=== PATIENT | female | born 1935 | race Caucasian/White ===

== ENCOUNTER 2019-05-26 19:07 | Inpatient (IN) | payer MEDICARE ==
[~2019-05-26] VITALS: Ht 170.2 cm; Wt 92.7 kg
--- NOTE | ~2019-05-26 | EC ---
PATIENT:TRIP WITT DATE OF SERVICE: 05/26/19 SEX: F MEDICAL RECORD: [id number] DATE OF : 37 LOCATION:D.M2 D.212 AGE OF PATIENT: 83 ADMISSION DATE: 05/26/19 REFERRING PHYSICIAN: INTERPRETING PHYSICIAN: MAYRA VELIZ MD ECHOCARDIOGRAM REPORT ECHO CHARGES 4 ECHO COMPLETE Date: 05/27/19 CLINICAL DIAGNOSIS: AFIB, HTN ECHOCARDIOGRAPHIC MEASUREMENTS (adult normal given) AC root (d.<3.7cm) 3.1 cm LV Septum d (<1.2 cm> 0.6 cm Valve Excursion 1.2 cm LV Septum (systole) 0.8 cm Left Atria (s.<4.0cm> 4.1 cm LVPW d(<1.2cm) 0.8 cm RV (d.<2.3cm) 2.5 cm LVPW (sytole) 0.9 cm LV diastole(<5.6CM) 5.3 cm MV E-F(>70mm/sec) cm LV systole 4.0 cm LVOT Diameter 1.8 cm MV exc.(>10mm) cm Est.ejection fraction (50-75%) % DOPPLER: LVIT cm/sec A 31 cm/sec E 115 cm/sec LA cm/sec RVSP 27.0 mmHg LVOT 87 cm/sec AOP1/2T m/s Asc. Ao 121 cm/sec RVOT 76 cm/sec RA cm/sec PA 91 cm/sec AV Gradient Peak 5.9 mmHg AV Mean 3.7 mmHg AV Area 1.8 cm MV Gradient Peak 5.8 mmHg MV Mean 2.3 mmHg MV Area cm COMMENTS: Head Athletic Trainer: Maylin [facility] Loom Overhauler: 1 Dr. Veliz TAPE# PACS Pericardial Effusion Y DATE OF SERVICE: ECHOCARDIOGRAM FINDINGS: 1. Left ventricular chamber size is within normal limits. Left ventricular systolic function is normal at 55%. 2. Left atrium is enlarged at 4.1 cm. Right atrium and right ventricle chamber sizes are as well mildly dilated. 3. Valvular structures have normal structure and motion. ECHOCARDIOGRAM REPORT [id number] TRIP WITT 4. Doppler interrogation reveals mild mitral regurgitation, mild tricuspid regurgitation, no other valvular insufficiency or stenosis. Pulmonary systolic pressure is estimated at 27 mmHg. 5. No evidence of pericardial effusion or left ventricular thrombus. 6. The patient is in and out of atrial fibrillation during the study. TRANSINT:[id number] Voice Confirmation ID: [id number] DOCUMENT ID: [id number] MAYRA VELIZ MD CC: [id number] DICTATION DATE: 05/28/191113 WEB DESIGN SPECIALIST: 05/28/19 1857 ADM IN [place] [id number] [place] [address]
--- NOTE | ~2019-05-26 | CN ---
PATIENT NAME:TRIP WITT MEDICAL RECORD: [id number] : 37 LOCATION:D. D.2124 ADMIT DATE: 05/26/19 ACCOUNT: [id number] CONSULTING PHYSICIAN: MAYRA OLIVEROS MD REFERRING PHYSICIAN: MILE YIP MD DATE OF CONSULTATION: 05/27/2019 CARDIOLOGY CONSULTATION DIAGNOSES: 1. Atrial fibrillation. 2. Weakness. 3. Shortness of breath. 4. Hypertension. 5. Renal insufficiency. HISTORY OF PRESENT ILLNESS: Mrs. Witt was admitted at [facility] within the last week with new-onset atrial fibrillation. She was placed on metoprolol, diltiazem, discharged. She presents here with continued weakness and shortness of breath. She has continued with her atrial fibrillation. When she presented to the Emergency Room, she was with rapid ventricular response in the 160s. Her Cardizem and metoprolol have been continued here, her heart rate still in the 90-110 range. Her systolic blood pressures in the 150 range. She is only on diltiazem, a total of 120 mg every day and metoprolol 25 mg b.i.d. She does have renal insufficiency with a creatinine of 2.6. I do not know the status if this is old or new. She is not having any chest pain or chest discomfort. She has no ST-T abnormalities on her EKG other than the atrial fibrillation. PHYSICAL EXAMINATION: CONSTITUTIONAL/GENERAL APPEARANCE: Well nourished, well developed, appears stated age. EYES: Lids and conjunctivae noninjected. No discharge. No pallor. ENT: Lips within normal limit. No cyanosis. No pallor. NECK: Carotid arteries, bilateral normal upstroke. No bruits. No thrills. No jugular venous pressure or distention. CERVICAL LYMPH NODES: Nontender. Nonenlarged. THYROID: Not enlarged. No nodules. CARDIOVASCULAR: Irregularly irregular with atrial fibrillation. RESPIRATORY: Respiratory effort, unlabored. Normal curvature. No thoracic deformity. No chest wall tenderness. Percussion, resonant. Auscultation, clear. No wheezes, no rales, no rhonchi. ABDOMEN: Soft, nondistended, nontender. No abdominal pain, no vomiting and normal appetite. MUSCULOSKELETAL: No joint tenderness, normal gait, normal tone. SKIN: Warm and dry. OVERALL IMPRESSION: Atrial fibrillation. The rate is not well controlled on her current medications. We will not increase her beta-magnolia due to her renal insufficiency, but we can increase the diltiazem as her blood pressure can tolerate this. We will increase the diltiazem to 180 mg a day. Echocardiogram has been ordered, really no other cardiac workup will be needed, only rate control of the atrial fibrillation. The other question will be anticoagulation. It appears that she has a history of falling and unsteadiness. She is on Lovenox right now. We will see if she is a candidate for long-term anticoagulation, it would be very questionable. CONSULT REPORT [id number] TRIP WITT TRANSINT:[id number] Voice Confirmation ID: [id number] DOCUMENT ID: [id number] MAYRA OLIVEROS MD CC: [id number] DICTATION DATE: 05/27/19 1056 PAGE DESIGNER: 05/27/19 1558 ADM IN [facility] [address] [place] [address]
[2019-05-26] MEDS ORDERED: METOPROLOL TART25 MG PO (19:11)
[2019-05-26] MEDS ORDERED: CELEXA10 MG PO (19:11)
[2019-05-26] MEDS ORDERED: CARDIZEM30 MG PO (19:24)
[2019-05-26 19:40] LABS: BASOPHILS 0.3 % (0-2); EOSINOPHILS 2.3 % (0-7); HEMATOCRIT 36.7 % (36.0-48.0); HEMOGLOBIN 12.1 g/dL (12-16); IMMATURE GRANULOCYTES 0.1 % (0-5); LYMPHOCYTES 9.8 % (15-50); MCH 31.9 pg (26.0-34.0); MCV 96.8 fL (80.0-100.0); MEAN PLATELET VOLUME 9.3 fL (7.4-10.4); MONOCYTES 10.6 % (2-11); NEUTROPHILS 76.9 % (40-80); PLATELET COUNT 278 10x3/uL (130-400); RBC 3.79 10x6/uL (4.00-5.40); RDW 14.6 % (11.5-14.5); WBC 7.9 10x3/uL (4.8-10.8)
--- NOTE | 2019-05-26 19:43 | NUR ---
EKG SHOWN TO EDP AT THIS TIME.
--- NOTE | 2019-05-26 19:52 | NUR ---
URINE SENT TO LAB
[2019-05-26 19:55] LABS: CALC OSMOLALITY 288 mosm/kg (275-300); CALCIUM 8.9 mg/dL (8.5-10.1); CARBON DIOXIDE 24.1 mmol/L (21.0-32.0); CHLORIDE - SERUM 107 mmol/L (98-107); CREATININE - SERUM 2.6 mg/dL (0.6-1.3); GLUCOSE 129 mg/dL (74-106); POTASSIUM - SERUM 4.2 mmol/L (3.5-5.1); SODIUM 140 mmol/L (136-145); UREA NITROGEN 36 mg/dL (7-18); eGFR NON AFRICAN AMERICAN 18 mL/min (90-120)
[2019-05-26 20:12] LABS: ALBUMIN 3.1 g/dL (3.4-5.0); ALKALINE PHOSPHATASE 84 U/L (30-120); ALT (SGPT) 47 U/L (10-68); BILIRUBIN - TOTAL 0.36 mg/dL (0.2-1.3); CKMB 2.1 U/L (0.0-3.6); CREATINE KINASE 107 UL (21-215); MAGNESIUM - SERUM 1.6 mg/dL (1.8-2.4); PROTEIN - SERUM 6.5 g/dL (6.4-8.2); THYROID STIMULATING HORMONE 4.11 uIU/mL (0.36-3.74); TROPONIN-I < 0.017 ng/mL (0.000-0.060)
[2019-05-26 20:19] LABS: INR 1.07 (0.85-1.17); PROTIME 13.8 SECONDS (11.6-15.0)
[2019-05-26 20:20] LABS: APTT 32.4 SECONDS (22.8-39.4)
[2019-05-26 20:25] LABS: UDS - AMPHET NEGATIVE QUAL (NEGATIVE); UDS - BARB NEGATIVE QUAL (NEGATIVE); UDS - BENZO NEGATIVE QUAL (NEGATIVE); UDS - COCAINE NEGATIVE QUAL (NEGATIVE); UDS - OPIATE NEGATIVE QUAL (NEGATIVE); UDS - PCP NEGATIVE QUAL (NEGATIVE); UDS - THC NEGATIVE QUAL (NEGATIVE)
[2019-05-26 20:31] VITALS: BP 164/114
[2019-05-26 20:31] LABS: BILIRUBIN NEGATIVE (NEGATIVE); GLUCOSE NEGATIVE (NEGATIVE); KETONE NEGATIVE (NEGATIVE); NITRITE NEGATIVE (NEGATIVE); UROBILINOGEN NORMAL (NORMAL)
[2019-05-26 20:32] LABS: BACTERIA MANY /hpf (NEGATIVE); EPITHELIAL CELLS 0-5 /hpf (0-5); RED CELLS - URINE 0-5 /hpf (0-5); WHITE CELLS - URINE >50 /hpf (NEGATIVE)
--- NOTE | 2019-05-26 20:48 | NUR ---
PT VOIDED ON BEDPAN AT THIS TIME. YELLOW, ODOROUS URINE. 200ML OUTPUT. PT REPOSITIONED FOR COMFORT. DENIES NEEDS. WILL CONTINUE TO MONITOR.
--- NOTE | 2019-05-26 22:02 | NUR ---
ASSISTED WITH BEDPAN AND JOAN [facility]ARE AT THIS TIME. PT VOIDED YELLOW, ODOROUS URINE. REPOSITIONED IN BED. DENIES FURTHER NEEDS. WILL CONTINUE TO MONITOR.
--- NOTE | 2019-05-26 23:36 | NUR ---
RECEIVED FROM ER VIA [facility] ([facility])[3], HISTORY AND MEDS REVIEWED, PLACED ON TELEMRTY, BED IS LOW, SRX2, CALL LIGHT IN REACH, AT BEDSIDE, WILL CONTINUE PLAN OF CARE
[2019-05-26 23:43] VITALS: BP 162/87; BMI 31.4
--- NOTE | 2019-05-26 23:54 | NUR ---
CUSTOMER RELATIONS ASSISTANT ASSESSMETN COMPLETED. PT DENIES ANY DISCOMFORT. VSS. CAF PER CM HR 75. SCABS AND SORES NOTED TO L HIP. BRUISES NOTED TO R CALF AND R ARM. IV TO L HAND WITH NS AT 75CC/HR. IV PATENT. SPOUSE AT BEDSIDE. SR UP X2, CALL LIGHT WITHIN REACH.
[2019-05-27 04:00] VITALS: BP 145/83
--- NOTE | 2019-05-27 07:11 | NUR ---
ASSESSMENT DONE. DENIES NEEDS
[2019-05-27 09:07] VITALS: BP 138/77
[2019-05-27 13:02] LABS: BASOPHILS 0.4 % (0-2); EOSINOPHILS 2.4 % (0-7); HEMATOCRIT 34.9 % (36.0-48.0); HEMOGLOBIN 11.8 g/dL (12-16); IMMATURE GRANULOCYTES 0.3 % (0-5); LYMPHOCYTES 13.5 % (15-50); MCH 32.6 pg (26.0-34.0); MCHC 33.8 g/dL (31.0-37.0); MCV 96.4 fL (80.0-100.0); MEAN PLATELET VOLUME 9.2 fL (7.4-10.4); MONOCYTES 8.4 % (2-11); PLATELET COUNT 243 10x3/uL (130-400); RBC 3.62 10x6/uL (4.00-5.40); RDW 14.7 % (11.5-14.5); WBC 7.6 10x3/uL (4.8-10.8)
[2019-05-27 13:38] LABS: ANION GAP 13.4 mmol/L (8-16); BILIRUBIN - TOTAL 0.4 mg/dL (0.2-1.3); CALCIUM 8.6 mg/dL (8.5-10.1); CARBON DIOXIDE 24.6 mmol/L (21.0-32.0); MAGNESIUM - SERUM 1.7 mg/dL (1.8-2.4); PROTEIN - SERUM 5.8 g/dL (6.4-8.2)
[2019-05-27 13:43] LABS: CREATININE - SERUM 1.8 mg/dL (0.6-1.3)
[2019-05-27 15:27] VITALS: Ht 170.2 cm; Wt 92.7 kg
--- NOTE | 2019-05-27 17:18 | NUR ---
WITHOUT CHANGES OR DISTRESS NOTED AT THIS TIME DENIES NEEDS, FAMILY AT SIDE
--- NOTE | 2019-05-27 18:50 | NUR ---
I have reviewed this patient and I concur with the Shift Assessment completed by the Licensed Practical Nurse today this shift.
[2019-05-27 20:00] VITALS: BP 148/92
--- NOTE | 2019-05-27 21:56 | NUR ---
INITIAL ROUNDS COMPLETED AT 1915 HRS. ASSISTED PT TO BR. VOIDED MODERATE AMOUNT OF URNE. ASSISTED BACK TO BED. PT UNSTEADY ON FEET. ASSESSMENT COMPLETED AT 2019 HRS. VSS. CAF PER CM HR 74. PT ALERT AND ORIENTED TO PERSON AND PLACE. REORIENTED TO TIME. IV TO L HAND SL. LUNGS DIMINISHED IN BASES BILAT. MELO AREA AND SCABS NOTED TO L HIP. BRUISES NOTED TO R ARMA ND R CALF. LEBLANC. PALPABLE PERIPHERAL PULSES. OLD R MASTECTOMY. PM MEDS GIVEN. PT URRENTLY RESTING WITH EYES CLOSED. RESP EVEN AND REGULAR. SRUP X2,CALL LIGHT WITHIN REACH AND BED ALARM ON.
--- NOTE | 2019-05-27 23:16 | NUR ---
HIBICLENS BATH DONE, BED LINENS CHANGED. PT TOLERATED ACTIVITY WELL. SR UP X2, CALL LIGHT WITHIN REACH AND BED ALARM ON.
[2019-05-28] VITALS: BP 159/73
--- NOTE | 2019-05-28 01:29 | NUR ---
PT CRAWLING OUT OF BED STATING SHE NEEDS TO USE THE BATHROOM. ASSISTED PT TO BR. PT VERY UNSTEADY ON FEET. VOIDED SMALL AMOUNT OF YELLOW URINE. ASSISTED BACK TO BED. SR UP X2, CALL LIGHT WITHIN REACH AND BED ALARM ON.
[2019-05-28 04:00] VITALS: BP 144/80
--- NOTE | 2019-05-28 04:59 | NUR ---
PT RESTING WITH EYES CLOSED. RESP EVEN AND REGULAR. SR UP X2, CALL LIGHT WITHIN REACH AND BED ALARM ON.
[2019-05-28 05:03] LABS: BASOPHILS 0.4 % (0-2); EOSINOPHILS 3.5 % (0-7); HEMATOCRIT 34.3 % (36.0-48.0); HEMOGLOBIN 11.5 g/dL (12-16); IMMATURE GRANULOCYTES 0.3 % (0-5); MCH 32.1 pg (26.0-34.0); MCHC 33.5 g/dL (31.0-37.0); MCV 95.8 fL (80.0-100.0); MEAN PLATELET VOLUME 8.8 fL (7.4-10.4); MONOCYTES 10.6 % (2-11); NEUTROPHILS 64.2 % (40-80); PLATELET COUNT 220 10x3/uL (130-400); RBC 3.58 10x6/uL (4.00-5.40); RDW 14.7 % (11.5-14.5); WBC 6.8 10x3/uL (4.8-10.8)
[2019-05-28 05:25] LABS: ALBUMIN 2.9 g/dL (3.4-5.0); BILIRUBIN - TOTAL 0.39 mg/dL (0.2-1.3); CALCIUM 8.5 mg/dL (8.5-10.1); CARBON DIOXIDE 23.9 mmol/L (21.0-32.0); CREATININE - SERUM 1.9 mg/dL (0.6-1.3); MAGNESIUM - SERUM 1.7 mg/dL (1.8-2.4); PHOSPHOROUS 3.4 mg/dL (2.5-4.9); POTASSIUM - SERUM 3.9 mmol/L (3.5-5.1); PROTEIN - SERUM 5.6 g/dL (6.4-8.2)
--- NOTE | 2019-05-28 05:57 | NUR ---
VSS THEOUGHOUT NIGHT. CAF PER CM. PT CONTINUES TO ATTEMPT TO CRAWL OUT OF BED WHEN NEEDS TO USE BR. PT UNABLE TO GRASP CONCEPT OF CALL LIGHT. NEEDS MET; WILL CONTINUE TO MONITOR.
[2019-05-28 07:30] VITALS: BP 153/94
[2019-05-28 11:30] VITALS: BP 142/83
[2019-05-28 15:30] VITALS: BP 148/88
--- NOTE | 2019-05-28 17:30 | NUR ---
I have reviewed this patient and I concur with the Shift Assessment completed by the Licensed Practical Nurse today this shift.
--- NOTE | 2019-05-28 18:03 | NUR ---
PT A/O X3 . VSS. PT LATHARGIC. AND STATES SHE IS NOT FEELING WELL. AT BEDSIDE. BED LOW CALL LIGHT WITHIN REACH. WILL CONTINUE TO MONITOR.
--- NOTE | 2019-05-28 19:50 | NUR ---
REPORT RECIEVED AND INITIAL ROUNDS COMPLETED. PT RESTING IN BED WITH EYES CLOSED. NO FAMILY PRESENT. IV TO LEFT HAND WITH NS @ 75ML/HR. CAF PER TELEMETRY. NONLABORED RESPIRATIONS ON ROOM AIR. CPOC. CALL LIGHT IN REACH.
[2019-05-28 20:00] VITALS: BP 146/74
[2019-05-29 00:01] VITALS: BP 157/80
--- NOTE | 2019-05-29 02:59 | NUR ---
RESTING IN BED. WAS GIVEN TYLENOL FOR GENERALIZED DISCOMFORT AND ALSO GOTTEN UP AND TAKEN TO THE BATHROOM TO VOID. BACK TO BED WITH 2 PERSON ASSISTANCE. GAIT IS UNSTEADY AND FALL PRECAUTIONS ARE IN PLACE. CPOC. IVF INFUSING.
[2019-05-29 05:41] LABS: BASOPHILS 0.5 % (0-2); EOSINOPHILS 3.3 % (0-7); HEMATOCRIT 34.5 % (36.0-48.0); HEMOGLOBIN 11.4 g/dL (12-16); IMMATURE GRANULOCYTES 0.1 % (0-5); LYMPHOCYTES 22.5 % (15-50); MCH 31.7 pg (26.0-34.0); MCV 95.8 fL (80.0-100.0); MEAN PLATELET VOLUME 9.4 fL (7.4-10.4); MONOCYTES 12.8 % (2-11); NEUTROPHILS 60.8 % (40-80); PLATELET COUNT 247 10x3/uL (130-400); RDW 14.7 % (11.5-14.5); WBC 7.3 10x3/uL (4.8-10.8)
[2019-05-29 06:57] LABS: ANION GAP 10.9 mmol/L (8-16); BILIRUBIN - TOTAL 0.38 mg/dL (0.2-1.3); CALCIUM 8.1 mg/dL (8.5-10.1); CARBON DIOXIDE 24.6 mmol/L (21.0-32.0); CREATININE - SERUM 1.8 mg/dL (0.6-1.3); MAGNESIUM - SERUM 1.7 mg/dL (1.8-2.4); PHOSPHOROUS 2.9 mg/dL (2.5-4.9); POTASSIUM - SERUM 3.5 mmol/L (3.5-5.1); PROTEIN - SERUM 6.1 g/dL (6.4-8.2)
--- NOTE | 2019-05-29 07:20 | NUR ---
RECIEVE REPORT. CONFUSE X2. FALL PRECAUTIONS FOLLOWED. ASSIST UP TO RESTROOM. CONTINUE PLAN OF CARE AND SAFETY PRECAUTIONS.
[2019-05-29 09:52] VITALS: BP 138/83
[2019-05-29 13:58] VITALS: BP 142/117
--- NOTE | 2019-05-29 16:14 | NUR ---
Rehab Prescreening Consult recieved and the chart has been reviewed. She is [facility] and will require a preauth for the ARU. Sofie Cline RN Clinical Liaison, Rehab
--- NOTE | 2019-05-29 17:20 | MORECARE ---
CASE MANAGEMENT DISCHARGE SUMMARY PATIENT: TRIP WITT UNIT: [id number] ADM DATE: 05/26/19 AGE: 83 : 36 SEX: F ROOM/BED: D.9718 AUTHOR: MOE,DOC PHYSICIAN: REFERRING PHYSICIAN: MILE YIP MD DATE OF SERVICE: 05/29/19 Discharge Plan Patient Name: TRIP WITT [facility] [facility] 1935 Planned Disposition: Inpatient Rehab Anticipated Discharge Date: 05/30/19 Discharge Date: Expected LOS: 4 Initial Reviewer: [id number] Initial Review Date: 05/29/2019 Generated: 05/29/19 6:20 pm Comments DCP- Discharge Planning Updated by [id number]: Jordon Goodman on 05/29/19 4:[address] Patient Name: TRIP WITT Admission Status: ER Accout number: [id number] Admission Date: 05-26-2019 : 1935 Admission Diagnosis: Attending: COLIN YIP Current LOS: 3 Anticipated DC Date: 05-30-2019 Planned Disposition: Inpatient Rehab Primary Insurance: [facility] MEDICARE SOLUTIONS PLANNED EXTERNAL PROVIDER: [facility] INPATIENT REHAB Discharge Planning Comments: CM RECEIVED INPATIENT REHAB PRESCREENING AND ORDER FOR NEBULIZER AND NEB MEDICATIONS. CM MET WITH PT IN ROOM TO DISCUSS DISCHARGE PLANNING AND NEEDS. PT REPORTS LIVING AT HOME INDEPENDENTLY WITH HER SPOUSE. PT HAS A CANE WITH NO MEDICAL EQUIPMENT PROVIDER PREFERENCE. PT HAS NO OUTSIDE SERVICES ASSISTING IN THE HOME. CM DISCUSSED AVAILABILITY OF HOME HEALTH, REHAB SERVICES AND MEDICAL EQUIPMENT. CM DISCUSSED AVAILABILITY OF REHAB, PROVIDERS AND LOCATIONS. PT WANTS REHAB AT [place]. IMPORTANT MESSAGE FROM MEDICARE PROVIDED AND EXPLAINED. CHOICE SIGNED FOR [facility] INPATIENT RE[facility]. CM WAITING INSURANCE DETERMINATION FOR INPATIENT REHAB AT [place]. Hotel Director: Jordon Goodman DCPIA - Discharge Planning Initial Assessment Updated by [email or web address]: Jordon Goodman on 05/29/19 5:13 pm * Is the patient Alert and Oriented? Yes * How many steps to enter\exit or inside your home? NONE * PCP DR. LEONE * Pharmacy [facility] * Preadmission Environment Home with Family * ADLs Independent * Equipment Cane * Other Equipment NO MEDICAL EQUIPMENT PROVIDER PREFERENCE * List name and contact numbers for known caregivers / representatives who currently or will assist patient after discharge: MONIKA SUGGS, * Verbal permission to speak to the caregivers and representatives has been obtained from the patient. N/A * Community resources currently utilized None * Please name any agencies selected above. NONE * Additional services required to return to the preadmission environment? Yes * Can the patient safely return to the preadmission environment? Yes * Has this patient been hospitalized within the prior 30 days at any hospital? Yes Coverage Notice Reviewer: [id number] Goodman Notice Issued Date-Time: 05/29/2019 16:40 Notice Type: IM Discharge Notice Notice Delivered To: Patient Relationship to Patient: Accounts Receivable Specialist Name: Delivery Method: HAND - Hand Delivered Tory Days: Prior Verbal Notification: Recipient Understood Notice: Yes Recipient Signature: Yes Med Rec Note Co-signed by Attending: Coverage Notice Comment: Reviewer: JASS Goodman Notice Issued Date-Time: 05/29/2019 16:40 Notice Type: Patient Choice Letter Notice Delivered To: Patient Relationship to Patient: Accounts Receivable Specialist Name: Delivery Method: HAND - Hand Delivered Tory Days: Prior Verbal Notification: Recipient Understood Notice: Yes Recipient Signature: Yes Med Rec Note Co-signed by Attending: Coverage Notice Comment: [facility] IP REHAB Patient Name: TRIP WITT Page [id number] at 1720 All edits/amendments must be made on the electronic document DICTATION DATE: 05/29/191719 PRINT PRESS OPERATOR: ALVERTO 05/29/19 172 RPT#: [id number] DC DATE: STATUS: ADM IN [facility] [address] [place] [address] END OF REPORT
[2019-05-29 17:40] VITALS: BP 159/87
--- NOTE | 2019-05-29 20:30 | NUR ---
OT NOTE: PT COMPLETED SIT TO STAND WITH MIN A. PT COMPLETED UE AROM EXS AT EOB WITH SBA. PT COMPLETED FACE WASH WITH SETUP. PT REQUIRED MIN VERBAL CUES. [id number] THANK YOU,GENEVA TIWARI
[2019-05-29 22:23] VITALS: BP 149/99
--- NOTE | 2019-05-30 03:34 | NUR ---
I have reviewed this patient and I concur with the Shift Assessment completed by the Licensed Practical Nurse today this shift.
[2019-05-30 03:53] VITALS: BP 152/100
[2019-05-30 06:15] LABS: BASOPHILS 0.5 % (0-2); EOSINOPHILS 3.2 % (0-7); HEMATOCRIT 33.9 % (36.0-48.0); HEMOGLOBIN 11.2 g/dL (12-16); IMMATURE GRANULOCYTES 0.2 % (0-5); LYMPHOCYTES 22.1 % (15-50); MCH 31.4 pg (26.0-34.0); MEAN PLATELET VOLUME 9.4 fL (7.4-10.4); MONOCYTES 13.2 % (2-11); NEUTROPHILS 60.8 % (40-80); PLATELET COUNT 249 10x3/uL (130-400); RBC 3.57 10x6/uL (4.00-5.40); RDW 14.6 % (11.5-14.5); WBC 6.2 10x3/uL (4.8-10.8)
[2019-05-30 06:51] LABS: ANION GAP 13.1 mmol/L (8-16); BILIRUBIN - TOTAL 0.39 mg/dL (0.2-1.3); CALCIUM 8.4 mg/dL (8.5-10.1); CARBON DIOXIDE 24.8 mmol/L (21.0-32.0); CREATININE - SERUM 1.6 mg/dL (0.6-1.3); MAGNESIUM - SERUM 2.1 mg/dL (1.8-2.4); POTASSIUM - SERUM 3.9 mmol/L (3.5-5.1); PROTEIN - SERUM 6.2 g/dL (6.4-8.2)
--- NOTE | 2019-05-30 07:20 | NUR ---
RECIEVE REPORT. ALERT, TEARFUL, CONFUSED. LINENS SOILED. LINEN CHANGE COMPLETE. ASSIST UP TO CHAIR FOR BREAKFAST. DENIES ANY CHANGE. CONTINUE PLAN OF CARE AND SAFETY PRECAUTIONS.
[2019-05-30 11:02] VITALS: BP 135/91
[2019-05-30 12:00] VITALS: BP 138/98
--- NOTE | 2019-05-30 15:33 | NUR ---
Rehab Note- Spoke with Jasiel with [facility], the patient's case is still pending for an inpatient acute rehab stay, pending Auth # is [id number]. Will continue to await determination from [facility]. Thank you for this referral! Daylin Monreal RN Clinical Liaison, [facility] Rehab
[2019-05-30 17:42] VITALS: BP 168/115
[2019-05-30 22:02] VITALS: BP 153/96
[2019-05-31 00:37] VITALS: BP 144/99
[2019-05-31 06:01] VITALS: BP 158/109
[2019-05-31 06:04] LABS: BASOPHILS 0.4 % (0-2); EOSINOPHILS 3.1 % (0-7); HEMATOCRIT 35.1 % (36.0-48.0); HEMOGLOBIN 11.8 g/dL (12-16); IMMATURE GRANULOCYTES 0.1 % (0-5); LYMPHOCYTES 19.6 % (15-50); MCH 31.8 pg (26.0-34.0); MCHC 33.6 g/dL (31.0-37.0); MCV 94.6 fL (80.0-100.0); MEAN PLATELET VOLUME 9.4 fL (7.4-10.4); MONOCYTES 12.5 % (2-11); NEUTROPHILS 64.3 % (40-80); PLATELET COUNT 252 10x3/uL (130-400); RBC 3.71 10x6/uL (4.00-5.40); RDW 14.5 % (11.5-14.5); WBC 7.1 10x3/uL (4.8-10.8)
[2019-05-31 06:37] LABS: ANION GAP 10.5 mmol/L (8-16); BILIRUBIN - TOTAL 0.45 mg/dL (0.2-1.3); CALCIUM 8.7 mg/dL (8.5-10.1); CARBON DIOXIDE 27.4 mmol/L (21.0-32.0); CREATININE - SERUM 1.5 mg/dL (0.6-1.3); MAGNESIUM - SERUM 1.9 mg/dL (1.8-2.4); POTASSIUM - SERUM 3.9 mmol/L (3.5-5.1); PROTEIN - SERUM 6.2 g/dL (6.4-8.2)
--- NOTE | 2019-05-31 07:10 | NUR ---
REOPORT RECEIVED FROM SENIOR PROGRAM ANALYST AND PATIENT CARE ASSUMED. PATIENT LAYING IN BED ON RT SIDE WITH EYES CLOSED AND BREATHING EVENLY. WILL CONTINUE WITH PLAN OF CARE. SR UP X 2 BED IN LOW POSITION AND CALL LIGHT IN REACH.
--- NOTE | 2019-05-31 10:37 | NUR ---
Recieved a call from Yumiko at [facility]. This patient has been denied for ARU. If physician disagrees a peer to peer can be set up by calling [phone] before 3:00 pm. Discussed in the IDT with CM. Sofie Cline RN CL
--- NOTE | 2019-05-31 11:15 | NUR ---
PATIENT IS STABLE AND VSS. PATIENT DENIES ANY NEEDS OR PAIN. DTR IN ROOM ANSWERED QUESTIONS TO SATISFACTION. WILL CONTINUE TO MONITOR. SR UP X 2 BED IN LOW POSITION AND CALL LIGHT IN REACH.
--- NOTE | 2019-05-31 12:25 | MORECARE ---
CASE MANAGEMENT DISCHARGE SUMMARY PATIENT: TRIP WITT UNIT: [id number] ADM DATE: 05/26/19 AGE: 83 : 36 SEX: F ROOM/BED: D.8674 AUTHOR: MOE,DOC PHYSICIAN: REFERRING PHYSICIAN: MILE YIP MD DATE OF SERVICE: 05/31/19 Discharge Plan Patient Name: TRIP WITT [facility] [facility] 1935 Planned Disposition: Inpatient Rehab Anticipated Discharge Date: 05/31/19 Discharge Date: Expected LOS: 5 Initial Reviewer: [email or web address] Initial Review Date: 05/29/2019 Generated: 05/31/19 1:24 pm Comments DCP- Discharge Planning Updated by [id number]: Jordon Goodman on 05/29/19 4:[address] Patient Name: TRIP WITT Admission Status: ER Accout number: [id number] Admission Date: 05-26-2019 : 1935 Admission Diagnosis: Attending: COLIN YIP Current LOS: 3 Anticipated DC Date: 05-30-2019 Planned Disposition: Inpatient Rehab Primary Insurance: [facility] MEDICARE SOLUTIONS PLANNED EXTERNAL PROVIDER: [facility] INPATIENT REHAB Discharge Planning Comments: CM RECEIVED INPATIENT REHAB PRESCREENING AND ORDER FOR NEBULIZER AND NEB MEDICATIONS. CM MET WITH PT IN ROOM TO DISCUSS DISCHARGE PLANNING AND NEEDS. PT REPORTS LIVING AT HOME INDEPENDENTLY WITH HER SPOUSE. PT HAS A CANE WITH NO MEDICAL EQUIPMENT PROVIDER PREFERENCE. PT HAS NO OUTSIDE SERVICES ASSISTING IN THE HOME. CM DISCUSSED AVAILABILITY OF HOME HEALTH, REHAB SERVICES AND MEDICAL EQUIPMENT. CM DISCUSSED AVAILABILITY OF REHAB, PROVIDERS AND LOCATIONS. PT WANTS REHAB AT [place]. IMPORTANT MESSAGE FROM MEDICARE PROVIDED AND EXPLAINED. CHOICE SIGNED FOR [facility] INPATIENT RE[facility]. CM WAITING INSURANCE DETERMINATION FOR INPATIENT REHAB AT [place]. Artificial Breeding Technician: Jordon Goodman DCPIA - Discharge Planning Initial Assessment Updated by [id number]: Jordon Goodman on 05/29/19 5:13 pm * Is the patient Alert and Oriented? Yes * How many steps to enter\exit or inside your home? NONE * PCP DR. LEONE * Pharmacy [facility] * Preadmission Environment Home with Family * ADLs Independent * Equipment Cane * Other Equipment NO MEDICAL EQUIPMENT PROVIDER PREFERENCE * List name and contact numbers for known caregivers / representatives who currently or will assist patient after discharge: MONIKA SUGGS, * Verbal permission to speak to the caregivers and representatives has been obtained from the patient. N/A * Community resources currently utilized None * Please name any agencies selected above. NONE * Additional services required to return to the preadmission environment? Yes * Can the patient safely return to the preadmission environment? Yes * Has this patient been hospitalized within the prior 30 days at any hospital? Yes Coverage Notice Reviewer: [id number] Goodman Notice Issued Date-Time: 05/29/2019 16:40 Notice Type: IM Discharge Notice Notice Delivered To: Patient Relationship to Patient: Chute Tapper Name: Delivery Method: HAND - Hand Delivered Tory Days: Prior Verbal Notification: Recipient Understood Notice: Yes Recipient Signature: Yes Med Rec Note Co-signed by Attending: Coverage Notice Comment: Reviewer: JASS Goodman Notice Issued Date-Time: 05/29/2019 16:40 Notice Type: Patient Choice Letter Notice Delivered To: Patient Relationship to Patient: Chute Tapper Name: Delivery Method: HAND - Hand Delivered Tory Days: Prior Verbal Notification: Recipient Understood Notice: Yes Recipient Signature: Yes Med Rec Note Co-signed by Attending: Coverage Notice Comment: [facility] IP REHAB Last DP export: 05/29/19 4:20 pm Patient Name: TRIP WITT Page [id number] at 1225 All edits/amendments must be made on the electronic document DICTATION DATE: 05/31/194 DISCHARGE SPECIALIST: ALVERTO 05/31/19 1224 RPT#: [id number] DC DATE: STATUS: ADM IN [facility] [address] [place] [address] END OF REPORT
--- NOTE | 2019-05-31 12:32 | MORECARE ---
CASE MANAGEMENT DISCHARGE SUMMARY PATIENT: TRIP WITT UNIT: [id number] ADM DATE: 05/26/19 AGE: 83 : 36 SEX: F ROOM/BED: D.2124 AUTHOR: MOE,DOC PHYSICIAN: REFERRING PHYSICIAN: MILE YIP MD DATE OF SERVICE: 05/31/19 Discharge Plan Patient Name: TRIP WITT [facility] [facility] 1935 Planned Disposition: Inpatient Rehab Anticipated Discharge Date: 05/31/19 Discharge Date: Expected LOS: 5 Initial Reviewer: [id number] Initial Review Date: 05/29/2019 Generated: 05/31/19 1:32 pm Comments DCP- Discharge Planning Updated by [email or web address]: Jordon Goodman on 05/31/19 11:[address] Patient Name: TRIP WITT Encounter No: [id number] : 1935 Primary Insurance: [facility] MEDICARE SOLUTIONS Anticipated DC Date: 05-31-2019 Planned Disposition: Inpatient Rehab External Planned Provider: [facility] INPATIENT REH[facility] DCP follow-up note: CM SPOKE TO STEVEN OF INPATIENT REHAB AT [facility] MEETING WHO INFORMED TEAM THAT INSURANCE HAS DECLINED INPATIENT REHAB. DR. ARTIS STATES HE WILL DO PEER TO PEER WITH INSURANCE FOR RE CONSIDERATION HE FEELS SHE NEEDS INPATIENT REHAB. RN CM EDDS INFORMED CM THAT INSURANCE HAS INDICATED TO HER THAT [facility] IS APPROPRIATE FOR PT'S NEEDS. CM CALLED PT'S INSURANCE COMPANY PER DIRECTIONS TO ARRANGE PEER TO PEER, , EXT [phone], LEFT VERY DETAILED MESSAGE FOR NURSE HANSON, REQUESTING PEER TO PEER FOR INPATIENT REHAB DENIAL AND LEFT CM AND DR. ARTIS'S PHONE NUMBERS. CM TO MEET WITH PT TO INFORM OF DENIAL AND WAITING RESULTS OF PEER TO PEER FOR INPATIENT REHAB RECONSIDERATION. MELONY Early DCP- Discharge Planning Updated by [id number]: Jordon Goodman on 05/29/19 4:[address] Patient Name: TRIP WITT Admission Status: ER Accout number: [id number] Admission Date: 05-26-2019 : 1935 Admission Diagnosis: Attending: COLIN YIP Current LOS: 3 Anticipated DC Date: 05-30-2019 Planned Disposition: Inpatient Rehab Primary Insurance: [facility] MEDICARE SOLUTIONS PLANNED EXTERNAL PROVIDER: [facility] INPATIENT REHAB Discharge Planning Comments: CM RECEIVED INPATIENT REHAB PRESCREENING AND ORDER FOR NEBULIZER AND NEB MEDICATIONS. CM MET WITH PT IN ROOM TO DISCUSS DISCHARGE PLANNING AND NEEDS. PT REPORTS LIVING AT HOME INDEPENDENTLY WITH HER SPOUSE. PT HAS A CANE WITH NO MEDICAL EQUIPMENT PROVIDER PREFERENCE. PT HAS NO OUTSIDE SERVICES ASSISTING IN THE HOME. CM DISCUSSED AVAILABILITY OF HOME HEALTH, REHAB SERVICES AND MEDICAL EQUIPMENT. CM DISCUSSED AVAILABILITY OF REHAB, PROVIDERS AND LOCATIONS. PT WANTS REHAB AT [place]. IMPORTANT MESSAGE FROM MEDICARE PROVIDED AND EXPLAINED. CHOICE SIGNED FOR [facility] INPATIENT REHAB. CM WAITING INSURANCE DETERMINATION FOR INPATIENT REHAB AT [place]. Senior Pastor: Jordon Goodman DCPIA - Discharge Planning Initial Assessment Updated by [id number]: Jordon Goodman on 05/29/19 5:13 pm * Is the patient Alert and Oriented? Yes * How many steps to enter\exit or inside your home? NONE * PCP DR. LEONE * Pharmacy [facility] * Preadmission Environment Home with Family * ADLs Independent * Equipment Cane * Other Equipment NO MEDICAL EQUIPMENT PROVIDER PREFERENCE * List name and contact numbers for known caregivers / representatives who currently or will assist patient after discharge: HAL WITT, SPOUSE, * Verbal permission to speak to the caregivers and representatives has been obtained from the patient. N/A * Community resources currently utilized None * Please name any agencies selected above. NONE * Additional services required to return to the preadmission environment? Yes * Can the patient safely return to the preadmission environment? Yes * Has this patient been hospitalized within the prior 30 days at any hospital? Yes Coverage Notice Reviewer: [id number] Sravan Goodman Notice Issued Date-Time: 05/29/2019 16:40 Notice Type: IM Discharge Notice Notice Delivered To: Patient Relationship to Patient: Booking Police Officer Name: Delivery Method: HAND - Hand Delivered Tory Days: Prior Verbal Notification: Recipient Understood Notice: Yes Recipient Signature: Yes Med Rec Note Co-signed by Attending: Coverage Notice Comment: Reviewer: [id number] Sravan Goodman Notice Issued Date-Time: 05/29/2019 16:40 Notice Type: Patient Choice Letter Notice Delivered To: Patient Relationship to Patient: Booking Police Officer Name: Delivery Method: HAND - Hand Delivered Tory Days: Prior Verbal Notification: Recipient Understood Notice: Yes Recipient Signature: Yes Med Rec Note Co-signed by Attending: Coverage Notice Comment: [facility] IP REHAB Last DP export: 05/31/19 11:25 a Patient Name: TRIP WITT Page 06106 at 1232 All edits/amendments must be made on the electronic document DICTATION DATE: 05/31/19 1232 ROUTE JUMPER: ALVERTO 05/31/19 1232 RPT#: [id number] DC DATE: STATUS: ADM IN [facility] [address] [place] [address] END OF REPORT
--- NOTE | 2019-05-31 13:45 | NUR ---
Rehab Note- Called [facility] this AM to find that the patient was denied an inpatient acute rehab stay. Nurse that reviewed was Shital Richmond. contact # [phone] Ext [phone]. Will follow at this time due to possible Peer to Peer to be completed. Thank you for this referral! Daylin Monreal RN Clinical Liaison, [facility] Rehab
--- NOTE | 2019-05-31 14:15 | NUR ---
PATIENT REFUSED BATH AND LINEN CHANGE.
--- NOTE | 2019-05-31 14:15 | NUR ---
PATIENT UP TO SHOWER AND HAD COMPLETE LINEN CHANGE. PATIENT TOLERATED WELL. WILL CONTINUE TO MONITOR. SR UP X 2 BED IN LOW POSITION AND CALL LIGHT IN REACH.
--- NOTE | 2019-05-31 17:04 | NUR ---
PATIENT SITTING UP IN BED EATING SUPPER. PATIENT IS STABLE AND VSS. PATIENT DENIES ANY NEEDS OR PAIN. WILL CONTINUE TO MONITOR. SR UP X 2 BED IN LOW POSITION AND CALL LIGHT IN REACH.
--- NOTE | 2019-05-31 18:06 | MORECARE ---
CASE MANAGEMENT DISCHARGE SUMMARY PATIENT: TRIP WITT UNIT: [id number] ADM DATE: 05/26/19 AGE: 83 : 36 SEX: F ROOM/BED: D.6394 AUTHOR: MOE,DOC PHYSICIAN: REFERRING PHYSICIAN: MILE YIP MD DATE OF SERVICE: 05/31/19 Discharge Plan Patient Name: TRIP WITT [facility] [facility] 1935 Planned Disposition: Inpatient Rehab Anticipated Discharge Date: 05/31/19 Discharge Date: Expected LOS: 5 Initial Reviewer: [id number] Initial Review Date: 05/29/2019 Generated: 05/31/19 7:06 pm Comments DCP- Discharge Planning Updated by [id number]: Jordon Wilson on 05/31/19 5:[address] Patient Name: TRIP WITT Encounter No: [id number] : 1935 Primary Insurance: [facility] MEDICARE SOLUTIONS Anticipated DC Date: 05-31-2019 Planned Disposition: Inpatient Rehab External Planned Provider: [facility] INPATIENT REH[facility] DCP follow-up note: CM SPOKE TO STEVEN OF INPATIENT REHAB AT [facility] MEETING WHO INFORMED TEAM THAT INSURANCE HAS DECLINED INPATIENT REHAB. DR. ARTIS STATES HE WILL DO PEER TO PEER WITH INSURANCE FOR RE CONSIDERATION HE FEELS SHE NEEDS INPATIENT REHAB. RN ILIR EDDS INFORMED CM THAT INSURANCE HAS INDICATED TO HER THAT [facility] IS APPROPRIATE FOR PT'S NEEDS. CM CALLED PT'S INSURANCE COMPANY PER DIRECTIONS TO ARRANGE PEER TO PEER, , EXT [phone], LEFT VERY DETAILED MESSAGE FOR NURSE HANSON, REQUESTING PEER TO PEER FOR INPATIENT REHAB DENIAL AND LEFT CM AND DR. ARTIS'S PHONE NUMBERS. CM TO MEET WITH PT TO INFORM OF DENIAL AND WAITING RESULTS OF PEER TO PEER FOR INPATIENT REHAB RECONSIDERATION. Jordon Wilson, CASE MANAGEMENT Appended by Jordon Wilson on 05/31/2019 18:00 CDT: CM MET WITH PT AND SPOUSE IN ROOM INFORMED OF DENIAL BY INSURANCE FOR INPATIENT REHAB. PT AND SPOUSE AGREE THAT PT NEEDS REHAB AND IF PEER TO PEER DOES NOT WORK TO GET PT INTO INPATIENT REHAB HERE, THEY WOULD LIKE REFERRAL TO [facility], CHOICE SIGNED. CM WAITING ON PEER TO PEER WITH INSURANCE BY DR. ARTIS. IF UNSUCCESSFUL, CM WILL SEND REFERRAL TO [facility], [facility]. JORDON WILSON, CASE MANAGEMENT DCP- Discharge Planning Updated by [id number]: Jordon Wilson on 05/29/19 4:[address] Patient Name: TRIP WITT Admission Status: ER Accout number: [id number] Admission Date: 05-26-2019 : 1935 Admission Diagnosis: Attending: COLIN YIP Current LOS: 3 Anticipated DC Date: 05-30-2019 Planned Disposition: Inpatient Rehab Primary Insurance: [facility] MEDICARE SOLUTIONS PLANNED EXTERNAL PROVIDER: [facility] INPATIENT REHAB Discharge Planning Comments: CM RECEIVED INPATIENT REHAB PRESCREENING AND ORDER FOR NEBULIZER AND NEB MEDICATIONS. CM MET WITH PT IN ROOM TO DISCUSS DISCHARGE PLANNING AND NEEDS. PT REPORTS LIVING AT HOME INDEPENDENTLY WITH HER SPOUSE. PT HAS A CANE WITH NO MEDICAL EQUIPMENT PROVIDER PREFERENCE. PT HAS NO OUTSIDE SERVICES ASSISTING IN THE HOME. CM DISCUSSED AVAILABILITY OF HOME HEALTH, REHAB SERVICES AND MEDICAL EQUIPMENT. CM DISCUSSED AVAILABILITY OF REHAB, PROVIDERS AND LOCATIONS. PT WANTS REHAB AT [place]. IMPORTANT MESSAGE FROM MEDICARE PROVIDED AND EXPLAINED. CHOICE SIGNED FOR [facility] INPATIENT RE[facility]. CM WAITING INSURANCE DETERMINATION FOR INPATIENT REHAB AT [place]. Power System Dispatcher: Jordon Wilson DCPIA - Discharge Planning Initial Assessment Updated by [id number]: Jordon Wilson on 05/29/19 5:13 pm * Is the patient Alert and Oriented? Yes * How many steps to enter\exit or inside your home? NONE * PCP DR. LEONE * Pharmacy [facility] * Preadmission Environment Home with Family * ADLs Independent * Equipment Cane * Other Equipment NO MEDICAL EQUIPMENT PROVIDER PREFERENCE * List name and contact numbers for known caregivers / representatives who currently or will assist patient after discharge: HAL WITT, SPOUSE, * Verbal permission to speak to the caregivers and representatives has been obtained from the patient. N/A * Community resources currently utilized None * Please name any agencies selected above. NONE * Additional services required to return to the preadmission environment? Yes * Can the patient safely return to the preadmission environment? Yes * Has this patient been hospitalized within the prior 30 days at any hospital? Yes Coverage Notice Reviewer: [id number] Wilson Notice Issued Date-Time: 05/29/2019 16:40 Notice Type: IM Discharge Notice Notice Delivered To: Patient Relationship to Patient: General Accounting Manager Name: Delivery Method: HAND - Hand Delivered Tory Days: Prior Verbal Notification: Recipient Understood Notice: Yes Recipient Signature: Yes Med Rec Note Co-signed by Attending: Coverage Notice Comment: Reviewer: JASS Wilson Notice Issued Date-Time: 05/29/2019 16:40 Notice Type: Patient Choice Letter Notice Delivered To: Patient Relationship to Patient: General Accounting Manager Name: Delivery Method: HAND - Hand Delivered Tory Days: Prior Verbal Notification: Recipient Understood Notice: Yes Recipient Signature: Yes Med Rec Note Co-signed by Attending: Coverage Notice Comment: [facility] IP REHAB Reviewer: [id number] Wilson Notice Issued Date-Time: 05/31/2019 13:10 Notice Type: Patient Choice Letter Notice Delivered To: Family Member Relationship to Patient: Spouse General Accounting Manager Name: HAL WITT Delivery Method: HAND - Hand Delivered Tory Days: Prior Verbal Notification: Recipient Understood Notice: Yes Recipient Signature: Yes Med Rec Note Co-signed by Attending: Coverage Notice Comment: [facility] Last DP export: 05/31/19 11:32 a Patient Name: TRIP WITT Page [phone] at 1806 All edits/amendments must be made on the electronic document DICTATION DATE: 05/31/191805 SAND DRIER: ALVERTO 05/31/191805 RPT#: [id number] DC DATE: STATUS: ADM IN [facility] [address] [place] [address] END OF REPORT
--- NOTE | 2019-05-31 19:13 | NUR ---
OT NOTE: (DOS 05/30/2019) PT COMPLETED SIT TO STAND WITH CGA/KESHA. PT COMPLETED ADL MOB WITH CGA/MIN A. PT COMPLETED UB HYGIENE TASKS AT EOB WITH SETUP. PT REQUIRED VERBAL CUES FOR TASK COMPLETION. PT ABLE TO WASH FACE, HANDS, ARMS, AND TORSO WITH MIN CUES. PT COMPLETED BUE AROM EXS FOR INCREASED AX TOLERANCE. [phone] THANK YOU,GENEVA TIWARI
[2019-05-31 20:00] VITALS: BP 148/90
--- NOTE | 2019-05-31 20:18 | NUR ---
OT NOTE: PT COMPLETED SUPINE TO SIT WITH MIN A. PT COMPLETED SIT TO STAND WITH CGA/MIN A. PT COMPLETED ADL MOB WITH RW REQUIRED CGA. PT REQUIRED VERBAL ENCOURAGEMENT FOR INCREASED PARTICIPATION. PT COMPLETED FACE HYGIENE WITH SBA. PT COMPLETED UE AROM EXS AT EOB. [phone] THANK YOU,GENEVA TIWARI
[2019-06-01 00:30] VITALS: BP 138/92
--- NOTE | 2019-06-01 03:31 | NUR ---
RESTING WITH EYES CLOSED, RESPERATIONS EVEN, NO S/S DISTRESS NOTED.
--- NOTE | 2019-06-01 03:35 | NUR ---
I have reviewed this patient and I concur with the Shift Assessment completed by the Licensed Practical Nurse today this shift.
[2019-06-01 04:00] VITALS: BP 156/114
--- NOTE | 2019-06-01 07:10 | NUR ---
REPORT RECEIVED FROM [employer] DRAFTER AND PATIENT CARE ASSUMED. PATIENT LAYING IN BED ON BACK WITH EYES CLOSED AND BREATHING EVENLY . WILL CONTINUE WITH PLAN OF CARE. SR UP X 2 BED IN LOW POSITION AND CALL LIGHT IN REACH.
--- NOTE | 2019-06-01 08:19 | NUR ---
PATIENT UP TO BR WITH ASSISTANCE AND HAD BM . BACK TO BS CHAIR. PATIENT IS STABLE AND VSS. PATIENT DENIES ANY NEEDS OR PAIN. WILL CONTINUE WITH PLAN OF CARE. SR UP X 2 BED IN LOW POSITION AND CALL LIGHT IN REACH.
[2019-06-01 09:35] VITALS: BP 128/71
[2019-06-01 13:42] VITALS: BP 125/74
--- NOTE | 2019-06-01 17:36 | MORECARE ---
CASE MANAGEMENT DISCHARGE SUMMARY PATIENT: TRIP WITT UNIT: [id number] ADM DATE: 05/26/19 AGE: 83 : 36 SEX: F ROOM/BED: D.9244 AUTHOR: MOE,DOC PHYSICIAN: REFERRING PHYSICIAN: MILE YIP MD DATE OF SERVICE: 06/01/19 Discharge Plan Patient Name: TRIP WITT [facility] [facility] 1935 Planned Disposition: Retirement Facility Anticipated Discharge Date: 05/31/19 Discharge Date: Expected LOS: 5 Initial Reviewer: [id number] Initial Review Date: 05/29/2019 Generated: 06/01/19 6:35 pm Comments DCP- Discharge Planning Updated by [id number]: Jordon Wilson on 05/31/19 5:[address] Patient Name: TRIP WITT Encounter No: [id number] : 1935 Primary Insurance: [place] MEDIC[employer] SOLUTIONS Anticipated DC Date: 05-31-2019 Planned Disposition: Inpatient Rehab External Planned Provider: [facility] DCP follow-up note: CM SPOKE TO STEVEN OF INPATIENT REHAB AT [facility] MEETING WHO INFORMED TEAM THAT INSURANCE HAS DECLINED INPATIENT REHAB. DR. ARTIS STATES HE WILL DO PEER TO PEER WITH INSURANCE FOR RE CONSIDERATION HE FEELS SHE NEEDS INPATIENT REHAB. RN ILIR EDDS INFORMED CM THAT INSURANCE HAS INDICATED TO HER THAT [facility] IS APPROPRIATE FOR PT'S NEEDS. CM CALLED PT'S INSURANCE COMPANY PER DIRECTIONS TO ARRANGE PEER TO PEER, , EXT [phone], LEFT VERY DETAILED MESSAGE FOR NURSE HANSON, REQUESTING PEER TO PEER FOR INPATIENT REHAB DENIAL AND LEFT CM AND DR. ARTIS'S PHONE NUMBERS. CM TO MEET WITH PT TO INFORM OF DENIAL AND WAITING RESULTS OF PEER TO PEER FOR INPATIENT REHAB RECONSIDERATION. Jordon Wilson, CASE MANAGEMENT Appended by Jordon Wilson on 05/31/2019 18:00 CDT: CM MET WITH PT AND SPOUSE IN ROOM INFORMED OF DENIAL BY INSURANCE FOR INPATIENT REHAB. PT AND SPOUSE AGREE THAT PT NEEDS REHAB AND IF PEER TO PEER DOES NOT WORK TO GET PT INTO INPATIENT REHAB HERE, THEY WOULD LIKE REFERRAL TO [facility], CHOICE SIGNED. CM WAITING ON PEER TO PEER WITH INSURANCE BY DR. ARTIS. IF UNSUCCESSFUL, CM WILL SEND REFERRAL TO [facility], [facility] FOR [facility]HAB. JORDON WILSON, CASE MANAGEMENT DCP- Discharge Planning Updated by [id number]: Jordon Wilson on 05/29/19 4:[address] Patient Name: TRIP WITT Admission Status: ER Accout number: [id number] Admission Date: 05-26-2019 : 1935 Admission Diagnosis: Attending: COLIN YIP Current LOS: 3 Anticipated DC Date: 05-30-2019 Planned Disposition: Inpatient Rehab Primary Insurance: [place] [employer] PLANNED EXTERNAL PROVIDER: [facility] IN[facility] RE[facility] Discharge Planning Comments: CM RECEIVED INPATIENT REHAB PRESCREENING AND ORDER FOR NEBULIZER AND NEB MEDICATIONS. CM MET WITH PT IN ROOM TO DISCUSS DISCHARGE PLANNING AND NEEDS. PT REPORTS LIVING AT HOME INDEPENDENTLY WITH HER SPOUSE. PT HAS A CANE WITH NO MEDICAL EQUIPMENT PROVIDER PREFERENCE. PT HAS NO OUTSIDE SERVICES ASSISTING IN THE HOME. CM DISCUSSED AVAILABILITY OF HOME HEALTH, REHAB SERVICES AND MEDICAL EQUIPMENT. CM DISCUSSED AVAILABILITY OF REHAB, PROVIDERS AND LOCATIONS. PT WANTS REHAB AT [place]. IMPORTANT MESSAGE FROM MEDICARE PROVIDED AND EXPLAINED. CHOICE SIGNED FOR [facility] INPATIENT RE[facility]. CM WAITING INSURANCE DETERMINATION FOR INPATIENT REHAB AT [place]. Weight Count Operator: Jordon Wilson DCPIA - Discharge Planning Initial Assessment Updated by [id number]: Jordon Wilson on 05/29/19 5:13 pm * Is the patient Alert and Oriented? Yes * How many steps to enter\exit or inside your home? NONE * PCP DR. LEONE * Pharmacy [facility] * Preadmission Environment Home with Family * ADLs Independent * Equipment Cane * Other Equipment NO MEDICAL EQUIPMENT PROVIDER PREFERENCE * List name and contact numbers for known caregivers / representatives who currently or will assist patient after discharge: HAL WITT, SPOUSE, * Verbal permission to speak to the caregivers and representatives has been obtained from the patient. N/A * Community resources currently utilized None * Please name any agencies selected above. NONE * Additional services required to return to the preadmission environment? Yes * Can the patient safely return to the preadmission environment? Yes * Has this patient been hospitalized within the prior 30 days at any hospital? Yes External [facility]iders [facility] Next Contact Date: 06/01/2019 Service Request Date: Service Type: Resolution: Reviewer: Comments: Coverage Notice Reviewer: JASS Wilson Notice Issued Date-Time: 05/29/2019 16:40 Notice Type: IM Discharge Notice Notice Delivered To: Patient Relationship to Patient: Psychic Reader Name: Delivery Method: HAND - Hand Delivered Tory Days: Prior Verbal Notification: Recipient Understood Notice: Yes Recipient Signature: Yes Med Rec Note Co-signed by Attending: Coverage Notice Comment: Reviewer: JASS Wilson Notice Issued Date-Time: 05/29/2019 16:40 Notice Type: Patient Choice Letter Notice Delivered To: Patient Relationship to Patient: Psychic Reader Name: Delivery Method: HAND - Hand Delivered Tory Days: Prior Verbal Notification: Recipient Understood Notice: Yes Recipient Signature: Yes Med Rec Note Co-signed by Attending: Coverage Notice Comment: [facility] REHAB Reviewer: JASS Wilson Notice Issued Date-Time: 05/31/2019 13:10 Notice Type: Patient Choice Letter Notice Delivered To: Family Member Relationship to Patient: Spouse Psychic Reader Name: HAL WITT Delivery Method: HAND - Hand Delivered Tory Days: Prior Verbal Notification: Recipient Understood Notice: Yes Recipient Signature: Yes Med Rec Note Co-signed by Attending: Coverage Notice Comment: [facility] Last DP export: 05/31/19 5:06 p Patient Name: TRIP WITT Page [phone] at 1736 All edits/amendments must be made on the electronic document DICTATION DATE: 06/01/191734 HOGSHEAD STRIPPER: ALVERTO 06/01/191734 RPT#: [id number] DC DATE: STATUS: ADM IN [facility] [address] [place] [address] END OF REPORT
--- NOTE | 2019-06-01 17:42 | NUR ---
OT NOTE: PT REQUIRED TOTAL A WITH LB HYGIENE TASKS SECONDARY TO INCREASED CONFUSION. PT COMPLETED STATIC SITTING WITH MIN A. PT COMPLETED ADL MOB WITH MOD A . NURSING CAME TO ROOM AND AWARE. PT EXHIBITED INCREASED CONFUSION AND WAS CRYING. [id number] THANK YOU,GENEVA TIWARI
--- NOTE | 2019-06-01 17:53 | MORECARE ---
CASE MANAGEMENT DISCHARGE SUMMARY PATIENT: TRIP WITT UNIT: [id number] ADM DATE: 05/26/19 AGE: 83 : 36 SEX: F ROOM/BED: D.2124 AUTHOR: SAUL ROSA PHYSICIAN: REFERRING PHYSICIAN: MILE YIP MD DATE OF SERVICE: 06/01/19 Discharge Plan Patient Name: TRIP WITT Facility: [facility]:[place] : 1935 Planned Disposition: Halfway Facility Anticipated Discharge Date: 05/31/19 Discharge Date: Expected LOS: 5 Initial Reviewer: [id number] Initial Review Date: 05/29/2019 Generated: 06/01/19 6:52 pm Comments DCP- Discharge Planning Updated by [email or web address]: Jordon Wilson on 06/01/19 4:[address] Patient Name: TRIP WITT Encounter No: [id number] : 1935 Primary Insurance: [facility] MEDICARE SOLUTIONS Anticipated DC Date: 05-31-2019 Planned Disposition: Halfway Facility External Planned Provider: [facility], MEDICARE REHAB BED DCP follow-up note: CM SPOKE TO DR. ARTIS WHO INFORMED CM THAT INSURANCE HAS RECOMMENDED [facility]. CM NOTIFIED PATIENT IN ROOM. CHOICE PREVIOUSLY SIGNED FOR [place]. CM NOTIFIED [facility], , OF REFERRAL. CM FAXED REFERRAL TO [facility] FOR [place] AT [phone]. CM WAITING ADMISSION DETERMINATION FOR REHAB AT [facility] AND RE[facility]AB. Jordon Wilson, MELONY AVILES DCP- Discharge Planning Updated by [id number]: Jordon Wilson on 05/31/19 5:[address] Patient Name: TRIP WITT Encounter No: [id number] : 1935 Primary Insurance: [facility] MEDICARE SOLUTIONS Anticipated DC Date: 05-31-2019 Planned Disposition: Inpatient Rehab External Planned Provider: [facility] INPATIENT REHAB DCP follow-up note: CM SPOKE TO STEVEN OF INPATIENT REHAB AT [facility] MEETING WHO INFORMED TEAM THAT INSURANCE HAS DECLINED INPATIENT REHAB. DR. ARTIS STATES HE WILL DO PEER TO PEER WITH INSURANCE FOR RE CONSIDERATION HE FEELS SHE NEEDS INPATIENT REHAB. RN CM EDDS INFORMED CM THAT INSURANCE HAS INDICATED TO HER THAT [facility] IS APPROPRIATE FOR PT'S NEEDS. CM CALLED PT'S INSURANCE COMPANY PER DIRECTIONS TO ARRANGE PEER TO PEER, , EXT [phone], LEFT VERY DETAILED MESSAGE FOR NURSE MARGIE, REQUESTING PEER TO PEER FOR INPATIENT REHAB DENIAL AND LEFT CM AND DR. ARTIS'S PHONE NUMBERS. CM TO MEET WITH PT TO INFORM OF DENIAL AND WAITING RESULTS OF PEER TO PEER FOR INPATIENT REHAB RECONSIDERATION. Jordon Wilson, CASE MANAGEMENT Appended by Jordon Wislon on 05/31/2019 18:00 CDT: CM MET WITH PT AND SPOUSE IN ROOM INFORMED OF DENIAL BY INSURANCE FOR INPATIENT REHAB. PT AND SPOUSE AGREE THAT PT NEEDS REHAB AND IF PEER TO PEER DOES NOT WORK TO GET PT INTO INPATIENT REHAB HERE, THEY WOULD LIKE [facility], CHOICE SIGNED. CM WAITING ON PEER TO PEER WITH INSURANCE BY DR. ARTIS. IF UNSUCCESSFUL, CM WILL SEND REFERRAL TO [facility] AND [facility] [place] FOR REHAB. JORDON WILSON, CASE MANAGEMENT DCP- Discharge Planning Updated by [id number]: Jordon Wilson on 05/29/19 4:[address] Patient Name: TRIP WITT Admission Status: ER Accout number: [id number] Admission Date: 05-26-2019 : 1935 Admission Diagnosis: Attending: COLIN YIP Current LOS: 3 Anticipated DC Date: 05-30-2019 Planned Disposition: Inpatient Rehab Primary Insurance: [facility] MEDICARE SOLUTIONS PLANNED EXTERNAL PROVIDER: [facility] INPATIENT REHAB Discharge Planning Comments: CM RECEIVED INPATIENT REHAB PRESCREENING AND ORDER FOR NEBULIZER AND NEB MEDICATIONS. CM MET WITH PT IN ROOM TO DISCUSS DISCHARGE PLANNING AND NEEDS. PT REPORTS LIVING AT HOME INDEPENDENTLY WITH HER SPOUSE. PT HAS A CANE WITH NO MEDICAL EQUIPMENT PROVIDER PREFERENCE. PT HAS NO OUTSIDE SERVICES ASSISTING IN THE HOME. CM DISCUSSED AVAILABILITY OF HOME HEALTH, REHAB SERVICES AND MEDICAL EQUIPMENT. CM DISCUSSED AVAILABILITY OF REHAB, PROVIDERS AND LOCATIONS. PT WANTS REHAB AT [place]. IMPORTANT MESSAGE FROM MEDICARE PROVIDED AND EXPLAINED. CHOICE SIGNED FOR [facility] INPATIENT REHAB. CM WAITING INSURANCE DETERMINATION FOR INPATIENT REHAB AT [place]. Spike Maker: Jordon Wilson DCPIA - Discharge Planning Initial Assessment Updated by [id number]: Jordon Wilson on 05/29/19 5:13 pm * Is the patient Alert and Oriented? Yes * How many steps to enter\exit or inside your home? NONE * PCP DR. LEONE * Pharmacy [facility] * Preadmission Environment Home with Family * ADLs Independent * Equipment Cane * Other Equipment NO MEDICAL EQUIPMENT PROVIDER PREFERENCE * List name and contact numbers for known caregivers / representatives who currently or will assist patient after discharge: ED EDUAR, SPOUSE, * Verbal permission to speak to the caregivers and representatives has been obtained from the patient. N/A * Community resources currently utilized None * Please name any agencies selected above. NONE * Additional services required to return to the preadmission environment? Yes * Can the patient safely return to the preadmission environment? Yes * Has this patient been hospitalized within the prior 30 days at any hospital? Yes Coverage Notice Reviewer: [id number] Sravan Wilson Notice Issued Date-Time: 05/29/2019 16:40 Notice Type: IM Discharge Notice Notice Delivered To: Patient Relationship to Patient: Home Health Billing Specialist Name: Delivery Method: HAND - Hand Delivered Tory Days: Prior Verbal Notification: Recipient Understood Notice: Yes Recipient Signature: Yes Med Rec Note Co-signed by Attending: Coverage Notice Comment: Reviewer: [id number] Sravan Wilson Notice Issued Date-Time: 05/29/2019 16:40 Notice Type: Patient Choice Letter Notice Delivered To: Patient Relationship to Patient: Home Health Billing Specialist Name: Delivery Method: HAND - Hand Delivered Tory Days: Prior Verbal Notification: Recipient Understood Notice: Yes Recipient Signature: Yes Med Rec Note Co-signed by Attending: Coverage Notice Comment: [facility] IP REHAB Reviewer: [id number] Sravan Wilson Notice Issued Date-Time: 05/31/2019 13:10 Notice Type: Patient Choice Letter Notice Delivered To: Family Member Relationship to Patient: Spouse Home Health Billing Specialist Name: HAL WITT Delivery Method: HAND - Hand Delivered Tory Days: Prior Verbal Notification: Recipient Understood Notice: Yes Recipient Signature: Yes Med Rec Note Co-signed by Attending: Coverage Notice Comment: [facility] Last DP export: 06/01/19 4:36 p Patient Name: TRIP WITT Page 32725 at 1753 All edits/amendments must be made on the electronic document DICTATION DATE: 06/01/191751 RAILROAD MECHANIC: ALVERTO 06/01/191751 RPT#: [id number] DC DATE: STATUS: ADM IN [facility] [address] [facility] [place] [address] END OF REPORT
--- NOTE | 2019-06-01 18:00 | MORECARE ---
CASE MANAGEMENT DISCHARGE SUMMARY PATIENT: TRIP WITT UNIT: [id number] ADM DATE: 05/26/19 AGE: 83 : 36 SEX: F ROOM/BED: D.4984 AUTHOR: SAUL ROSA PHYSICIAN: REFERRING PHYSICIAN: MILE YIP MD DATE OF SERVICE: 06/01/19 Discharge Plan Patient Name: TRIP WITT Facility: [facility] : 1935 Planned Disposition: Penitentiary Facility Anticipated Discharge Date: 05/31/19 Discharge Date: Expected LOS: 5 Initial Reviewer: [id number] Initial Review Date: 05/29/2019 Generated: 06/01/19 7:00 pm Comments DCP- Discharge Planning Updated by [email or web address]: Jordon Goodman on 06/01/19 4:[address] Patient Name: TRIP WITT Encounter No: [id number] : 1935 Primary Insurance: [facility] MEDICARE SOLUTIONS Anticipated DC Date: 05-31-2019 Planned Disposition: Penitentiary Facility External Planned Provider: [facility], MEDICARE REHAB BED DCP follow-up note: CM SPOKE TO DR. ARTIS WHO INFORMED CM THAT INSURANCE HAS RECOMMENDED GROUP HOME. CM NOTIFIED PATIENT IN ROOM. CHOICE PREVIOUSLY SIGNED FOR [place]. CM NOTIFIED SAEID MCGEE OF [facility], , OF REFERRAL. CM FAXED REFERRAL TO SAEID FOR [place] AT [phone]. CM WAITING ADMISSION DETERMINATION FOR REHAB AT [facility]. Jordon Goodman, CASE MANAGEMENT Appended by Jordon Goodman on 06/01/2019 17:58 CDT: ILIR SPOKE TO KAMRAN OF [employer]ULT [employer] [employer], , AT NURSES STATION. SHE IS WORKING A REFERRAL REGARDING PT AND HER SPOUSE; THERE IS NO HOLD BY ADULT [facility]OTECTIVE SERVICES, KAMRAN WILL CONTINUE TO FOLLOW UP WITH THEM AFTER DISHCARGE. ILIR PROVIDED KAMRAN WITH MEDICAL RECORDS REQUEST. ILIR CONTINUES TO WAIT ADMISSION DETERMINATION FROM [facility]. MELONY GASPAR DCP- Discharge Planning Updated by [id number]: Jordon Goodman on 05/31/19 5:[address] Patient Name: TRIP WITT Encounter No: [id number] : 1935 Primary Insurance: [facility] MEDICARE SOLUTIONS Anticipated DC Date: 05-31-2019 Planned Disposition: Inpatient Rehab External Planned Provider: [facility] INPATIENT REHAB DCP follow-up note: CM SPOKE TO STEVEN OF INPATIENT REHAB AT [facility] [place] MEETING WHO INFORMED TEAM THAT INSURANCE HAS DECLINED INPATIENT REHAB. DR. ARTIS STATES HE WILL DO PEER TO PEER WITH INSURANCE FOR RE CONSIDERATION HE FEELS SHE NEEDS INPATIENT REHAB. RN ILIR EDDS INFORMED CM THAT INSURANCE HAS INDICATED TO HER THAT GROUP HOME IS APPROPRIATE FOR PT'S NEEDS. CM CALLED PT'S INSURANCE COMPANY PER DIRECTIONS TO ARRANGE PEER [place] PEER, , EXT [phone], LEFT VERY DETAILED MESSAGE FOR NURSE MARGIE, REQUESTING PEER TO PEER FOR INPATIENT REHAB DENIAL AND LEFT CM AND DR. ARTIS'S PHONE NUMBERS. CM TO MEET WITH PT TO INFORM OF DENIAL AND WAITING RESULTS OF PEER TO PEER FOR INPATIENT REHAB RECONSIDERATION. Jordon Goodman, CASE MANAGEMENT Appended by Jordon Goodman on 05/31/2019 18:00 CDT: CM MET WITH PT AND SPOUSE IN ROOM INFORMED OF DENIAL BY INSURANCE FOR INPATIENT REHAB. PT AND SPOUSE AGREE THAT PT NEEDS REHAB AND IF PEER TO PEER DOES NOT WORK TO GET PT INTO INPATIENT REHAB HERE, THEY WOULD LIKE REFERRAL TO [facility] AND [facility], CHOICE SIGNED. CM WAITING ON PEER TO PEER WITH INSURANCE BY DR. ARTIS. IF UNSUCCESSFUL, CM WILL SEND REFERRAL TO [facility] AND [facility] FOR REHAB. MELONY GASPAR MANAGEMENT DCP- Discharge Planning Updated by [id number]: Jordon Goodman on 05/29/19 4:[address] Patient Name: TRIP WITT Admission Status: ER Accout number: [id number] Admission Date: 05-26-2019 : 1935 Admission Diagnosis: Attending: COLIN YIP Current LOS: 3 Anticipated DC Date: 05-30-2019 Planned Disposition: Inpatient Rehab Primary Insurance: [facility] MEDICARE SOLUTIONS PLANNED EXTERNAL PROVIDER: [facility] INPATIENT REHAB Discharge Planning Comments: CM RECEIVED INPATIENT REHAB PRESCREENING AND ORDER FOR NEBULIZER AND NEB MEDICATIONS. CM MET WITH PT IN ROOM TO DISCUSS DISCHARGE PLANNING AND NEEDS. PT REPORTS LIVING AT HOME INDEPENDENTLY WITH HER SPOUSE. PT HAS A CANE WITH NO MEDICAL EQUIPMENT PROVIDER PREFERENCE. PT HAS NO OUTSIDE SERVICES ASSISTING IN THE HOME. CM DISCUSSED AVAILABILITY OF HOME HEALTH, REHAB SERVICES AND MEDICAL EQUIPMENT. CM DISCUSSED AVAILABILITY OF REHAB, PROVIDERS AND LOCATIONS. PT WANTS REHAB AT [facility]. IMPORTANT MESSAGE FROM MEDICARE PROVIDED AND EXPLAINED. CHOICE SIGNED FOR [facility] INPATIENT REHAB. CM WAITING INSURANCE DETERMINATION FOR INPATIENT REHAB AT [facility]. Debt Management Counselor: Jordon Goodman DCPIA - Discharge Planning Initial Assessment Updated by JASS: Jordon Goodman on 05/29/19 5:13 pm * Is the patient Alert and Oriented? Yes * How many steps to enter\exit or inside your home? NONE * PCP DR. LEONE * Pharmacy [facility] * Preadmission Environment Home with Family * ADLs Independent * Equipment Cane * Other Equipment NO MEDICAL EQUIPMENT PROVIDER PREFERENCE * List name and contact numbers for known caregivers / representatives who currently or will assist patient after discharge: HAL WITT, SPOUSE, * Verbal permission to speak to the caregivers and representatives has been obtained from the patient. N/A * Community resources currently utilized None * Please name any agencies selected above. NONE * Additional services required to return to the preadmission environment? Yes * Can the patient safely return to the preadmission environment? Yes * Has this patient been hospitalized within the prior 30 days at any hospital? Yes Coverage Notice Reviewer: [id number] Goodman Notice Issued Date-Time: 05/29/2019 16:40 Notice Type: IM Discharge Notice Notice Delivered To: Patient Relationship to Patient: Cemetery Worker Name: Delivery Method: HAND - Hand Delivered Tory Days: Prior Verbal Notification: Recipient Understood Notice: Yes Recipient Signature: Yes Med Rec Note Co-signed by Attending: Coverage Notice Comment: Reviewer: [id number] Goodman Notice Issued Date-Time: 05/29/2019 16:40 Notice Type: Patient Choice Letter Notice Delivered To: Patient Relationship to Patient: Cemetery Worker Name: Delivery Method: HAND - Hand Delivered Tory Days: Prior Verbal Notification: Recipient Understood Notice: Yes Recipient Signature: Yes Med Rec Note Co-signed by Attending: Coverage Notice Comment: [facility] IP REHAB Reviewer: [id number] Goodman Notice Issued Date-Time: 05/31/2019 13:10 Notice Type: Patient Choice Letter Notice Delivered To: Family Member Relationship to Patient: Spouse Cemetery Worker Name: HAL WITT Delivery Method: HAND - Hand Delivered Tory Days: Prior Verbal Notification: Recipient Understood Notice: Yes Recipient Signature: Yes Med Rec Note Co-signed by Attending: Coverage Notice Comment: [facility] Last DP export: 06/01/19 4:53 p Patient Name: TRIP WITT Page [id number] at 1800 All edits/amendments must be made on the electronic document DICTATION DATE: 06/01/19 1800 SHARED SERVICES REPRESENTATIVE: ALVERTO 06/01/19 1800 RPT#: [id number] DC DATE: STATUS: ADM IN [facility] [address] [place] [address] END OF REPORT
[2019-06-01 18:32] VITALS: BP 126/61
--- NOTE | 2019-06-01 19:05 | NUR ---
DR ARTIS ON UNIT, ORDERS GIVEN TO GET SURGERY CONSULT STAT, STATED THAT PT HAS A PERF BOWEL, FREE AIR IN ABD. PAGE OUT TO SURGERY THROUGH ANSWERING SERVICE.
[2019-06-01 20:00] VITALS: BP 160/75
[2019-06-02] VITALS: BP 129/68
--- NOTE | 2019-06-02 03:04 | NUR ---
I have reviewed this patient and I concur with the Shift Assessment completed by the Licensed Practical Nurse today this shift.
[2019-06-02 04:00] VITALS: BP 93/63
[2019-06-02 06:35] LABS: BASOPHILS 0.1 % (0-2); EOSINOPHILS 0.1 % (0-7); HEMATOCRIT 33.4 % (36.0-48.0); HEMOGLOBIN 11.2 g/dL (12-16); IMMATURE GRANULOCYTES 0.3 % (0-5); LYMPHOCYTES 4.9 % (15-50); MCH 31.9 pg (26.0-34.0); MCHC 33.5 g/dL (31.0-37.0); MCV 95.2 fL (80.0-100.0); MEAN PLATELET VOLUME 9.7 fL (7.4-10.4); MONOCYTES 10.9 % (2-11); NEUTROPHILS 83.7 % (40-80); PLATELET COUNT 242 10x3/uL (130-400); RBC 3.51 10x6/uL (4.00-5.40); RDW 14.9 % (11.5-14.5)
[2019-06-02 06:42] LABS: WBC 16.5 10x3/uL (4.8-10.8)
[2019-06-02 06:56] LABS: ANION GAP 13.8 mmol/L (8-16); CALCIUM 7.9 mg/dL (8.5-10.1); CARBON DIOXIDE 23.9 mmol/L (21.0-32.0); CREATININE - SERUM 1.8 mg/dL (0.6-1.3); POTASSIUM - SERUM 3.7 mmol/L (3.5-5.1)
--- NOTE | 2019-06-02 07:15 | NUR ---
RESTING QUIETLY EYES CLOSED RESP UNLABORED SKIN W/D COLOR WNL NAD NOTED WILL CONT TO MONITOR
[2019-06-02 09:10] VITALS: BP 137/73
--- NOTE | 2019-06-02 12:12 | NUR ---
Nutrition Follow-up: Pt reports not eating very well. Ate ~50% of breakfast this AM. Agreed to try Ensure at lunch today. Diet: Cardiac Wt: 206# (05/31); 200# (05/25) Last BM: 05/31 Labs noted: Na 133, Ca 7.9 Meds noted: Protonix, Pepcid, NS @ 75 -Ensure sent with lunch today for pt trial. -Encourage PO intake and honor food preferences within diet restrictions. -Monitor wt; noted daily wts ordered. -RD following.
[2019-06-02 12:54] VITALS: BP 112/56
[2019-06-02 17:50] VITALS: BP 129/66
--- NOTE | 2019-06-02 18:52 | NUR ---
OT NOTE: PT COMPLETED SUPINE TO SIT WITH MIN A. PT COMPLETED ADL MOB WITH RW REQUIRED CGA. PT WAS IS LABILE. NURISNG AWARE AND NOTIFIED. AT BEDSIDE. [phone] THANK YOU,GENEVA TIWARI
--- NOTE | 2019-06-02 19:15 | NUR ---
RECEIVED REPORT, WILL ASSUME CARE OF PT, PT IS ASKING IF HER DAUGHTER IS A LIVE, EXPLAIN SHE IS IN HOSPTAL AND THERE IS NO FAMILY HERE, BED IS LOW, SRX2, CALL LIGHT IN REACH, WILL CONTINUE PLAN OF CARE
[2019-06-02 20:30] VITALS: BP 157/77
[2019-06-03 00:30] VITALS: BP 130/70
--- NOTE | 2019-06-03 02:00 | NUR ---
I have reviewed this patient and I concur with the Shift Assessment completed by the Licensed Practical Nurse today this shift.
[2019-06-03 04:30] VITALS: BP 131/65
[2019-06-03 07:09] LABS: BASOPHILS 0.1 % (0-2); EOSINOPHILS 0.6 % (0-7); HEMATOCRIT 34.2 % (36.0-48.0); HEMOGLOBIN 11.5 g/dL (12-16); IMMATURE GRANULOCYTES 0.3 % (0-5); LYMPHOCYTES 6.1 % (15-50); MCHC 33.6 g/dL (31.0-37.0); MCV 95.3 fL (80.0-100.0); MEAN PLATELET VOLUME 9.8 fL (7.4-10.4); MONOCYTES 13.2 % (2-11); NEUTROPHILS 79.7 % (40-80); PLATELET COUNT 232 10x3/uL (130-400); RBC 3.59 10x6/uL (4.00-5.40); RDW 14.8 % (11.5-14.5); WBC 15.2 10x3/uL (4.8-10.8)
[2019-06-03 07:12] LABS: ANION GAP 13.9 mmol/L (8-16); CALCIUM 8.3 mg/dL (8.5-10.1); CARBON DIOXIDE 21.6 mmol/L (21.0-32.0); CREATININE - SERUM 1.6 mg/dL (0.6-1.3); POTASSIUM - SERUM 3.5 mmol/L (3.5-5.1)
[2019-06-03 08:58] VITALS: BP 126/68
--- NOTE | 2019-06-03 09:44 | NUR ---
AM MEDS GIVEN AT THIS TIME. PT RESTING COMFORTABLY IN BED, DENIES ANY NEEDS AT THIS TIME. CALL LIGHT IN REACH, NAD NOTED,W ILL CONTINUE TO MONITOR.
[2019-06-03 12:20] VITALS: BP 115/61
--- NOTE | 2019-06-03 14:31 | NUR ---
CLEANED PT UP FROM INCONT EPISODE. PT DENIES ANY OTHER NEEDS AT THIS TIME. ALL LIGHT IN REACH, NAD NOTED,W ILL CONTINUE TO MONITOR.
[2019-06-03 17:56] VITALS: BP 132/71
--- NOTE | 2019-06-03 18:16 | NUR ---
PT ONLY URINATED ONCE IN THE BEDSIDE COMMODE AND IT WAS FLUSHED DOWN TOILET BY LOCOMOTIVE CRANE OPERATOR. THEN AFTER, PT HAD INCONT EPISODE OF BM AND URINE, PT REFUSED TO HAVE AN IN AND OUT CATH. WILL PASS ON IN REPORT TO FISHING VESSEL MATE NURSE OF NEED FOR URINE SAMPLE.
--- NOTE | 2019-06-03 19:15 | NUR ---
RECEIVED REPORT, WILL ASSUME CARE OF PT, ASKING IF HER IS HER, EXPLAIN HE WENT HOME FOR THE NIGHT, BED IS LOW, SRX2, CALL LIGHT IN REACH, BED ALARM IS ON, WILL CONTINUE PLAN OF CARE
[2019-06-03 20:00] VITALS: BP 150/82
[2019-06-04] VITALS: BP 138/80
[2019-06-04 04:00] VITALS: BP 150/81
--- NOTE | 2019-06-04 05:43 | NUR ---
I have reviewed this patient and I concur with the Shift Assessment completed by the Licensed Practical Nurse today this shift.
--- NOTE | 2019-06-04 06:13 | NUR ---
UNABLE TO COLLECT UA-PT INCONT.
[2019-06-04 06:27] LABS: ANION GAP 18.3 mmol/L (8-16); CALCIUM 7.8 mg/dL (8.5-10.1); CARBON DIOXIDE 18.4 mmol/L (21.0-32.0); CREATININE - SERUM 1.6 mg/dL (0.6-1.3); POTASSIUM - SERUM 3.7 mmol/L (3.5-5.1)
[2019-06-04 06:45] LABS: BASOPHILS 0.2 % (0-2); EOSINOPHILS 1.4 % (0-7); HEMATOCRIT 35.4 % (36.0-48.0); HEMOGLOBIN 11.9 g/dL (12-16); IMMATURE GRANULOCYTES 0.3 % (0-5); LYMPHOCYTES 7.3 % (15-50); MCH 32.1 pg (26.0-34.0); MCHC 33.6 g/dL (31.0-37.0); MCV 95.4 fL (80.0-100.0); MEAN PLATELET VOLUME 10.2 fL (7.4-10.4); MONOCYTES 17.1 % (2-11); NEUTROPHILS 73.7 % (40-80); PLATELET COUNT 204 10x3/uL (130-400); RBC 3.71 10x6/uL (4.00-5.40); WBC 11.7 10x3/uL (4.8-10.8)
--- NOTE | 2019-06-04 08:27 | NUR ---
BMX1. PT CLEANED. LINENS CHANGED. POSITIONED TO COMFORT. SITTING HIGH FOWLERS IN BED. ASSISTED WITH BREAKFAST. DENIES NEEDS OR PAIN AT THIS TIME HOWEVER PT IS TEARFUL. CALL LIGHT WITHIN REACH. BED IN LOWEST POSITION. WILL CONTINUE TO MONITOR.
--- NOTE | 2019-06-04 08:54 | NUR ---
PT HOOKED BACK UP TO LUIS ALFREDO. SUCTION ON AND FUNCTIONING PROPERLY. AT BEDSIDE. PT RECIEVED WARM BLANKET. CALL LIGHT WITHIN REACH. WILL CONTINUE TO MONITOR.
[2019-06-04 10:00] VITALS: BP 145/99
[2019-06-04 12:20] VITALS: BP 123/66
--- NOTE | 2019-06-04 13:54 | NUR ---
I have reviewed this patient and I concur with the Shift Assessment completed by the Licensed Practical Nurse today this shift.
[2019-06-04 16:37] VITALS: BP 115/70
--- NOTE | 2019-06-04 19:08 | NUR ---
IV TO LEFT FOREARM INFILTRATED. D/C WITH CATHETER TIP INTACT. RESITED TO LEFT UPPER ARM 22G X1 ATTEMPT.
--- NOTE | 2019-06-04 19:15 | NUR ---
RECEIVED REPORT, WILL ASSUME CARE OF PT, RESTING, NO DISTRESS NOTICED AT THIS TIME, BED IS LOW, SRX2, CALL LIGHT IN REACH, BED ALARM IS ON, WILL CONTINUE PLAN OF CARE
[2019-06-04 20:00] VITALS: BP 145/78
[2019-06-05 00:15] VITALS: BP 139/70
[2019-06-05 04:00] VITALS: BP 137/65
--- NOTE | 2019-06-05 05:11 | NUR ---
I have reviewed this patient and I concur with the Shift Assessment completed by the Licensed Practical Nurse today this shift.
[2019-06-05 05:17] LABS: ANION GAP 11.7 mmol/L (8-16); CALCIUM 8.1 mg/dL (8.5-10.1); CREATININE - SERUM 1.4 mg/dL (0.6-1.3); POTASSIUM - SERUM 3.7 mmol/L (3.5-5.1)
[2019-06-05 06:32] LABS: HEMATOCRIT 34.4 % (36.0-48.0); HEMOGLOBIN 11.8 g/dL (12-16); MCH 32.1 pg (26.0-34.0); MCHC 34.3 g/dL (31.0-37.0); MCV 93.5 fL (80.0-100.0); MEAN PLATELET VOLUME 10.1 fL (7.4-10.4); RBC 3.68 10x6/uL (4.00-5.40); RDW 14.8 % (11.5-14.5)
[2019-06-05 06:33] LABS: PLATELET COUNT 291 10x3/uL (130-400); WBC 6.9 10x3/uL (4.8-10.8)
[2019-06-05 08:08] VITALS: BP 138/81
[2019-06-05 10:03] LABS: BILIRUBIN NEGATIVE (NEGATIVE); GLUCOSE NEGATIVE (NEGATIVE); KETONE NEGATIVE (NEGATIVE); NITRITE NEGATIVE (NEGATIVE); UROBILINOGEN NORMAL (NORMAL)
[2019-06-05 10:04] LABS: BACTERIA MODERATE /hpf (NEGATIVE); EPITHELIAL CELLS RARE /hpf (0-5); RED CELLS - URINE NONE SEEN /hpf (0-5); WHITE CELLS - URINE RARE /hpf (NEGATIVE)
[2019-06-05 10:05] LABS: AMORPHOUS SEDIMENT >1+ /lpf (NONE SEEN); TRIPLE PHOSPHATE CRYSTALS OCC /hpf (NONE SEEN)
[2019-06-05 10:31] LABS: EOSINOPHILS 1 % (0-7); LYMPHOCYTES 20 % (15-50); MONOCYTES 16 % (2-11); NEUTROPHILS 54 % (40-80)
[2019-06-05 10:32] LABS: CRENATED CELLS OCC; PLATELET ESTIMATE NORMAL; ROULEAUX OCC
--- NOTE | 2019-06-05 10:58 | MORECARE ---
CASE MANAGEMENT DISCHARGE SUMMARY PATIENT: TRIP WITT UNIT: [id number] ADM DATE: 05/26/19 AGE: 83 : 36 SEX: F ROOM/BED: D.7204 AUTHOR: MOE,DOC PHYSICIAN: REFERRING PHYSICIAN: MILE YIP MD DATE OF SERVICE: 06/05/19 Discharge Plan Patient Name: TRIP WITT Facility: [facility]:[place] : 1935 Planned Disposition: [facility] Facility Anticipated Discharge Date: 05/31/19 Discharge Date: Expected LOS: 5 Initial Reviewer: [id number] Initial Review Date: 05/29/2019 Generated: 06/05/19 11:58 am Comments DCP- Discharge Planning Updated by [id number]: Jordon Goodman on 06/05/19 9:[address] Patient Name: TRIP WITT Encounter No: [id number] : 1935 Primary Insurance: [facility] MEDICARE SOLUTIONS Anticipated DC Date: 05-31-2019 Planned Disposition: [facility] Facility External Planned Provider: [facility], MEDICARE REHAB BED DCP follow-up note: CM FAXED REFERRAL [place] TO [facility] AT [phone]. CM CONTINUES TO WAIT ADMISSION DETERMINATION AND INSURANCE AUTHORIZATION FROM [facility]. MELONY GASPAR DCP- Discharge Planning Updated by [id number]: Jordon Goodman on 06/01/19 4:[address] Patient Name: TRIP WITT Encounter No: [id number] : 1935 Primary Insurance: [facility] MEDICARE SOLUTIONS Anticipated DC Date: 05-31-2019 Planned Disposition: [facility] Facility External Planned Provider: [facility], MEDICARE REHAB BED DCP follow-up note: CM SPOKE TO DR. ARTIS WHO INFORMED CM THAT INSURANCE HAS RECOMMENDED NURSING HOME. CM NOTIFIED PATIENT IN ROOM. CHOICE PREVIOUSLY SIGNED FOR [facility]. CM NOTIFIED SAEIDManjeet MCGEE OF [facility], , OF REFERRAL. CM FAXED REFERRAL TO [facility] AT [phone]. CM WAITING ADMISSION DETERMINATION FOR REHAB AT [facility]. Jordon Goodman, CASE MANAGEMENT Appended by Jordon Goodman on 06/01/2019 17:58 CDT: CM SPOKE TO KAMRAN OF ADULT PROTECTIVE SERVICES, , AT NURSES STATION. SHE IS WORKING A REFERRAL REGARDING PT AND HER SPOUSE; THERE IS NO HOLD BY ADULT PROTECTIVE SERVICES, KAMRAN WILL CONTINUE TO FOLLOW UP WITH THEM AFTER DISHCARGE. CM PROVIDED KAMRAN WITH MEDICAL RECORDS REQUEST. CM CONTINUES TO WAIT ADMISSION DETERMINATION FROM [facility] AND REH[facility]. MELONY GASPAR MANAGEMENT DCP- Discharge Planning Updated by [id number]: Jordon Goodman on 05/31/19 5:[address] Patient Name: TRIP IWTT Encounter No: [id number] : 1935 Primary Insurance: [facility] MEDICARE SOLUTIONS Anticipated DC Date: 05-31-2019 Planned Disposition: Inpatient Rehab External Planned Provider: [facility] INPATIENT REH[facility] DCP follow-up note: CM SPOKE TO STEVEN OF INPATIENT REHAB AT [facility] MEETING WHO INFORMED TEAM THAT INSURANCE HAS DECLINED INPATIENT REHAB. DR. ARTIS STATES HE WILL DO PEER TO PEER WITH INSURANCE FOR RE CONSIDERATION HE FEELS SHE NEEDS INPATIENT REHAB. RN ILIR EDDS INFORMED CM THAT INSURANCE HAS INDICATED TO HER THAT NURSING HOME IS APPROPRIATE FOR PT'S NEEDS. CM CALLED PT'S INSURANCE COMPANY PER DIRECTIONS TO ARRANGE PEER TO PEER, , EXT [phone], LEFT VERY DETAILED MESSAGE FOR NURSE HANSON, REQUESTING PEER TO PEER FOR INPATIENT REHAB DENIAL AND LEFT CM AND DR. ARTIS'S PHONE NUMBERS. CM TO MEET WITH PT TO INFORM OF DENIAL AND WAITING RESULTS OF PEER TO PEER FOR INPATIENT REHAB RECONSIDERATION. Jordon Goodman, CASE MANAGEMENT Appended by Jordon Goodman on 05/31/2019 18:00 CDT: CM MET WITH PT AND SPOUSE IN ROOM INFORMED OF DENIAL BY INSURANCE FOR INPATIENT REHAB. PT AND SPOUSE AGREE THAT PT NEEDS REHAB AND IF PEER TO PEER DOES NOT WORK TO GET PT INTO INPATIENT REHAB HERE, [facility], CHO[facility] SIGNED. CM WAITING ON PEER TO PEER WITH INSURANCE BY DR. ARTIS. IF UNSUCCESSFUL, CM WILL SEND REFERRAL TO [facility] AND [facility], NURSING HOME FOR REHAB. MELONY GASPAR DCP- Discharge Planning Updated by [id number]: Jordon Goodman on 05/29/19 4:[address] Patient Name: TRIP WITT Admission Status: ER Accout number: [id number] Admission Date: 05-26-2019 : 1935 Admission Diagnosis: Attending: COLIN YIP Current LOS: 3 Anticipated DC Date: 05-30-2019 Planned Disposition: Inpatient Rehab Primary Insurance: [facility] MEDICARE SOLUTIONS PLANNED EXTERNAL PROVIDER: [facility] INPATIENT REHAB Discharge Planning Comments: CM RECEIVED INPATIENT REHAB PRESCREENING AND ORDER FOR NEBULIZER AND NEB MEDICATIONS. CM MET WITH PT IN ROOM TO DISCUSS DISCHARGE PLANNING AND NEEDS. PT REPORTS LIVING AT HOME INDEPENDENTLY WITH HER SPOUSE. PT HAS A CANE WITH NO MEDICAL EQUIPMENT PROVIDER PREFERENCE. PT HAS NO OUTSIDE SERVICES ASSISTING IN THE HOME. CM DISCUSSED AVAILABILITY OF HOME HEALTH, REHAB SERVICES AND MEDICAL EQUIPMENT. CM DISCUSSED AVAILABILITY OF REHAB, PROVIDERS AND LOCATIONS. PT WANTS REHAB AT [place]. IMPORTANT MESSAGE FROM MEDICARE PROVIDED AND EXPLAINED. CHOICE SIGNED FOR [facility] INPATIENT REH[facility]. CM WAITING INSURANCE DETERMINATION FOR INPATIENT REHAB AT [facility]. Chain Builder Loom Control: Jordon Goodman DCPIA - Discharge Planning Initial Assessment Updated by [id number]: Jordon Goodman on 05/29/19 5:13 pm * Is the patient Alert and Oriented? Yes * How many steps to enter\exit or inside your home? NONE * PCP DR. LEONE * Pharmacy [facility] * Preadmission Environment Home with Family * ADLs Independent * Equipment Cane * Other Equipment NO MEDICAL EQUIPMENT PROVIDER PREFERENCE * List name and contact numbers for known caregivers / representatives who currently or will assist patient after discharge: HAL WITT, SPOUSE, * Verbal permission to speak to the caregivers and representatives has been obtained from the patient. N/A * Community resources currently utilized None * Please name any agencies selected above. NONE * Additional services required to return to the preadmission environment? Yes * Can the patient safely return to the preadmission environment? Yes * Has this patient been hospitalized within the prior 30 days at any hospital? 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 Name: Delivery Method: HAND - Hand Delivered Tory Days: Prior Verbal Notification: Recipient Understood Notice: Yes Recipient Signature: Yes Med Rec Note Co-signed by Attending: Coverage Notice Comment: [facility] IP REHAB Reviewer: [id number] Goodman Notice Issued Date-Time: 05/31/2019 13:10 Notice Type: Patient Choice Letter Notice Delivered To: Family Member Relationship to Patient: Spouse Middle School Football Coach Name: HAL WITT Delivery Method: HAND - Hand Delivered Tory Days: Prior Verbal Notification: Recipient Understood Notice: Yes Recipient Signature: Yes Med Rec Note Co-signed by Attending: Coverage Notice Comment: [facility] Last DP export: 06/01/19 5:00 p Patient Name: TRIP WITT Page 17874 at 1058 All edits/amendments must be made on the electronic document DICTATION DATE: 06/05/19 1058 FAST FOOD MANAGER: ALVERTO 06/05/19 1058 RPT#: [id number] DC DATE: STATUS: ADM IN [facility] [address] [place] [address] END OF REPORT
[2019-06-05 11:00] VITALS: BP 133/57
--- NOTE | 2019-06-05 13:50 | NUR ---
CLEANED PT UP FROM INCONT EPISODE. COMPLETE LINEN CHANGE DONE AT THIS TIME. PT DENIES ANY NEEDS AT THIS TIME. CALL LIGHT IN REACH, NAD NOTED, WILL CONTINUE TO MONITOR.
--- NOTE | 2019-06-05 15:15 | MORECARE ---
CASE MANAGEMENT DISCHARGE SUMMARY PATIENT: TRIP WITT UNIT: [id number] ADM DATE: 05/26/19 AGE: 83 : 36 SEX: F ROOM/BED: D.8824 AUTHOR: MOE,DOC PHYSICIAN: REFERRING PHYSICIAN: MILE YIP MD DATE OF SERVICE: 06/05/19 Discharge Plan Patient Name: TRIP WITT Facility: [facility]:[place] : 1935 Planned Disposition: Group Home Facility Anticipated Discharge Date: 06/06/19 Discharge Date: Expected LOS: 11 Initial Reviewer: [id number] Initial Review Date: 05/29/2019 Generated: 06/05/19 4:15 pm DCP- Discharge Planning Updated by [id number]: Jordon Wilson on 06/05/19 2:[address] Patient Name: TRIP WITT Encounter No: [id number] : 1935 Primary Insurance: [employer] MEDICARE SOLUTIONS Anticipated DC Date: 05-31-2019 Planned Disposition: Group Home Facility External Planned Provider: TO BE DETERMINED DCP follow-up note: CM RECEIVED MESSAGE FROM [employer] [employer], PT IS OUT OF INSURANCE NETWORK FOR [facility] AND [facility]; OUT OF NETWORK WOULD COST PT $175 PER DAY FOR THE FIRST 20 DAYS OF REHAB. IN NETWORK PROVIDERS ARE [facility] AND [facility]. CM SPOKE TO PT IN ROOM WHO DOES NOT WANT TO GO TO OUT OF NETWORK FACILITY, DIRECTED CM TO SPEAK TO HER SPOUSE. SPOUSE NOT PRESENT. CM CALLED HAL WITT AT HOME, , MULTIPLE TIMES; THERE WAS NO ANSWER AND NO ANSWERING MACHINE TO LEAVE A MESSAGE. CM ASKED BEDSIDE NURSE TO NOTIFY CM IF AND WHEN PT'S SPOUSE ARRIVES. CM WILL CONTINUE TO ATTEMPT TO LOCATE PT'S SPOUSE, HAL WITT, TO DISCUSS REHAB AT IN NETWORK ASSISTED FACILITY, [facility] OR [facility]. Jordon Wilson, CASE MANAGEMENT DCP- Discharge Planning Updated by [id number]: Jordon Wilson on 06/05/19 9:[address] Patient Name: TRIP WITT Encounter No: [id number] : 1935 Primary Insurance: [employer] MEDICARE SOLUTIONS Anticipated DC Date: 05-31-2019 Planned Disposition: Group Home Facility External Planned Provider: [facility], MEDICARE REHAB BED DCP follow-up note: CM FAXED REFERRAL UDPATE TO [facility] AT [phone]. CM CONTINUES TO WAIT ADMISSION DETERMINATION AND INSURANCE AUTHORIZATION FROM [facility]. MELONY GASPAR MANAGEMENT DCP- Discharge Planning Updated by [id number]: Jordon Wilson on 06/01/19 4:[address] Patient Name: TRIP WITT Encounter No: [id number] : 1935 Primary Insurance: [place] MED[employer] SOL[employer]IONS Anticipated DC Date: 05-31-2019 Planned Disposition: Group Home Facility External Planned Provider: [facility], MEDICARE REHAB BED DCP follow-up note: CM SPOKE TO DR. ARTIS WHO INFORMED CM THAT INSURANCE HAS RECOMMENDED ASSISTED. CM NOTIFIED PATIENT IN ROOM. CHOICE PREVIOUSLY SIGNED FOR [place]. CM NOTIFIED [facility] [employer] [employer], , OF REFERRAL. CM FAXED REFERRAL TO [facility] AT [phone]. CM WAITING ADMISSION DETERMINATION FOR REHAB AT [facility]. Jordon Wilson, CASE MANAGEMENT Appended by Jordon Wilson on 06/01/2019 17:58 CDT: CM SPOKE TO KAMRAN OF ADULT PROTECTIVE SERVICES, , AT [employer] ST[employer]. SHE IS WORKING A REFERRAL REGARDING PT AND HER SPOUSE; THERE IS NO HOLD BY ADULT PROTECTIVE SERVICES, KAMRAN WILL CONTINUE TO FOLLOW UP WITH THEM AFTER DISHCARGE. CM PROVIDED KAMRAN WITH MEDICAL RECORDS REQUEST. CM CONTINUES TO WAIT ADMISSION DETERMINATION FROM [facility]. MELONY GASPAR MANAGEMENT DCP- Discharge Planning Updated by [id number]: Jordon Wilson on 05/31/19 5:[address] Patient Name: TRIP WITT Encounter No: [id number] : 1935 Primary Insurance: [place] [employer] Anticipated DC Date: 05-31-2019 Planned Disposition: Inpatient Rehab External Planned Provider: [facility] INPATIENT REH[facility] DCP follow-up note: CM SPOKE TO STEVEN OF INPATIENT REHAB AT [facility] MEETING WHO INFORMED TEAM THAT INSURANCE HAS DECLINED INPATIENT REHAB. DR. ARTIS STATES HE WILL DO PEER TO PEER WITH INSURANCE FOR RE CONSIDERATION HE FEELS SHE NEEDS INPATIENT REHAB. RN CM EDDS INFORMED CM THAT INSURANCE HAS INDICATED TO HER THAT ASSISTED IS APPROPRIATE FOR PT'S NEEDS. CM CALLED PT'S INSURANCE COMPANY PER DIRECTIONS TO ARRANGE PEER [place] PEER, , EXT [phone], LEFT VERY DETAILED MESSAGE FOR NURSE MARGIE, REQUESTING PEER TO PEER FOR INPATIENT REHAB DENIAL AND LEFT CM AND DR. ARTIS'S PHONE NUMBERS. CM TO MEET WITH PT TO INFORM OF DENIAL AND WAITING RESULTS OF PEER TO PEER FOR INPATIENT REHAB RECONSIDERATION. Jordon Wilson, CASE MANAGEMENT Appended by Jordon Wilson on 05/31/2019 18:00 CDT: CM MET WITH PT AND SPOUSE IN ROOM INFORMED OF DENIAL BY INSURANCE FOR INPATIENT REHAB. PT AND SPOUSE AGREE THAT PT NEEDS REHAB AND IF PEER TO PEER DOES NOT WORK TO GET PT INTO INPATIENT REHAB HERE, THEY WOULD LIKE REFERRAL TO [facility] AND [facility], CHOICE SIGNED. CM WAITING ON PEER TO PEER WITH INSURANCE BY DR. ARTIS. IF UNSUCCESSFUL, CM WILL SEND REFERRAL TO [facility] AND [facility], ASSISTED FOR REHAB. JORDON WILSON, CASE MANAGEMENT DCP- Discharge Planning Updated by [id number]: Jordon Wilson on 05/29/19 4:[address] Patient Name: TRIP WITT Admission Status: ER Accout number: [id number] Admission Date: 05-26-2019 : 1935 Admission Diagnosis: Attending: COLIN YIP Current LOS: 3 Anticipated DC Date: 05-30-2019 Planned Disposition: Inpatient Rehab Primary Insurance: [place] [employer] PLANNED EXTERNAL PROVIDER: [facility] INPATIENT REHAB Discharge Planning Comments: CM RECEIVED INPATIENT REHAB PRESCREENING AND ORDER FOR NEBULIZER AND NEB MEDICATIONS. CM MET WITH PT IN ROOM TO DISCUSS DISCHARGE PLANNING AND NEEDS. PT REPORTS LIVING AT HOME INDEPENDENTLY WITH HER SPOUSE. PT HAS A CANE WITH NO MEDICAL EQUIPMENT PROVIDER PREFERENCE. PT HAS NO OUTSIDE SERVICES ASSISTING IN THE HOME. CM DISCUSSED AVAILABILITY OF HOME HEALTH, REHAB SERVICES AND MEDICAL EQUIPMENT. CM DISCUSSED AVAILABILITY OF REHAB, PROVIDERS AND LOCATIONS. PT WANTS REHAB AT [place]. IMPORTANT MESSAGE FROM MEDICARE PROVIDED AND EXPLAINED. CHOICE SIGNED FOR [facility] INPATIENT REHAB. CM WAITING INSURANCE DETERMINATION FOR INPATIENT REHAB AT [place]. Mixer And Blender: Jordon Wilson DCPIA - Discharge Planning Initial Assessment Updated by [id number]: oJrdon Wilson on 05/29/19 5:13 pm * Is the patient Alert and Oriented? Yes * How many steps to enter\exit or inside your home? NONE * PCP DR. LEONE * Pharmacy [facility] * Preadmission Environment Home with Family * ADLs Independent * Equipment Cane * Other Equipment NO MEDICAL EQUIPMENT PROVIDER PREFERENCE * List name and contact numbers for known caregivers / representatives who currently or will assist patient after discharge: HAL WITT, SPOUSE, * Verbal permission to speak to the caregivers and representatives has been obtained from the patient. N/A * Community resources currently utilized None * Please name any agencies selected above. NONE * Additional services required to return to the preadmission environment? Yes * Can the patient safely return to the preadmission environment? Yes * Has this patient been hospitalized within the prior 30 days at any hospital? Yes Coverage Notice Reviewer: [id number] Sravan Wilson Notice Issued Date-Time: 05/29/2019 16:40 Notice Type: IM Discharge Notice Notice Delivered To: Patient Relationship to Patient: Foundry Laborer Coreroom Name: Delivery Method: HAND - Hand Delivered Tory Days: Prior Verbal Notification: Recipient Understood Notice: Yes Recipient Signature: Yes Med Rec Note Co-signed by Attending: Coverage Notice Comment: Reviewer: JASS Wilson Notice Issued Date-Time: 05/29/2019 16:40 Notice Type: Patient Choice Letter Notice Delivered To: Patient Relationship to Patient: Foundry Laborer Coreroom Name: Delivery Method: HAND - Hand Delivered Tory Days: Prior Verbal Notification: Recipient Understood Notice: Yes Recipient Signature: Yes Med Rec Note Co-signed by Attending: Coverage Notice Comment: [facility] IP REHAB Reviewer: [id number] Sravan Wilson Notice Issued Date-Time: 05/31/2019 13:10 Notice Type: Patient Choice Letter Notice Delivered To: Family Member Relationship to Patient: Spouse Foundry Laborer Coreroom Name: HAL WITT Delivery Method: HAND - Hand Delivered Tory Days: Prior Verbal Notification: Recipient Understood Notice: Yes Recipient Signature: Yes Med Rec Note Co-signed by Attending: Coverage Notice Comment: [facility] Last DP export: 06/05/19 9:58 a Patient Name: TRIP WITT Page [id number] at 1515 All edits/amendments must be made on the electronic document DICTATION DATE: 06/05/191514 WATCHMAKER APPRENTICE: ALVERTO 06/05/191514 RPT#: [id number] DC DATE: STATUS: ADM IN [facility] [address] [place] [address] END OF REPORT
--- NOTE | 2019-06-05 15:36 | NUR ---
OT NOTE: PT REMAINS VERY CONFUSED; ASLEEP IN CHAIR ( WHO ALSO SEEMS CONFUSED)..MIN/MOD ASSIST WITH ADLS WITH FREQ VERBAL CUES DUE TO CONFUSION. PT INCONT AND REQUIRED FULL ASSIST WITH HYGIENE. AMB IN ROOM WITH WALKER AND MIN ASSIST. LEANDRO SLOAN, OTR/L [phone]
--- NOTE | 2019-06-05 18:11 | NUR ---
OT NOTE: PT REQUIRED MIN A FOR JEAN/DOFF BRIEF. PT COMPLETED LB HYGIENE WITH MAX A. PT COMPLETED SIT TO STAND WITH CGA/MIN A. PT COMPLETED ADL MOB WITH RW REQUIRED CGA. PT IS CONFUSED AND REQUIRED VERBAL CUES. [phone] THANK YOU,GENEVA TIWARI
[2019-06-05 20:00] VITALS: BP 139/68
[2019-06-06] VITALS: BP 125/96
[2019-06-06 04:00] VITALS: BP 130/70
--- NOTE | 2019-06-06 05:41 | NUR ---
I have reviewed this patient and I concur with the Shift Assessment completed by the Licensed Practical Nurse today this shift.
[2019-06-06 06:31] LABS: HEMATOCRIT 35.6 % (36.0-48.0); HEMOGLOBIN 11.5 g/dL (12-16); MCH 31.9 pg (26.0-34.0); MCHC 32.3 g/dL (31.0-37.0); MEAN PLATELET VOLUME 10.4 fL (7.4-10.4); PLATELET COUNT 263 10x3/uL (130-400); RBC 3.61 10x6/uL (4.00-5.40); RDW 14.9 % (11.5-14.5); WBC 5.5 10x3/uL (4.8-10.8)
[2019-06-06 06:32] LABS: MCV 98.6 fL (80.0-100.0)
[2019-06-06 06:38] LABS: ANION GAP 12.7 mmol/L (8-16); CALCIUM 8.1 mg/dL (8.5-10.1); CARBON DIOXIDE 23.2 mmol/L (21.0-32.0); CREATININE - SERUM 1.6 mg/dL (0.6-1.3); POTASSIUM - SERUM 3.9 mmol/L (3.5-5.1)
[2019-06-06 08:52] LABS: ANISOCYTOSIS OCC; EOSINOPHILS 10 % (0-7); LYMPHOCYTES 28 % (15-50); MONOCYTES 9 % (2-11); NEUTROPHILS 49 % (40-80); PLATELET ESTIMATE NORMAL; ROULEAUX OCC
--- NOTE | 2019-06-06 08:58 | MORECARE ---
CASE MANAGEMENT DISCHARGE SUMMARY PATIENT: TRIP WITT UNIT: [id number] ADM DATE: 05/26/19 AGE: 83 : 36 SEX: F ROOM/BED: D.2604 AUTHOR: SAUL ROSA PHYSICIAN: REFERRING PHYSICIAN: MILE YIP MD DATE OF SERVICE: 06/06/19 Discharge Plan Patient Name: TRIP WITT Facility: [facility]:[place] : 1935 Planned Disposition: Longterm Facility Anticipated Discharge Date: 06/07/19 Discharge Date: Expected LOS: 12 Initial Reviewer: [id number] Initial Review Date: 05/29/2019 Generated: 06/06/19 9:57 am DCP- Discharge Planning Updated by [id number]: Jordon Wilson on 06/05/19 2:[address] Patient Name: TRIP WITT Encounter No: [id number] : 1935 Primary Insurance: [employer] MEDICARE SOLUTIONS Anticipated DC Date: 05-31-2019 Planned Disposition: Longterm Facility External Planned Provider: TO BE DETERMINED DCP follow-up note: CM RECEIVED MESSAGE FROM [employer] [facility], PT IS OUT OF INSURANCE NETWORK FOR [facility]; OUT OF NETWORK WOULD COST PT $175 PER DAY FOR THE FIRST 20 DAYS OF REHAB. IN NETWORK PROVIDERS ARE [facility] AND [facility]. CM SPOKE TO PT IN ROOM WHO DOES NOT WANT TO GO TO OUT OF NETWORK FACILITY, DIRECTED CM TO SPEAK TO HER SPOUSE. SPOUSE NOT PRESENT. CM CALLED HAL WITT AT HOME, , MULTIPLE TIMES; THERE WAS NO ANSWER AND NO ANSWERING MACHINE TO LEAVE A MESSAGE. CM ASKED BEDSIDE NURSE TO NOTIFY CM IF AND WHEN PT'S SPOUSE ARRIVES. CM WILL CONTINUE TO ATTEMPT TO LOCATE PT'S SPOUSE, HAL WITT, TO DISCUSS REHAB AT IN NETWORK FDC FACILITY, [facility] OR [facility]. Jordon Wilson, CASE MANAGEMENT DCP- Discharge Planning Updated by [id number]: Jordon Wilson on 06/05/19 9:[address] Patient Name: TRIP WITT Encounter No: [id number] : 1935 Primary Insurance: [place] MED[employer] SOLUTIONS Anticipated DC Date: 05-31-2019 Planned Disposition: Longterm Facility External Planned Provider: [facility], MEDICARE REHAB BED DCP follow-up note: CM FAXED REFERRAL UDPATE TO [facility] AT [phone]. CM CONTINUES TO WAIT ADMISSION DETERMINATION AND INSURANCE AUTHORIZATION FROM [facility]. MELONY GASPAR MANAGEMENT DCP- Discharge Planning Updated by [id number]: Jordon Wilson on 06/01/19 4:[address] Patient Name: TRIP WITT Encounter No: [id number] : 1935 Primary Insurance: [facility] MEDICARE SOLUTIONS Anticipated DC Date: 05-31-2019 Planned Disposition: Longterm Facility External Planned Provider: [facility], MEDICARE REHAB BED DCP follow-up note: CM SPOKE TO DR. ARTIS WHO INFORMED CM THAT INSURANCE HAS RECOMMENDED FDC. CM NOTIFIED PATIENT IN ROOM. CHOICE PREVIOUSLY SIGNED FOR [place]. CM NOTIFIED SAEID MCGEE [facility], , OF REFERRAL. CM FAXED REFERRAL TO [facility] AT [phone]. CM WAITING ADMISSION DETERMINATION FOR REHAB AT [facility]. Jordon Wilson, CASE MANAGEMENT Appended by Jordon Wilson on 06/01/2019 17:58 CDT: CM SPOKE TO KAMRAN OF ADULT PROTECTIVE SERVICES, , AT [employer] ST[employer]. SHE IS WORKING A REFERRAL REGARDING PT AND HER SPOUSE; THERE IS NO HOLD BY ADULT PROTECTIVE SERVICES, KAMRAN WILL CONTINUE TO FOLLOW UP WITH THEM AFTER DISHCARGE. CM PROVIDED KAMRAN WITH MEDICAL RECORDS REQUEST. CM CONTINUES TO WAIT ADMISSION DETERMINATION FROM [facility]. MELONY GASPAR MANAGEMENT DCP- Discharge Planning Updated by [id number]: Jordon Wilson on 05/31/19 5:[address] Patient Name: TRIP WITT Encounter No: [id number] : 1935 Primary Insurance: [facility] MEDICARE SOLUTIONS Anticipated DC Date: 05-31-2019 Planned Disposition: Inpatient Rehab External Planned Provider: [facility] INPATIENT REH[facility] DCP follow-up note: CM SPOKE TO STEVEN OF INPATIENT REHAB AT [facility] MEETING WHO INFORMED TEAM THAT INSURANCE HAS DECLINED INPATIENT REHAB. DR. ARTIS STATES HE WILL DO PEER TO PEER WITH INSURANCE FOR RE CONSIDERATION HE FEELS SHE NEEDS INPATIENT REHAB. RN CM EDDS INFORMED CM THAT INSURANCE HAS INDICATED TO HER THAT FDC IS APPROPRIATE FOR PT'S NEEDS. CM CALLED PT'S INSURANCE COMPANY PER DIRECTIONS TO ARRANGE PEER TO PEER, , EXT [phone], LEFT VERY DETAILED MESSAGE FOR NURSE MARGIE, REQUESTING PEER TO PEER FOR INPATIENT REHAB DENIAL AND LEFT CM AND DR. ARTIS'S PHONE NUMBERS. CM TO MEET WITH PT TO INFORM OF DENIAL AND WAITING RESULTS OF PEER TO PEER FOR INPATIENT REHAB RECONSIDERATION. Jordon Wilson, CASE MANAGEMENT Appended by Jordon Wilson on 05/31/2019 18:00 CDT: CM MET WITH PT AND SPOUSE IN ROOM INFORMED OF DENIAL BY INSURANCE FOR INPATIENT REHAB. PT AND SPOUSE AGREE THAT PT NEEDS REHAB AND IF PEER TO PEER DOES NOT WORK TO GET PT INTO INPATIENT REHAB HERE, THEY [facility] AND [facility], CHOICE SIGNED. CM WAITING ON PEER TO PEER WITH INSURANCE BY DR. ARTIS. IF UNSUCCESSFUL, CM WILL SEND REFERRAL TO [facility] AND [facility], FDC FOR REHAB. JORDON WILSON, CASE MANAGEMENT DCP- Discharge Planning Updated by [id number]: Jordon Wilson on 05/29/19 4:[address] Patient Name: TRIP WITT Admission Status: ER Accout number: [id number] Admission Date: 05-26-2019 : 1935 Admission Diagnosis: Attending: COLIN YIP Current LOS: 3 Anticipated DC Date: 05-30-2019 Planned Disposition: Inpatient Rehab Primary Insurance: [facility] MEDICARE EDAN PLANNED EXTERNAL PROVIDER: [facility] INPATIENT REHAB Discharge Planning Comments: CM RECEIVED INPATIENT REHAB PRESCREENING AND ORDER FOR NEBULIZER AND NEB MEDICATIONS. CM MET WITH PT IN ROOM TO DISCUSS DISCHARGE PLANNING AND NEEDS. PT REPORTS LIVING AT HOME INDEPENDENTLY WITH HER SPOUSE. PT HAS A CANE WITH NO MEDICAL EQUIPMENT PROVIDER PREFERENCE. PT HAS NO OUTSIDE SERVICES ASSISTING IN THE HOME. CM DISCUSSED AVAILABILITY OF HOME HEALTH, REHAB SERVICES AND MEDICAL EQUIPMENT. CM DISCUSSED AVAILABILITY OF REHAB, PROVIDERS AND LOCATIONS. PT WANTS REHAB AT [place]. IMPORTANT MESSAGE FROM MEDICARE PROVIDED AND EXPLAINED. CHOICE SIGNED FOR [facility] INPATIENT REH[facility]. CM WAITING INSURANCE DETERMINATION FOR INPATIENT REHAB AT [place]. Garnett Machine Operator Helper: Jordno Wilson DCPIA - Discharge Planning Initial Assessment Updated by [id number]: Jordon Wilson on 05/29/19 5:13 pm * Is the patient Alert and Oriented? Yes * How many steps to enter\exit or inside your home? NONE * PCP DR. LEONE * Pharmacy [place] * Preadmission Environment Home with Family * ADLs Independent * Equipment Cane * Other Equipment NO MEDICAL EQUIPMENT PROVIDER PREFERENCE * List name and contact numbers for known caregivers / representatives who currently or will assist patient after discharge: HAL WITT, SPOUSE, * Verbal permission to speak to the caregivers and representatives has been obtained from the patient. N/A * Community resources currently utilized None * Please name any agencies selected above. NONE * Additional services required to return to the preadmission environment? Yes * Can the patient safely return to the preadmission environment? Yes * Has this patient been hospitalized within the prior 30 days at any hospital? Yes External Providers External Provider: [facility] Next Contact Date: 06/06/2019 Service Request Date: Service Type: Resolution: Reviewer: Comments: Coverage Notice Reviewer: [id number] Sravan Wilson Notice Issued Date-Time: 05/29/2019 16:40 Notice Type: IM Discharge Notice Notice Delivered To: Patient Relationship to Patient: Senior Publications Specialist Name: Delivery Method: HAND - Hand Delivered Tory Days: Prior Verbal Notification: Recipient Understood Notice: Yes Recipient Signature: Yes Med Rec Note Co-signed by Attending: Coverage Notice Comment: Reviewer: [id number] Wilson Notice Issued Date-Time: 05/29/2019 16:40 Notice Type: Patient Choice Letter Notice Delivered To: Patient Relationship to Patient: Senior Publications Specialist Name: Delivery Method: HAND - Hand Delivered Tory Days: Prior Verbal Notification: Recipient Understood Notice: Yes Recipient Signature: Yes Med Rec Note Co-signed by Attending: Coverage Notice Comment: [facility] IP REHAB Reviewer: [id number] Sravan Wilson Notice Issued Date-Time: 05/31/2019 13:10 Notice Type: Patient Choice Letter Notice Delivered To: Family Member Relationship to Patient: Spouse Senior Publications Specialist Name: HAL WITT Delivery Method: HAND - Hand Delivered Tory Days: Prior Verbal Notification: Recipient Understood Notice: Yes Recipient Signature: Yes Med Rec Note Co-signed by Attending: Coverage Notice Comment: [facility] Last DP export: 06/05/19 2:16 p Patient Name: TRIP WITT Page 99489 at 0858 All edits/amendments must be made on the electronic document DICTATION DATE: 06/06/19856 CEILING INSTALLER: ALVERTO 06/06/19856 RPT#: [id number] DC DATE: STATUS: ADM IN [facility] [address] [place] [address] END OF REPORT
--- NOTE | 2019-06-06 09:19 | MORECARE ---
CASE MANAGEMENT DISCHARGE SUMMARY PATIENT: TRIP WITT UNIT: [id number] ADM DATE: 05/26/19 AGE: 83 : 36 SEX: F ROOM/BED: D.2124 AUTHOR: MOE,DOC PHYSICIAN: REFERRING PHYSICIAN: MILE YIP MD DATE OF SERVICE: 06/06/19 Discharge Plan Patient Name: TRIP WITT Facility: [facility]:[place] : 1935 Planned Disposition: Assisted Facility Anticipated Discharge Date: 06/07/19 Discharge Date: Expected LOS: 12 Initial Reviewer: [id number] Initial Review Date: 05/29/2019 Generated: 06/06/19 10:18 am Comments DCP- Discharge Planning Updated by [id number]: Teena Wislon on 06/06/19 8:[address] Patient Name: TRIP WITT Encounter No: [id number] : 1935 Primary Insurance: [facility] MEDICARE SOLUTIONS Anticipated DC Date: 06-07-2019 Planned Disposition: Assisted Facility External Planned Provider: [facility], MEDICARE REHAB BED DCP follow-up note: CM FAXED REFERRAL TO [facility] VIA [place] AT [phone]. CM NOTIFIED [place] OF REFERRAL AT [phone]. CM WAITING ADMISSION DETERMINATION AND INSURANCE DETERMINATION FOR REHAB ADMISSION TO [facility]. TEENA WILSON, CASE MANAGEMENT Teena Wilson DCP- Discharge Planning Updated by [id number]: Teena Wilson on 06/06/19 8:[address] Patient Name: TRIP WITT Encounter No: [id number] : 1935 Primary Insurance: [facility] MEDICARE SOLUTIONS Anticipated DC Date: 05-31-2019 Planned Disposition: Assisted Facility External Planned Provider: TO BE DETERMINED DCP follow-up note: CM RECEIVED MESSAGE FROM [facility], PT IS OUT OF INSURANCE NETWORK FOR [place], [facility] AND [facility]; OUT OF NETWORK WOULD COST PT $175 PER DAY FOR THE FIRST 20 DAYS OF REHAB. IN NETWORK PROVIDERS ARE [facility] AND [place]. CM SPOKE TO PT IN ROOM WHO DOES NOT WANT TO GO TO OUT OF NETWORK FACILITY, DIRECTED CM TO SPEAK TO HER SPOUSE. SPOUSE NOT PRESENT. CM CALLED HAL WITT AT HOME, , MULTIPLE TIMES; THERE WAS NO ANSWER AND NO ANSWERING MACHINE TO LEAVE A MESSAGE. CM ASKED BEDSIDE NURSE TO NOTIFY CM IF AND WHEN PT'S SPOUSE ARRIVES. CM WILL CONTINUE TO ATTEMPT TO LOCATE PT'S SPOUSE, HAL WITT, TO DISCUSS REHAB AT IN NETWORK [facility], [facility] OR [facility]. Teena Wilson, CASE MANAGEMENT Appended by Teena Wilson on 06/06/2019 9:13 CDT: LATE ENTRY, 06-06-19, 1710 HOURS: CM MET WITH PT AT NURSES STATION HE ARRIVED TO VISIT WITH PT. CM DISCUSSED INPATIENT DENIAL AND NOTIFIED THAT [place], [facility] AND [facility] ARE OUT OF PT'S INSURANCE NETWORK. CHOICE LISTING DISCUSSED AND REVIEWED. ED ASKED FOR REFERRAL TO THE [facility]. CHOICE COMPLETED. CM TO SEND REFERRAL TO THE [facility] FOR REHAB SOON POSSIBLE. MELONY GASPAR DCP- Discharge Planning Updated by [id number]: Teena Wilson on 06/05/19 9:[address] Patient Name: TRIP WITT Encounter No: [id number] : 1935 Primary Insurance: [facility] MEDICARE SOLUTIONS Anticipated DC Date: 05-31-2019 Planned Disposition: Assisted Facility External Planned Provider: [facility], MEDICARE REHAB BED DCP follow-up note: CM FAXED REFERRAL UDPATE TO [facility] FOR [place] AT [phone]. CM CONTINUES TO WAIT ADMISSION DETERMINATION AND INSURANCE AUTHORIZATION FROM [facility]. MELONY GASPAR DCP- Discharge Planning Updated by [id number]: Teena Wilson on 06/01/19 4:[address] Patient Name: TRIP WITT Encounter No: [id number] : 1935 Primary Insurance: [facility] MEDICARE SOLUTIONS Anticipated DC Date: 05-31-2019 Planned Disposition: Assisted Facility External Planned Provider: [facility], MEDICARE REHAB BED DCP follow-up note: CM SPOKE TO DR. ARTIS WHO INFORMED CM THAT INSURANCE HAS RECOMMENDED [facility]. CM NOTIFIED PATIENT IN ROOM. JENNIFER PREVIOUSLY SIGNED FOR [place]. CM NOTIFIED [facility], , OF REFERRAL. CM FAXED REFERRAL TO [facility] FOR [place] AT [phone]. CM WAITING ADMISSION DETERMINATION FOR REHAB AT [facility]. Teena Wilson, CASE MANAGEMENT Appended by Teena Wilson on 06/01/2019 17:58 CDT: CM SPOKE TO [facility] OF [facility], , AT NURSES STATION. SHE IS WORKING A REFERRAL REGARDING PT AND HER SPOUSE; THERE IS NO HOLD BY [facility], K[facility] WILL CONTINUE TO FOLLOW UP WITH THEM AFTER DISHCARGE. CM PROVIDED K[facility] WITH MEDICAL RECORDS REQUEST. CM CONTINUES TO WAIT ADMISSION DETERMINATION FROM [facility] AND [facility]. TEENA WILSON, CASE MANAGEMENT DCP- Discharge Planning Updated by [id number]: Teena Wilson on 05/31/19 5:[address] Patient Name: TRIP WITT Encounter No: [id number] : 1935 Primary Insurance: [facility] MEDICARE SOLUTIONS Anticipated DC Date: 05-31-2019 Planned Disposition: Inpatient Rehab External Planned Provider: [facility] INPATIENT REHAB DCP follow-up note: CM SPOKE TO STEVEN OF INPATIENT REHAB AT [facility] MEETING WHO INFORMED TEAM THAT INSURANCE HAS DECLINED INPATIENT REHAB. DR. ARTIS STATES HE WILL DO PEER TO PEER WITH INSURANCE FOR RE CONSIDERATION HE FEELS SHE NEEDS INPATIENT REHAB. RN ILIR EDDS INFORMED CM THAT INSURANCE HAS INDICATED TO HER THAT [facility] IS APPROPRIATE FOR PT'S NEEDS. CM CALLED PT'S INSURANCE COMPANY PER DIRECTIONS TO ARRANGE PEER [place] PEER, , EXT [phone], LEFT VERY DETAILED MESSAGE FOR NURSE HANSON, REQUESTING PEER TO PEER FOR INPATIENT REHAB DENIAL AND LEFT ILIR AND DR. ARTIS'S PHONE NUMBERS. CM TO MEET WITH PT TO INFORM OF DENIAL AND WAITING RESULTS OF PEER TO PEER FOR INPATIENT REHAB RECONSIDERATION. Teena Wilson, CASE MANAGEMENT Appended by Teena Wilson on 05/31/2019 18:00 CDT: CM MET WITH PT AND SPOUSE IN ROOM INFORMED OF DENIAL BY INSURANCE FOR INPATIENT REHAB. PT AND SPOUSE AGREE THAT PT NEEDS REHAB AND IF PEER TO PEER DOES NOT WORK TO GET PT INTO INPATIENT REHAB HERE, THEY WOULD LIKE REFERRAL TO [facility], CHOICE SIGNED. CM WAITING ON PEER TO PEER WITH INSURANCE BY DR. ARTIS. IF UNSUCCESSFUL, CM WILL SEND REFERRAL TO [facility] AND [facility], [facility] FOR [facility]. TEENA WILSON, CASE MANAGEMENT DCP- Discharge Planning Updated by [id number]: Teena Wilson on 05/29/19 4:[address] Patient Name: TRIP WITT Admission Status: ER Accout number: [id number] Admission Date: 05-26-2019 : 1935 Admission Diagnosis: Attending: COLIN YIP Current LOS: 3 Anticipated DC Date: 05-30-2019 Planned Disposition: Inpatient Rehab Primary Insurance: [facility] MEDICARE SOLUTIONS PLANNED EXTERNAL PROVIDER: [facility] INPATIENT REHAB Discharge Planning Comments: CM RECEIVED INPATIENT REHAB PRESCREENING AND ORDER FOR NEBULIZER AND NEB MEDICATIONS. CM MET WITH PT IN ROOM TO DISCUSS DISCHARGE PLANNING AND NEEDS. PT REPORTS LIVING AT HOME INDEPENDENTLY WITH HER SPOUSE. PT HAS A CANE WITH NO MEDICAL EQUIPMENT PROVIDER PREFERENCE. PT HAS NO OUTSIDE SERVICES ASSISTING IN THE HOME. CM DISCUSSED AVAILABILITY OF HOME HEALTH, REHAB SERVICES AND MEDICAL EQUIPMENT. CM DISCUSSED AVAILABILITY OF REHAB, PROVIDERS AND LOCATIONS. PT WANTS REHAB AT [place]. IMPORTANT MESSAGE FROM MEDICARE PROVIDED AND EXPLAINED. CHOICE SIGNED FOR [facility] INPATIENT REHAB. CM WAITING INSURANCE DETERMINATION FOR INPATIENT REHAB AT [place]. Timekeeping Supervisor: Teena Wilson DCPIA - Discharge Planning Initial Assessment Updated by [id number]: Teena Wilson on 05/29/19 5:13 pm * Is the patient Alert and Oriented? Yes * How many steps to enter\exit or inside your home? NONE * PCP DR. LEONE * Pharmacy [facility] * Preadmission Environment Home with Family * ADLs Independent * Equipment Cane * Other Equipment NO MEDICAL EQUIPMENT PROVIDER PREFERENCE * List name and contact numbers for known caregivers / representatives who currently or will assist patient after discharge: HAL WITT, SPOUSE, * Verbal permission to speak to the caregivers and representatives has been obtained from the patient. N/A * Community resources currently utilized None * Please name any agencies selected above. NONE * Additional services required to return to the preadmission environment? Yes * Can the patient safely return to the preadmission environment? Yes * Has this patient been hospitalized within the prior 30 days at any hospital? Yes Coverage Notice Reviewer: [id number] - Teena Wilson Notice Issued Date-Time: 06/06/2019 17:15 Notice Type: Patient Choice Letter Notice Delivered To: Family Member Relationship to Patient: Spouse Ekg Tech Name: ED EDUAR Delivery Method: HAND - Hand Delivered Tory Days: Prior Verbal Notification: Recipient Understood Notice: Yes Recipient Signature: Med Rec Note Co-signed by Attending: Coverage Notice Comment: RICKIE LAGOS Reviewer: [id number] Wilson Notice Issued Date-Time: 05/31/2019 13:10 Notice Type: Patient Choice Letter Notice Delivered To: Family Member Relationship to Patient: Spouse Ekg Tech Name: ED EDUAR Delivery Method: HAND - Hand Delivered Tory Days: Prior Verbal Notification: Recipient Understood Notice: Yes Recipient Signature: Yes Med Rec Note Co-signed by Attending: Coverage Notice Comment: [facility] Reviewer: [id number] Wilson Notice Issued Date-Time: 05/29/2019 16:40 Notice Type: Patient Choice Letter Notice Delivered To: Patient Relationship to Patient: Ekg Tech Name: Delivery Method: HAND - Hand Delivered Tory Days: Prior Verbal Notification: Recipient Understood Notice: Yes Recipient Signature: Yes Med Rec Note Co-signed by Attending: Coverage Notice Comment: [facility] Reviewer: JASS Wilson Notice Issued Date-Time: 05/29/2019 16:40 Notice Type: IM Discharge Notice Notice Delivered To: Patient Relationship to Patient: Ekg Tech Name: Delivery Method: HAND - Hand Delivered Tory Days: Prior Verbal Notification: Recipient Understood Notice: Yes Recipient Signature: Yes Med Rec Note Co-signed by Attending: Coverage Notice Comment: Last DP export: 06/06/19 7:58 a Patient Name: TRIP WITT Page 84650 at 0919 All edits/amendments must be made on the electronic document DICTATION DATE: 06/06/19917 HEARING SCREENER: ALVERTO 06/06/19917 RPT#: [id number] DC DATE: STATUS: ADM IN [facility] [address] [place] [address] END OF REPORT
[2019-06-06 09:41] VITALS: BP 139/65
--- NOTE | 2019-06-06 10:28 | NUR ---
Nutrition Follow-up: Pt had not started eating breakfast at time of visit this AM. Poor historian and unable to tell me how she has been eating but says she has been drinking some Ensure. Diet: Cardiac PO intake: 50% yesterday No new wt; last wt: 206# (05/31) Last BM: 06/04 per chart Labs noted: Ca 8.1 Meds noted: Protonix, Pepcid, NS @ 75 -Encourage PO intake and honor food preferences within diet restrictions. -Need new wt; noted daily wts ordered. -RD following.
--- NOTE | 2019-06-06 10:49 | NUR ---
BED BATH AND COMPLETE LINEN CHANGE DONE AT THIS TIME.
[2019-06-06 12:47] VITALS: BP 140/71
--- NOTE | 2019-06-06 15:20 | NUR ---
OT NOTE: PT RESTING IN BED; EASILY AROUSED; BED MOB WITH MIN ASSIST; AMB TO BATHROOM WITH MIN ASSIST AND USE OF WALKER; MOD ASSIST WITH TOILETING TODAY. AMB INTO HALLWAY WITH WALKER AND MIN ASSIST BUT ONLY ABLE TO AMB APPROX 50 FT; PT STATED THAT SHE FELT TOO WEAK. BACK TO BED WITH MIN ASSIST; SET UP LUNCH TRAY AND CUT MEATS, ETC.. PT ABLE TO USE UTENSILS BUT VERY SLOW WITH FEEDING. LEANDRO SLOAN, OTR/L [phone]
[2019-06-06 16:56] VITALS: BP 111/63
[2019-06-06 22:08] VITALS: BP 153/85
[2019-06-07] VITALS: BP 127/74
--- NOTE | 2019-06-07 03:59 | NUR ---
UP WITH ASSIST TO BSC.
[2019-06-07 05:24] LABS: BASOPHILS 0.6 % (0-2); EOSINOPHILS 5.1 % (0-7); HEMOGLOBIN 10.9 g/dL (12-16); IMMATURE GRANULOCYTES 6.3 % (0-5); LYMPHOCYTES 26.1 % (15-50); MCH 31.3 pg (26.0-34.0); MCHC 32.1 g/dL (31.0-37.0); MCV 97.7 fL (80.0-100.0); MEAN PLATELET VOLUME 9.3 fL (7.4-10.4); MONOCYTES 31.2 % (2-11); NEUTROPHILS 30.7 % (40-80); PLATELET COUNT 302 10x3/uL (130-400); RBC 3.48 10x6/uL (4.00-5.40); RDW 15.1 % (11.5-14.5); WBC 6.6 10x3/uL (4.8-10.8)
[2019-06-07 05:31] VITALS: BP 137/70
[2019-06-07 05:43] LABS: ANION GAP 10.6 mmol/L (8-16); CALCIUM 7.9 mg/dL (8.5-10.1); CARBON DIOXIDE 24.1 mmol/L (21.0-32.0); CREATININE - SERUM 1.6 mg/dL (0.6-1.3); POTASSIUM - SERUM 3.7 mmol/L (3.5-5.1)
--- NOTE | 2019-06-07 06:28 | NUR ---
I have reviewed this patient and I concur with the Shift Assessment completed by the Licensed Practical Nurse today this shift.
[2019-06-07 08:19] VITALS: BP 132/68
--- NOTE | 2019-06-07 12:20 | NUR ---
I have reviewed this patient and I concur with the Shift Assessment completed by the Licensed Practical Nurse today this shift.
[2019-06-07 12:21] VITALS: BP 126/72
--- NOTE | 2019-06-07 13:56 | NUR ---
OT NOTE: PT COMPLETED SUPINE TO SIT WITH MIN A. PT COMPLETED SIT TO STAND WITH MIN A. PT REQUIRED MIN A FOR SIT TO SUPINE. PT COMPLETED FACE AND HAND HYGIENE WITH SET UP AND MOD CUES. PT IS CONFUSED. [phone] THANK YOU,GENEVA TIWARI
--- NOTE | 2019-06-07 15:40 | MORECARE ---
CASE MANAGEMENT DISCHARGE SUMMARY PATIENT: TRIP WITT UNIT: [id number] ADM DATE: 05/26/19 AGE: 83 : 36 SEX: F ROOM/BED: D.5165 AUTHOR: MOE,DOC PHYSICIAN: REFERRING PHYSICIAN: MILE YIP MD DATE OF SERVICE: 06/07/19 Discharge Plan Patient Name: TRIP WITT Facility: [facility]:[place] : 1935 Planned Disposition: Nursing Home Facility Anticipated Discharge Date: 06/07/19 Discharge Date: Expected LOS: 12 Initial Reviewer: [id number] Initial Review Date: 05/29/2019 Generated: 06/07/19 4:39 pm Comments DCP- Discharge Planning Updated by [id number]: Teena Wilson on 06/07/19 2:[address] Patient Name: TRIP WITT Encounter No: [id number] : 1935 Primary Insurance: [facility] MEDICARE SOLUTIONS Anticipated DC Date: 06-07-2019 Planned Disposition: Nursing Home Facility External Planned Provider: [facility], MEDICARE REHAB BED DCP follow-up note: CM SPOKE TO TRAPHILL OF [facility], THEY ARE STILL PENDING RECEIPT OF INSURANCE AUTHORIZATION FOR SKILLED REHAB CARE. CM NOTIFIED PT AND SPOUSE. IMPORTANT MESSAGE FROM MEDICARE PROVIDED AND EXPLAINED. CM WAITING ADMISSION DETERMINATION AND INSURANCE DETERMINATION FOR REHAB ADMISSION TO [facility]. MELONY GASPAR DCP- Discharge Planning Updated by [email or web address]: Teena Wilson on 06/06/19 8:[address] Patient Name: TRIP WITT Encounter No: [id number] : 1935 Primary Insurance: [facility] MEDICARE SOLUTIONS Anticipated DC Date: 06-07-2019 Planned Disposition: Nursing Home Facility External Planned Provider: [facility], MEDICARE REHAB BED DCP follow-up note: CM FAXED REFERRAL TO [facility]IA [place] AT [phone]. CM NOTIFIED [facility] OF REFERRAL AT [phone]. CM WAITING ADMISSION DETERMINATION AND INSURANCE DETERMINATION FOR REHAB ADMISSION TO [facility]. TEENA WILSON, CASE MANAGEMENT Teena Wilson DCP- Discharge Planning Updated by [id number]: Teena Wilson on 06/06/19 8:[address] Patient Name: TRIP WITT Encounter No: [id number] : 1935 Primary Insurance: [facility] MEDIC[facility] SOLUTIONS Anticipated DC Date: 05-31-2019 Planned Disposition: Nursing Home Facility External Planned Provider: TO BE DETERMINED DCP follow-up note: CM RECEIVED MESSAGE FROM [facility], PT IS OUT OF INSURANCE NETWORK FOR [facility] [place], [place] AND [facility]; OUT OF NETWORK WOULD COST PT $175 PER DAY FOR THE FIRST 20 DAYS OF REHAB. IN NETWORK PROVIDERS ARE [facility]. CM SPOKE TO PT IN ROOM WHO DOES NOT WANT TO GO TO OUT OF NETWORK FACILITY, DIRECTED CM TO SPEAK TO HER SPOUSE. SPOUSE NOT PRESENT. CM CALLED HAL WITT AT HOME, , MULTIPLE TIMES; THERE WAS NO ANSWER AND NO ANSWERING MACHINE TO LEAVE A MESSAGE. CM ASKED BEDSIDE NURSE TO NOTIFY CM IF AND WHEN PT'S SPOUSE ARRIVES. CM WILL CONTINUE TO ATTEMPT TO LOCATE PT'S SPOUSE, HAL WITT, TO DISCUSS REHAB AT IN NETWORK [facility], [facility] OR [facility]. Teena Wilson, CASE MANAGEMENT Appended by Teena Wilson on 06/06/2019 9:13 CDT: LATE ENTRY, 06-06-19, 1710 HOURS: CM MET WITH PT AT NURSES STATION HE ARRIVED TO VISIT WITH PT. CM DISCUSSED INPATIENT DENIAL AND NOTIFIED THAT [facility], [place] AND [facility] ARE OUT OF PT'S INSURANCE NETWORK. CHOICE LISTING DISCUSSED AND REVIEWED. ED ASKED FOR REFERRAL TO [facility]. CHOICE COMPLETED. CM TO SEND REFERRAL TO [facility] FOR REHAB SOON POSSIBLE. TEENA WILSON, CASE MANAGEMENT DCP- Discharge Planning Updated by [id number]: Teena Wilson on 06/05/19 9:[address] Patient Name: TRIP WITT Encounter No: [id number] : 1935 Primary Insurance: [facility] MEDIC[facility] SOLUTIONS Anticipated DC Date: 05-31-2019 Planned Disposition: Nursing Home Facility External Planned Provider[facility] DCP follow-up note: CM FAXED REFERRAL UDPATE TO [facility] [place] AT [phone]. CM CONTINUES TO WAIT ADMISSION DETERMINATION AND INSURANCE AUTHORIZATION FROM [facility]. MELONY GASPAR DCP- Discharge Planning Updated by [id number]: Teena Wilson on 06/01/19 4:[address] Patient Name: TRIP WITT Encounter No: [id number] : 1935 Primary Insurance: [facility] MED[employer] SOLUTIONS Anticipated DC Date: 05-31-2019 Planned Disposition: Nursing Home Facility External Planned Provider: [facility], MEDICARE REHAB BED DCP follow-up note: CM SPOKE TO DR. ARTIS WHO INFORMED CM THAT INSURANCE HAS RECOMMENDED [facility]. CM NOTIFIED PATIENT IN ROOM. CHOICE PREVIOUSLY SIGNED FOR [place]. CM NOTIFIED [facility], , OF REFERRAL. CM FAXED REFERRAL TO [facility] FOR [place] AT [phone]. CM WAITING ADMISSION DETERMINATION FOR REHAB AT [facility]. Teena Wilson CASE MANAGEMENT Appended by Teena Wilson on 06/01/2019 17:58 CDT: CM SPOKE TO KAMRAN OF [facility]ULT [facility], , AT [employer] [facility]. SHE IS WORKING A REFERRAL REGARDING PT AND HER SPOUSE; THERE IS NO HOLD BY [facility]ULT [employer]IVE [facility], KAMRAN WILL CONTINUE TO FOLLOW UP WITH THEM AFTER DISHCARGE. CM PROVIDED KAMRAN WITH MEDICAL RECORDS REQUEST. CM CONTINUES TO WAIT ADMISSION DETERMINATION FROM [facility]. MELONY GASPAR DCP- Discharge Planning Updated by [id number]: Teena Wilson on 05/31/19 5:[address] Patient Name: TRIP WITT Encounter No: [id number] : 1935 Primary Insurance: [facility] MEDICARE SOLUTIONS Anticipated DC Date: 05-31-2019 Planned Disposition: Inpatient Rehab External Planned Provider: [facility] INPATIENT REHAB DCP follow-up note: CM SPOKE TO STEVEN OF INPATIENT REHAB AT [facility] MEETING WHO INFORMED TEAM THAT INSURANCE HAS DECLINED INPATIENT REHAB. DR. ARTIS STATES HE WILL DO PEER TO PEER WITH INSURANCE FOR RE CONSIDERATION HE FEELS SHE NEEDS INPATIENT REHAB. RN ILIR EDDS INFORMED CM THAT INSURANCE HAS INDICATED TO HER THAT [facility] IS APPROPRIATE FOR PT'S NEEDS. CM CALLED PT'S INSURANCE COMPANY PER DIRECTIONS TO ARRANGE PEER TO PEER, , EXT [phone], LEFT VERY DETAILED MESSAGE FOR NURSE MARGIE, REQUESTING PEER TO PEER FOR INPATIENT REHAB DENIAL AND LEFT CM AND DR. ARTIS'S PHONE NUMBERS. CM TO MEET WITH PT TO INFORM OF DENIAL AND WAITING RESULTS OF PEER TO PEER FOR INPATIENT REHAB RECONSIDERATION. Teena Wilson, CASE MANAGEMENT Appended by Teena Wilson on 05/31/2019 18:00 CDT: CM MET WITH PT AND SPOUSE IN ROOM INFORMED OF DENIAL BY INSURANCE FOR INPATIENT REHAB. PT AND SPOUSE AGREE THAT PT NEEDS REHAB AND IF PEER TO PEER DOES NOT WORK TO GET PT INTO INPATIENT REHAB HERE, THEY [facility], CHOICE SIGNED. CM WAITING ON PEER TO PEER WITH INSURANCE BY DR. ARTIS. IF UNSUCCESSFUL, CM WILL SEND REFERRAL TO [facility] AND [facility], [facility] FOR REHAB. TEENA WILSON, CASE MANAGEMENT DCP- Discharge Planning Updated by [id number]: Teena Wilson on 05/29/19 4:[address] Patient Name: TRIP WITT Admission Status: ER Accout number: [id number] Admission Date: 05-26-2019 : 1935 Admission Diagnosis: Attending: COLIN YIP Current LOS: 3 Anticipated DC Date: 05-30-2019 Planned Disposition: Inpatient Rehab Primary Insurance: [facility] MEDICARE SOLUTIONS PLANNED EXTERNAL PROVIDER: [facility] INPATIENT REHAB Discharge Planning Comments: CM RECEIVED INPATIENT REHAB PRESCREENING AND ORDER FOR NEBULIZER AND NEB MEDICATIONS. CM MET WITH PT IN ROOM TO DISCUSS DISCHARGE PLANNING AND NEEDS. PT REPORTS LIVING AT HOME INDEPENDENTLY WITH HER SPOUSE. PT HAS A CANE WITH NO MEDICAL EQUIPMENT PROVIDER PREFERENCE. PT HAS NO OUTSIDE SERVICES ASSISTING IN THE HOME. CM DISCUSSED AVAILABILITY OF HOME HEALTH, REHAB SERVICES AND MEDICAL EQUIPMENT. CM DISCUSSED AVAILABILITY OF REHAB, PROVIDERS AND LOCATIONS. PT WANTS REHAB AT [place]. IMPORTANT MESSAGE FROM MEDICARE PROVIDED AND EXPLAINED. CHOICE SIGNED FOR [facility] INPATIENT REHAB. CM WAITING INSURANCE DETERMINATION FOR INPATIENT REHAB AT [place]. Local City Driver: Teena Wilson DCPIA - Discharge Planning Initial Assessment Updated by [id number]: Teena Wilson on 05/29/19 5:13 pm * Is the patient Alert and Oriented? Yes * How many steps to enter\exit or inside your home? NONE * PCP DR. LEONE * Pharmacy [facility] * Preadmission Environment Home with Family * ADLs Independent * Equipment Cane * Other Equipment NO MEDICAL EQUIPMENT PROVIDER PREFERENCE * List name and contact numbers for known caregivers / representatives who currently or will assist patient after discharge: MONIKA SUGGS, * Verbal permission to speak to the caregivers and representatives has been obtained from the patient. N/A * Community resources currently utilized None * Please name any agencies selected above. NONE * Additional services required to return to the preadmission environment? Yes * Can the patient safely return to the preadmission environment? Yes * Has this patient been hospitalized within the prior 30 days at any hospital? Yes Coverage Notice Reviewer: JASS Wilson Notice Issued Date-Time: 05/29/2019 16:40 Notice Type: IM Discharge Notice Notice Delivered To: Patient Relationship to Patient: Slasher Operator Name: Delivery Method: HAND - Hand Delivered Tory Days: Prior Verbal Notification: Recipient Understood Notice: Yes Recipient Signature: Yes Med Rec Note Co-signed by Attending: Coverage Notice Comment: Reviewer: JASS Wilson Notice Issued Date-Time: 05/29/2019 16:40 Notice Type: Patient Choice Letter Notice Delivered To: Patient Relationship to Patient: Slasher Operator Name: Delivery Method: HAND - Hand Delivered Tory Days: Prior Verbal Notification: Recipient Understood Notice: Yes Recipient Signature: Yes Med Rec Note Co-signed by Attending: Coverage Notice Comment: [facility] Reviewer: JASS Wilson Notice Issued Date-Time: 05/31/2019 13:10 Notice Type: Patient Choice Letter Notice Delivered To: Family Member Relationship to Patient: Spouse Slasher Operator Name: HAL WITT Delivery Method: HAND - Hand Delivered Tory Days: Prior Verbal Notification: Recipient Understood Notice: Yes Recipient Signature: Yes Med Rec Note Co-signed by Attending: Coverage Notice Comment: [facility] Reviewer: [id number] Wilson Notice Issued Date-Time: 06/06/2019 17:15 Notice Type: Patient Choice Letter Notice Delivered To: Family Member Relationship to Patient: Spouse Slasher Operator Name: HAL WITT Delivery Method: HAND - Hand Delivered Tory Days: Prior Verbal Notification: Recipient Understood Notice: Yes Recipient Signature: Med Rec Note Co-signed by Attending: Coverage Notice Comment: RICKIE LGAOS Reviewer: [id number] Wilson Notice Issued Date-Time: 06/07/2019 15:25 Notice Type: IM Discharge Notice Notice Delivered To: Patient Relationship to Patient: Slasher Operator Name: Delivery Method: HAND - Hand Delivered Tory Days: Prior Verbal Notification: Recipient Understood Notice: Yes Recipient Signature: Yes Med Rec Note Co-signed by Attending: Coverage Notice Comment: Last DP export: 06/06/19 8:19 a Patient Name: TRIP WITT Page 69654 at 1540 All edits/amendments must be made on the electronic document DICTATION DATE: 06/07/191538 MOLD WASHER: ALVERTO 06/07/19 1539 RPT#: [id number] DC DATE: STATUS: ADM IN [facility] [address] [place] [address] END OF REPORT
[2019-06-07 16:20] VITALS: BP 128/87
--- NOTE | 2019-06-07 16:29 | NUR ---
LEFT UPPER ARM 22G IV INFILTARTED. LOREN COLEMAN STATES PT DOES NOT NEED ANOHTER IV BECAUSE WE ARE WAITING ON PLACEMENT.
--- NOTE | 2019-06-07 16:59 | NUR ---
PT REFUSING TO HAVE MEPILEX ON BUTTOCK/COCCYX CHANGED.
[2019-06-07] MEDS ORDERED: METOPROLOL TART50 MG PO (17:04)
[2019-06-07] MEDS ORDERED: CARDIZEM CD180 MG PO (17:04)
[2019-06-07] MEDS ORDERED: ASPIRIN EC81 M1 PO (17:04)
--- NOTE | 2019-06-07 17:20 | MORECARE ---
CASE MANAGEMENT DISCHARGE SUMMARY PATIENT: TRIP WITT UNIT: [id number] ADM DATE: 05/26/19 AGE: 83 : 36 SEX: F ROOM/BED: D.3707 AUTHOR: MOE,DOC PHYSICIAN: REFERRING PHYSICIAN: MILE YIP MD DATE OF SERVICE: 06/07/19 Discharge Plan Patient Name: TRIP WITT Facility: [facility]:[place] : 1935 Planned Disposition: Prison Facility Anticipated Discharge Date: 06/07/19 Discharge Date: Expected LOS: 12 Initial Reviewer: [id number] Initial Review Date: 05/29/2019 Generated: 06/07/19 6:19 pm Comments DCP- Discharge Planning Updated by [id number]: Teena Wilson on 06/07/19 2:[address] Patient Name: TRIP WITT Encounter No: [id number] : 1935 Primary Insurance: [facility] MEDICARE SOLUTIONS Anticipated DC Date: 06-07-2019 Planned Disposition: Prison Facility External Planned Provider: [facility], MEDICARE REHAB BED DCP follow-up note: CM SPOKE TO HEBRON OF [facility], THEY ARE STILL PENDING RECEIPT OF INSURANCE AUTHORIZATION FOR SKILLED REHAB CARE. CM NOTIFIED PT AND SPOUSE. IMPORTANT MESSAGE FROM MEDICARE PROVIDED AND EXPLAINED. CM WAITING ADMISSION DETERMINATION AND INSURANCE DETERMINATION FOR REHAB ADMISSION TO [facility]. MELONY GASPAR DCP- Discharge Planning Updated by [id number]: Teena Wilson on 06/06/19 8:[address] Patient Name: TRIP WITT Encounter No: [id number] : 1935 Primary Insurance: [facility] MEDICARE SOLUTIONS Anticipated DC Date: 06-07-2019 Planned Disposition: Prison Facility External Planned Provider: [facility], MEDICARE REHAB BED DCP follow-up note: CM FAXED REFERRAL TO [facility] VIA [facility] AT [phone]. CM NOTIFIED HEBRON OF REFERRAL AT [phone]. CM WAITING ADMISSION DETERMINATION AND INSURANCE DETERMINATION FOR REHAB ADMISSION TO [facility]. TEENA WILSON, CASE MANAGEMENT Teena Wilson DCP- Discharge Planning Updated by [id number]: Teena Wilson on 06/06/19 8:[address] Patient Name: TRIP WITT Encounter No: [id number] : 1935 Primary Insurance: [facility] MEDICARE SOLUTIONS Anticipated DC Date: 05-31-2019 Planned Disposition: Prison Facility External Planned Provider: TO BE DETERMINED DCP follow-up note: CM RECEIVED MESSAGE FROM [facility], PT IS OUT OF INSURANCE NETWORK FOR [facility]; OUT OF NETWORK WOULD COST PT $175 PER DAY FOR THE FIRST 20 DAYS OF REHAB. IN NETWORK PROVIDERS ARE [facility]. CM SPOKE TO PT IN ROOM WHO DOES NOT WANT TO GO TO OUT OF NETWORK FACILITY, DIRECTED CM TO SPEAK TO HER SPOUSE. SPOUSE NOT PRESENT. CM CALLED HAL WITT AT HOME, , MULTIPLE TIMES; THERE WAS NO ANSWER AND NO ANSWERING MACHINE TO LEAVE A MESSAGE. CM ASKED BEDSIDE NURSE TO NOTIFY CM IF AND WHEN PT'S SPOUSE ARRIVES. CM WILL CONTINUE TO ATTEMPT TO LOCATE PT'S SPOUSE, HAL WITT, TO DISCUSS REHAB AT IN NETWORK [facility] FACILITY, [facility] OR [facility]. Teena Wilson, CASE MANAGEMENT Appended by Teena Wilson on 06/06/2019 9:13 CDT: LATE ENTRY, 06-06-19, 1710 HOURS: CM MET WITH PT AT NURSES STATION HE ARRIVED TO VISIT WITH PT. CM DISCUSSED INPATIENT DENIAL AND NOTIFIED THAT [facility] ARE OUT OF PT'S INSURANCE NETWORK. CHOICE LISTING DISCUSSED AND REVIEWED. ED ASKED FOR REFERRAL TO [facility]. CHOICE COMPLETED. CM TO SEND REFERRAL TO [facility] FOR REHAB SOON POSSIBLE. TEENA WILSON, CASE MANAGEMENT DCP- Discharge Planning Updated by [id number]: Teena Wilson on 06/05/19 9:[address] Patient Name: TRIP WITT Encounter No: [id number] : 1935 Primary Insurance: [facility] MEDICARE SOLUTIONS Anticipated DC Date: 05-31-2019 Planned Disposition: Prison Facility External Planned Provider: [facility] DCP follow-up note: CM FAXED REFERRAL UDPATE TO [facility] FOR [place] AT [phone]. CM CONTINUES TO WAIT ADMISSION DETERMINATION AND INSURANCE AUTHORIZATION FROM [facility]. MELONY GASPAR DCP- Discharge Planning Updated by [id number]: Teena Wilson on 06/01/19 4:[address] Patient Name: TRIP WITT Encounter No: [id number] : 1935 Primary Insurance: [facility] MEDICARE SOLUTIONS Anticipated DC Date: 05-31-2019 Planned Disposition: Prison Facility External Planned Provider: [facility], MEDICARE REHAB BED DCP follow-up note: CM SPOKE TO DR. ARTIS WHO INFORMED CM THAT INSURANCE HAS RECOMMENDED FPC. CM NOTIFIED PATIENT IN ROOM. CHOICE PREVIOUSLY SIGNED FOR [place]. CM NOTIFIED [facility], , OF REFERRAL. CM FAXED REFERRAL TO [facility] FOR [place] AT [phone]. CM WAITING ADMISSION DETERMINATION FOR REHAB AT [facility]. Teena Wilson CASE MANAGEMENT Appended by Teena Wilson on 06/01/2019 17:58 CDT: CM SPOKE TO KAMRAN OF [facility], , AT [employer] [facility]. SHE IS WORKING A REFERRAL REGARDING PT AND HER SPOUSE; THERE IS NO HOLD BY [facility], KAMRAN WILL CONTINUE TO FOLLOW UP WITH THEM AFTER DISHCARGE. CM PROVIDED KAMRAN WITH MEDICAL RECORDS REQUEST. CM CONTINUES TO WAIT ADMISSION DETERMINATION FROM [facility]. MELONY GASPAR DCP- Discharge Planning Updated by [id number]: Teena Wilson on 05/31/19 5:[address] Patient Name: TRIP WITT Encounter No: [id number] : 1935 Primary Insurance: [facility] MEDICARE SOLUTIONS Anticipated DC Date: 05-31-2019 Planned Disposition: Inpatient Rehab External Planned Provider: [facility] DCP follow-up note: CM SPOKE TO STEVEN OF INPATIENT REHAB AT [facility] MEETING WHO INFORMED TEAM THAT INSURANCE HAS DECLINED INPATIENT REHAB. DR. ARTIS STATES HE WILL DO PEER TO PEER WITH INSURANCE FOR RE CONSIDERATION HE FEELS SHE NEEDS INPATIENT REHAB. RN ILIR EDDS INFORMED CM THAT INSURANCE HAS INDICATED TO HER THAT [facility]PC IS APPROPRIATE FOR PT'S NEEDS. CM CALLED PT'S INSURANCE COMPANY PER DIRECTIONS TO ARRANGE PEER [place] PEER, , EXT [phone], LEFT VERY DETAILED MESSAGE FOR NURSE MARGIE, REQUESTING PEER TO PEER FOR INPATIENT REHAB DENIAL AND LEFT CM AND DR. ARTIS'S PHONE NUMBERS. CM TO MEET WITH PT TO INFORM OF DENIAL AND WAITING RESULTS OF PEER TO PEER FOR INPATIENT REHAB RECONSIDERATION. Teena Wilson, CASE MANAGEMENT Appended by Teena Wilson on 05/31/2019 18:00 CDT: CM MET WITH PT AND SPOUSE IN ROOM INFORMED OF DENIAL BY INSURANCE FOR INPATIENT REHAB. PT AND SPOUSE AGREE THAT PT NEEDS REHAB AND IF PEER TO PEER DOES NOT WORK TO GET PT INTO INPATIENT REHAB HERE, THEY WOULD LIKE [facility], CHOICE SIGNED. CM WAITING ON PEER TO PEER WITH INSURANCE BY DR. ARTIS. IF UNSUCCESSFUL, CM WILL SEND REFERRAL TO [facility] AND [facility], [facility] FOR REHAB. TEENA WILSON, CASE MANAGEMENT DCP- Discharge Planning Updated by [id number]: Teena Wilson on 05/29/19 4:[address] Patient Name: TRIP WITT Admission Status: ER Accout number: [id number] Admission Date: 05-26-2019 : 1935 Admission Diagnosis: Attending: COLIN YIP Current LOS: 3 Anticipated DC Date: 05-30-2019 Planned Disposition: Inpatient Rehab Primary Insurance: [facility] MEDICARE SOLUTIONS PLANNED EXTERNAL PROVIDER: [facility] Discharge Planning Comments: CM RECEIVED INPATIENT REHAB PRESCREENING AND ORDER FOR NEBULIZER AND NEB MEDICATIONS. CM MET WITH PT IN ROOM TO DISCUSS DISCHARGE PLANNING AND NEEDS. PT REPORTS LIVING AT HOME INDEPENDENTLY WITH HER SPOUSE. PT HAS A CANE WITH NO MEDICAL EQUIPMENT PROVIDER PREFERENCE. PT HAS NO OUTSIDE SERVICES ASSISTING IN THE HOME. CM DISCUSSED AVAILABILITY OF HOME HEALTH, REHAB SERVICES AND MEDICAL EQUIPMENT. CM DISCUSSED AVAILABILITY OF REHAB, PROVIDERS AND LOCATIONS. PT WANTS REHAB AT [facility]. IMPORTANT MESSAGE FROM MEDICARE PROVIDED AND EXPLAINED. CHOICE SIGNED FOR [facility]. CM WAITING INSURANCE DETERMINATION FOR INPATIENT REHAB AT [facility]. Control Systems Developer: Teena Wilson DCPIA - Discharge Planning Initial Assessment Updated by [id number]: Teena Wilson on 05/29/19 5:13 pm * Is the patient Alert and Oriented? Yes * How many steps to enter\exit or inside your home? NONE * PCP DR. LEONE * Pharmacy [facility] * Preadmission Environment Home with Family * ADLs Independent * Equipment Cane * Other Equipment NO MEDICAL EQUIPMENT PROVIDER PREFERENCE * List name and contact numbers for known caregivers / representatives who currently or will assist patient after discharge: MONIKA SUGGS, * Verbal permission to speak to the caregivers and representatives has been obtained from the patient. N/A * Community resources currently utilized None * Please name any agencies selected above. NONE * Additional services required to return to the preadmission environment? Yes * Can the patient safely return to the preadmission environment? Yes * Has this patient been hospitalized within the prior 30 days at any hospital? Yes Coverage Notice Reviewer: JASS Wilson Notice Issued Date-Time: 05/29/2019 16:40 Notice Type: IM Discharge Notice Notice Delivered To: Patient Relationship to Patient: Shells Inspector Name: Delivery Method: HAND - Hand Delivered Tory Days: Prior Verbal Notification: Recipient Understood Notice: Yes Recipient Signature: Yes Med Rec Note Co-signed by Attending: Coverage Notice Comment: Reviewer: JASS Wilson Notice Issued Date-Time: 05/29/2019 16:40 Notice Type: Patient Choice Letter Notice Delivered To: Patient Relationship to Patient: Shells Inspector Name: Delivery Method: HAND - Hand Delivered Tory Days: Prior Verbal Notification: Recipient Understood Notice: Yes Recipient Signature: Yes Med Rec Note Co-signed by Attending: Coverage Notice Comment: [facility] Reviewer: JASS Wilson Notice Issued Date-Time: 05/31/2019 13:10 Notice Type: Patient Choice Letter Notice Delivered To: Family Member Relationship to Patient: Spouse Shells Inspector Name: HAL WITT Delivery Method: HAND - Hand Delivered Tory Days: Prior Verbal Notification: Recipient Understood Notice: Yes Recipient Signature: Yes Med Rec Note Co-signed by Attending: Coverage Notice Comment: [facility] Reviewer: [id number] Wilson Notice Issued Date-Time: 06/06/2019 17:15 Notice Type: Patient Choice Letter Notice Delivered To: Family Member Relationship to Patient: Spouse Shells Inspector Name: HAL WITT Delivery Method: HAND - Hand Delivered Tory Days: Prior Verbal Notification: Recipient Understood Notice: Yes Recipient Signature: Med Rec Note Co-signed by Attending: Coverage Notice Comment: RICKIE LAGOS Reviewer: [id number] Wilson Notice Issued Date-Time: 06/07/2019 15:25 Notice Type: IM Discharge Notice Notice Delivered To: Patient Relationship to Patient: Shells Inspector Name: Delivery Method: HAND - Hand Delivered Tory Days: Prior Verbal Notification: Recipient Understood Notice: Yes Recipient Signature: Yes Med Rec Note Co-signed by Attending: Coverage Notice Comment: Last DP export: 06/07/19 2:40 p Patient Name: TRIP WITT Page 60086 at 1720 All edits/amendments must be made on the electronic document DICTATION DATE: 06/07/191718 LOWERATOR OPERATOR: ALVERTO 06/07/191718 RPT#: [id number] DC DATE: STATUS: ADM IN [facility] [address] [place] [address] END OF REPORT
--- NOTE | 2019-06-07 17:28 | MORECARE ---
CASE MANAGEMENT DISCHARGE SUMMARY PATIENT: TRIP WITT UNIT: [id number] ADM DATE: 05/26/19 AGE: 83 : 36 SEX: F ROOM/BED: D.5478 AUTHOR: MOE,DOC PHYSICIAN: REFERRING PHYSICIAN: MILE YIP MD DATE OF SERVICE: 06/07/19 Discharge Plan Patient Name: TRIP WITT Facility: [facility]:[place] : 1935 Planned Disposition: Intermediate Facility Anticipated Discharge Date: 06/07/19 Discharge Date: Expected LOS: 12 Initial Reviewer: [id number] Initial Review Date: 05/29/2019 Generated: 06/07/19 6:28 pm Comments DCP- Discharge Planning Updated by [id number]: Teena Wilson on 06/07/19 4:[address] Patient Name: TRIP WITT Encounter No: [id number] : 1935 Primary Insurance: [facility] MEDICARE SOLUTIONS Anticipated DC Date: 06-07-2019 Planned Disposition: Intermediate Facility External Planned Provider: [facility], MEDICARE REHAB BED DCP follow-up note: CM SPOKE TO [facility] ([place], [place]), THEY ARE STILL PENDING RECEIPT OF INSURANCE AUTHORIZATION FOR SKILLED REHAB CARE. CM NOTIFIED PT AND SPOUSE. IMPORTANT MESSAGE FROM MEDICARE PROVIDED AND EXPLAINED. CM WAITING ADMISSION DETERMINATION AND INSURANCE DETERMINATION FOR REHAB ADMISSION TO [facility]. TEENA WILSON, CASE MANAGEMENT Appended by Teena Wilson on 06/07/2019 17:24 CDT: CM RECEIVED MESSAGE FROM [facility] ([place], [place]), THEY HAVE AUTHORIZATION FOR REHAB FROM INSURANCE AND WILL ACCEPT TODAY. CM NOTIFED PT IN ROOM, PT WILLING FOR REHAB TODAY. CM NOTIFED PT'S SPOUSE VIA PHONE, HE WILL GO TO [facility] TO ASSIST WITH ADMISSION PAPERWORK. CM NOTIFIED ISMAEL GONZALEZ. CM RECEIVED DISCHARGE ORDERS. CM FAXED DISCHARGE INFORMATION TO [facility] AT [phone]. CM RECEIVED MESSAGE FROM [facility] THAT [facility] IS ON [place] AND FAMILY CANNOT COME INTO FACILITY DURING PT'S STAY. CM ATTEMPTED TO CALL PT'S SPOUSE AT HOME, HE HAD ALREADY LEFT. CM NOTIFIED [facility] WHO WILL NOTIFY FACILITY STAFF TO EXPLAIN VISITOR RESTRICTIONS TO PT'S SPOUSE UPON HIS ARRIVAL TO FACILITY. NURSE REPORT TO BE CALLED TO [facility], . MELONY GASPAR DCP- Discharge Planning Updated by [id number]: Teena Wilson on 06/06/19 8:[address] Patient Name: TRIP WITT Encounter No: [id number] : 1935 Primary Insurance: [facility] MEDICARE SOLUTIONS Anticipated DC Date: 06-07-2019 Planned Disposition: Intermediate Facility External Planned Provider: [facility], MEDICARE REHAB BED DCP follow-up note: CM FAXED REFERRAL TO [facility] VIA [facility] AT [phone]. CM NOTIFIED [facility] OF REFERRAL AT [phone]. CM WAITING ADMISSION DETERMINATION AND INSURANCE DETERMINATION FOR REHAB ADMISSION TO [facility]. TEENA WILSON, CASE MANAGEMENT Teena Wilson DCP- Discharge Planning Updated by [id number]: Teena Wilson on 06/06/19 8:[address] Patient Name: TRIP WITT Encounter No: [id number] : 1935 Primary Insurance: [facility] MEDICARE SOLUTIONS Anticipated DC Date: 05-31-2019 Planned Disposition: Intermediate Facility External Planned Provider: TO BE DETERMINED DCP follow-up note: CM RECEIVED MESSAGE FROM [facility], PT IS OUT OF INSURANCE NETWORK FOR [facility] AND [facility]; OUT OF NETWORK WOULD COST PT $175 PER DAY FOR THE FIRST 20 DAYS OF REHAB. IN NETWORK PROVIDERS ARE [facility] AND [facility]. CM SPOKE TO PT IN ROOM WHO DOES NOT WANT TO GO TO OUT OF NETWORK FACILITY, DIRECTED CM TO SPEAK TO HER SPOUSE. SPOUSE NOT PRESENT. CM CALLED HAL WITT AT HOME, , MULTIPLE TIMES; THERE WAS NO ANSWER AND NO ANSWERING MACHINE TO LEAVE A MESSAGE. CM ASKED BEDSIDE NURSE TO NOTIFY CM IF AND WHEN PT'S SPOUSE ARRIVES. CM WILL CONTINUE TO ATTEMPT TO LOCATE PT'S SPOUSE, HAL WITT, TO DISCUSS REHAB AT IN NETWORK [facility]PC FACILITY, [facility] OR [facility]. Teena Wilson, CASE MANAGEMENT Appended by Teena Wilson on 06/06/2019 9:13 CDT: LATE ENTRY, 06-06-19, 1710 HOURS: CM MET WITH PT AT NURSES STATION HE ARRIVED TO VISIT WITH PT. CM DISCUSSED INPATIENT DENIAL AND NOTIFIED THAT [facility] AND [facility] ARE OUT OF PT'S INSURANCE NETWORK. CHOICE LISTING DISCUSSED AND REVIEWED. ED ASKED FOR REFERRAL TO [facility]. CHOICE COMPLETED. CM TO SEND REFERRAL TO [facility] FOR REHAB SOON POSSIBLE. TEENA WILSON CASE MANAGEMENT DCP- Discharge Planning Updated by [id number]: Teena Wilson on 06/05/19 9:[address] Patient Name: TRIP WITT Encounter No: [id number] : 1935 Primary Insurance: [facility] MEDICARE SOLUTIONS Anticipated DC Date: 05-31-2019 Planned Disposition: Intermediate Facility External Planned Provider: [facility], MEDICARE REHAB BED DCP follow-up note: CM FAXED REFERRAL UDPATE TO [facility] AT [phone]. CM CONTINUES TO WAIT ADMISSION DETERMINATION AND INSURANCE AUTHORIZATION FROM [facility]. MELONY GASPAR DCP- Discharge Planning Updated by [id number]: Teena Wilson on 06/01/19 4:[address] Patient Name: TRIP WITT Encounter No: [id number] : 1935 Primary Insurance: [facility] MEDICARE SOLUTIONS Anticipated DC Date: 05-31-2019 Planned Disposition: Intermediate Facility External Planned Provider: [facility], MEDICARE REHAB BED DCP follow-up note: CM SPOKE TO DR. ARTIS WHO INFORMED CM THAT INSURANCE HAS RECOMMENDED [facility]PC. CM NOTIFIED PATIENT IN ROOM. CHOICE PREVIOUSLY SIGNED FOR [facility]. CM NOTIFIED [facility], , OF REFERRAL. CM FAXED REFERRAL TO [facility] AT [phone]. CM WAITING ADMISSION DETERMINATION FOR REHAB AT [facility]. Teena Wilson, CASE MANAGEMENT Appended by Teena Wilson on 06/01/2019 17:58 CDT: ILIR SPOKE TO KAMRAN OF [facility], , AT NURSES STATION. SHE IS WORKING A REFERRAL REGARDING PT AND HER SPOUSE; THERE IS NO HOLD BY [facility]ULT [employer], KAMRAN WILL CONTINUE TO FOLLOW UP WITH THEM AFTER DISHCARGE. CM PROVIDED KAMRAN WITH MEDICAL RECORDS REQUEST. CM CONTINUES TO WAIT ADMISSION DETERMINATION FROM [facility] MELONY GASPAR MANAGEMENT DCP- Discharge Planning Updated by [id number]: Teena Wilson on 05/31/19 5:[address] Patient Name: TRIP WITT Encounter No: [id number] : 1935 Primary Insurance: [facility] MEDICARE SOLUTIONS Anticipated DC Date: 05-31-2019 Planned Disposition: Inpatient Rehab External Planned Provider: [facility] DCP follow-up note: CM SPOKE TO STEVEN OF INPATIENT REHAB AT [facility] MEETING WHO INFORMED TEAM THAT INSURANCE HAS DECLINED INPATIENT REHAB. DR. ARTIS STATES HE WILL DO PEER TO PEER WITH INSURANCE FOR RE CONSIDERATION HE FEELS SHE NEEDS INPATIENT REHAB. RN CM EDDS INFORMED CM THAT INSURANCE HAS INDICATED TO HER THAT [facility]PC IS APPROPRIATE FOR PT'S NEEDS. CM CALLED PT'S INSURANCE COMPANY PER DIRECTIONS TO ARRANGE PEER [place] PEER, , EXT [phone], LEFT VERY DETAILED MESSAGE FOR NURSE HANSON, REQUESTING PEER TO PEER FOR INPATIENT REHAB DENIAL AND LEFT CM AND DR. ARTIS'S PHONE NUMBERS. CM TO MEET WITH PT TO INFORM OF DENIAL AND WAITING RESULTS OF PEER TO PEER FOR INPATIENT REHAB RECONSIDERATION. Teena Wilson, CASE MANAGEMENT Appended by Teena Wilson on 05/31/2019 18:00 CDT: CM MET WITH PT AND SPOUSE IN ROOM INFORMED OF DENIAL BY INSURANCE FOR INPATIENT REHAB. PT AND SPOUSE AGREE THAT PT NEEDS REHAB AND IF PEER TO PEER DOES NOT WORK TO GET PT INTO INPATIENT REHAB HERE, THEY WOULD LIKE [facility]FERRAL TO [facility], CHOICE SIGNED. CM WAITING ON PEER TO PEER WITH INSURANCE BY DR. ARTIS. IF UNSUCCESSFUL, CM WILL SEND REFERRAL TO [facility] AND [facility], [facility] FOR REHAB. MELONY GASPAR DCP- Discharge Planning Updated by [id number]: Teena Wilson on 05/29/19 4:[address] Patient Name: TRIP WITT Admission Status: ER Accout number: [id number] Admission Date: 05-26-2019 : 1935 Admission Diagnosis: Attending: COLIN YIP Current LOS: 3 Anticipated DC Date: 05-30-2019 Planned Disposition: Inpatient Rehab Primary Insurance: [facility] MEDICARE SOLUTIONS PLANNED EXTERNAL PROVIDER: [facility] Discharge Planning Comments: CM RECEIVED INPATIENT REHAB PRESCREENING AND ORDER FOR NEBULIZER AND NEB MEDICATIONS. CM MET WITH PT IN ROOM TO DISCUSS DISCHARGE PLANNING AND NEEDS. PT REPORTS LIVING AT HOME INDEPENDENTLY WITH HER SPOUSE. PT HAS A CANE WITH NO MEDICAL EQUIPMENT PROVIDER PREFERENCE. PT HAS NO OUTSIDE SERVICES ASSISTING IN THE HOME. CM DISCUSSED AVAILABILITY OF HOME HEALTH, REHAB SERVICES AND MEDICAL EQUIPMENT. CM DISCUSSED AVAILABILITY OF REHAB, PROVIDERS AND LOCATIONS. PT WANTS REHAB AT [facility]. IMPORTANT MESSAGE FROM MEDICARE PROVIDED AND EXPLAINED. CHOICE SIGNED FOR [facility] INPAT[facility]. CM WAITING INSURANCE DETERMINATION FOR INPATIENT REHAB AT [facility]. Microbiology Technician: Teena Wilson DCPIA - Discharge Planning Initial Assessment Updated by [id number]: Teena Wilson on 05/29/19 5:13 pm * Is the patient Alert and Oriented? Yes * How many steps to enter\exit or inside your home? NONE * PCP DR. LEONE * Pharmacy [facility] * Preadmission Environment Home with Family * ADLs Independent * Equipment Cane * Other Equipment NO MEDICAL EQUIPMENT PROVIDER PREFERENCE * List name and contact numbers for known caregivers / representatives who currently or will assist patient after discharge: HAL WITT, SPOUSE, * Verbal permission to speak to the caregivers and representatives has been obtained from the patient. N/A * Community resources currently utilized None * Please name any agencies selected above. NONE * Additional services required to return to the preadmission environment? Yes * Can the patient safely return to the preadmission environment? Yes * Has this patient been hospitalized within the prior 30 days at any hospital? Yes Coverage Notice Reviewer: [id number] Sravan Wilson Notice Issued Date-Time: 06/06/2019 17:15 Notice Type: Patient Choice Letter Notice Delivered To: Family Member Relationship to Patient: Spouse Insurance Examining Clerk Name: ED EDUAR Delivery Method: HAND - Hand Delivered Tory Days: Prior Verbal Notification: Recipient Understood Notice: Yes Recipient Signature: Med Rec Note Co-signed by Attending: Coverage Notice Comment: RICKIE LAGOS Reviewer: [id number] Sravan Wilson Notice Issued Date-Time: 05/31/2019 13:10 Notice Type: Patient Choice Letter Notice Delivered To: Family Member Relationship to Patient: Spouse Insurance Examining Clerk Name: ED EDUAR Delivery Method: HAND - Hand Delivered Tory Days: Prior Verbal Notification: Recipient Understood Notice: Yes Recipient Signature: Yes Med Rec Note Co-signed by Attending: Coverage Notice Comment: [facility] Reviewer: [id number] Wilson Notice Issued Date-Time: 05/29/2019 16:40 Notice Type: Patient Choice Letter Notice Delivered To: Patient Relationship to Patient: Insurance Examining Clerk Name: Delivery Method: HAND - Hand Delivered Tory Days: Prior Verbal Notification: Recipient Understood Notice: Yes Recipient Signature: Yes Med Rec Note Co-signed by Attending: Coverage Notice Comment: [facility] Reviewer: JASS Wilson Notice Issued Date-Time: 06/07/2019 15:25 Notice Type: IM Discharge Notice Notice Delivered To: Patient Relationship to Patient: Insurance Examining Clerk Name: Delivery Method: HAND - Hand Delivered Tory Days: Prior Verbal Notification: Recipient Understood Notice: Yes Recipient Signature: Yes Med Rec Note Co-signed by Attending: Coverage Notice Comment: Reviewer: JASS Wilson Notice Issued Date-Time: 05/29/2019 16:40 Notice Type: IM Discharge Notice Notice Delivered To: Patient Relationship to Patient: Insurance Examining Clerk Name: Delivery Method: HAND - Hand Delivered Tory Days: Prior Verbal Notification: Recipient Understood Notice: Yes Recipient Signature: Yes Med Rec Note Co-signed by Attending: Coverage Notice Comment: Last DP export: 06/07/19 4:20 p Patient Name: TRIP WITT Page 44542 at 1728 All edits/amendments must be made on the electronic document DICTATION DATE: 06/07/191727 SLOT HOST: ALVERTO 06/07/191727 RPT#: [id number] DC DATE: STATUS: ADM IN [facility] [address] [place] [address] END OF REPORT
--- NOTE | 2019-06-07 17:36 | NUR ---
CALLED AND GAVE REPORT TO LAVERN DECKER AT THE [facility]. TELEMTRY DC'D. DISCHARGE INSTRUCTIONS GIVEN TO PT. CHART COPY SIGNED. AWARE OF PT'S BEING TAKEN TO THE [facility]. PT HAS NO BELOGNINGS HERE. PT TAKEN DOWN VIA WC BY THE [facility] HUMAN RESOURCES ASSOCIATE.
--- NOTE | 2019-06-07 17:36 | NUR ---
CALLED AND GAVE REPORT TO LAVERN DECKER AT THE [facility]. TELEMTRY [employer]. DISCHARGE INSTRUCTIONS FAXED TO [facility]. PT CONFUSED AND NOT IN ROOM TO SIGN DISCHARGE PAPERS. AWARE OF PT'S BEING TAKEN TO THE [facility]. PT HAS NO BELOGNINGS HERE. PT TAKEN DOWN VIA WC BY THE [facility] TELESALES MANAGER.
== END 2019-06-07 17:38 | DRG 683 ==
LOC: D.ER 19:07 → EDBD 19:07 → D.M2 21:29
PROVIDERS: Emergency Medicine; Family Medicine; Internal Medicine Nephrology; ADMIT Emergency Medicine; ATTEND Emergency Medicine
DX: N17.9 Acute kidney failure, unspecified (principal); N39.0 Urinary tract infection, site not specified; I48.91 Unspecified atrial fibrillation; I10 Essential (primary) hypertension; D64.9 Anemia, unspecified; B96.20 Unspecified Escherichia coli [E. coli] as the cause of diseases classified elsewhere

== ENCOUNTER 2019-08-01 17:53 | Inpatient (IN) | payer MEDICARE ==
[~2019-08-01] VITALS: Ht 170.2 cm; Wt 82.1 kg
[~2019-08-01 17:53] MED LIST: ASPIRIN EC81 M1 PO; CARDIZEM CD180 MG PO; CARDIZEM30 MG PO; CELEXA10 MG PO; METOPROLOL TART25 MG PO; METOPROLOL TART50 MG PO
[2019-08-01 18:35] LABS: BASOPHILS 0.3 % (0-2); EOSINOPHILS 1.8 % (0-7); HEMATOCRIT 39.9 % (36.0-48.0); HEMOGLOBIN 12.3 g/dL (12-16); IMMATURE GRANULOCYTES 0.8 % (0-5); MCH 31.9 pg (26.0-34.0); MCHC 30.8 g/dL (31.0-37.0); MCV 103.4 fL (80.0-100.0); MEAN PLATELET VOLUME 9.9 fL (7.4-10.4); MONOCYTES 10.7 % (2-11); NEUTROPHILS 61.4 % (40-80); PLATELET COUNT 262 10x3/uL (130-400); RBC 3.86 10x6/uL (4.00-5.40); RDW 16.5 % (11.5-14.5); WBC 7.3 10x3/uL (4.8-10.8)
[2019-08-01 18:44] LABS: APTT 22.4 SECONDS (22.8-39.4); INR 1.09 (0.85-1.17); PROTIME 14.1 SECONDS (11.6-15.0)
[2019-08-01 18:46] LABS: CALC OSMOLALITY 291 mosm/kg (275-300); CALCIUM 8.9 mg/dL (8.5-10.1); CARBON DIOXIDE 25.5 mmol/L (21.0-32.0); CHLORIDE - SERUM 107 mmol/L (98-107); CREATININE - SERUM 1.8 mg/dL (0.6-1.3); GLUCOSE 94 mg/dL (74-106); SODIUM 141 mmol/L (136-145); UREA NITROGEN 43 mg/dL (7-18); eGFR NON AFRICAN AMERICAN 28 mL/min (90-120)
[2019-08-01 19:01] VITALS: BP 162/127
[2019-08-01 19:03] LABS: ALBUMIN 3.5 g/dL (3.4-5.0); ALKALINE PHOSPHATASE 220 U/L (30-120); ALT (SGPT) 98 U/L (10-68); CKMB 1.8 U/L (0.0-3.6); CREATINE KINASE 68 UL (21-215); MAGNESIUM - SERUM 1.9 mg/dL (1.8-2.4); PROTEIN - SERUM 6.9 g/dL (6.4-8.2)
[2019-08-01 19:06] LABS: TROPONIN-I < 0.017 ng/mL (0.000-0.060)
--- NOTE | 2019-08-01 20:00 | NUR ---
AFTER SEVERAL FAILED ATTEMPTS FOR IV ACCESS EDP NOTIFIED FOR EJ. PT IS RIGHT ARM RESERVED.
[2019-08-01 20:01] VITALS: BP 155/113
[2019-08-01 20:41] VITALS: BP 155/113
[2019-08-01 21:00] VITALS: BP 168/93
[2019-08-01 21:22] VITALS: BP 188/99
--- NOTE | 2019-08-01 21:55 | NUR ---
KATELYNN GUSTAFSON [phone]
--- NOTE | 2019-08-01 22:04 | NUR ---
RECIEVED TO ROOM 2117 FROM ER VIA STRETCHER. PT A&O. RESPERATIONS EVEN ON RA.PLACED ON TELEMETRY, 98 CONTROLLED A-FIB. IV TO RIGHT EJ WITH CARDIZEM DRIP AT 10 CC/HR. HISTORY AND MED REC OBTAINED. PT DENIES PAIN OR NEEDS, BED LOW, CL IN REACH.
--- NOTE | 2019-08-01 22:53 | NUR ---
UP WITH ASSIST TO BR.
[2019-08-01 23:57] VITALS: BMI 28.4
--- NOTE | 2019-08-02 01:02 | NUR ---
RESTING WITH EYES CLOSED, RESPERATONS EVEN, NO S/S DISTRESS NOTED.
[2019-08-02 04:00] VITALS: BP 154/90
[2019-08-02 04:52] LABS: BASOPHILS 0.5 % (0-2); HEMATOCRIT 37.1 % (36.0-48.0); HEMOGLOBIN 11.4 g/dL (12-16); IMMATURE GRANULOCYTES 0.3 % (0-5); LYMPHOCYTES 27.7 % (15-50); MCH 31.9 pg (26.0-34.0); MCHC 30.7 g/dL (31.0-37.0); MCV 103.9 fL (80.0-100.0); MEAN PLATELET VOLUME 9.7 fL (7.4-10.4); MONOCYTES 9.8 % (2-11); NEUTROPHILS 59.7 % (40-80); PLATELET COUNT 234 10x3/uL (130-400); RBC 3.57 10x6/uL (4.00-5.40); RDW 16.5 % (11.5-14.5); WBC 6.5 10x3/uL (4.8-10.8)
[2019-08-02 05:28] LABS: ALKALINE PHOSPHATASE 192 U/L (30-120); ALT (SGPT) 77 U/L (10-68); BILIRUBIN - TOTAL 0.76 mg/dL (0.2-1.3); CALC OSMOLALITY 283 mosm/kg (275-300); CALCIUM 8.7 mg/dL (8.5-10.1); CARBON DIOXIDE 24.1 mmol/L (21.0-32.0); CHLORIDE - SERUM 108 mmol/L (98-107); CKMB 1.6 U/L (0.0-3.6); CREATINE KINASE 36 UL (21-215); CREATININE - SERUM 1.7 mg/dL (0.6-1.3); GLUCOSE 78 mg/dL (74-106); MAGNESIUM - SERUM 1.8 mg/dL (1.8-2.4); PHOSPHOROUS 3.2 mg/dL (2.5-4.9); POTASSIUM - SERUM 4.4 mmol/L (3.5-5.1); PROTEIN - SERUM 5.9 g/dL (6.4-8.2); SODIUM 138 mmol/L (136-145); T4 THYROXIN - FREE 1.12 ng/dL (0.76-1.46); THYROID STIMULATING HORMONE 3.09 uIU/mL (0.36-3.74); TROPONIN-I < 0.017 ng/mL (0.000-0.060); UREA NITROGEN 37 mg/dL (7-18); eGFR NON AFRICAN AMERICAN 30 mL/min (90-120)
--- NOTE | 2019-08-02 07:10 | NUR ---
REPORT RECEIVED FROM SENIOR SYSTEMS DEVELOPER AND PATIENT CARE ASSUMED. PATIENT LAYING IN BED ON BACK WITH EYES CLOSED AND BREATHING EVENLY. PATIENT AROUSES TO VOICE EASILY. BP 159/114. REPORTED THAT PATIENT TAKES METOPROLOL 50 MG BID BUT HOME MEDS HAVE NOT BEEN RESTARTED. CALLED ISMAEL PIMENTEL AND RECIEVED ORDER TO RE-START METOPROLOL 50 MG BID. WILL CONTINUE WITH PLAN OF CARE. SRUP X 2 BED IN LOW POSITION AND CALL LIGHT IN REACH.
--- NOTE | 2019-08-02 08:20 | NUR ---
PATIENT HR TO 132 WITH CARDIAZEM DRIP AT 5ML/HR. SPOKE WITH DR LINDA RECIEVED ORDER TO INCREASE TO 10/ML/HR. DOSAGE INCREASED. PATIENT CONVERTED BY TO CAFIB AT 95. PATIENT DENIES ANY NEEDS OR PAIN WILL CONTINUE TO MONITOR. SR UP X 2 BED IN LOW POSITION AND CALL LIGHT IN REACH.
[2019-08-02 08:58] VITALS: BP 159/114
--- NOTE | 2019-08-02 10:00 | NUR ---
PATIENT IS STABLE AND VSS. PATIENT DENIES ANY NEEDS OR PAIN. PATIENT TO [facility]UC MED FOR LUNG SCAN VIA WC ACCOMPANIED BY NUC MED STAFF.
[2019-08-02 13:21] VITALS: BP 146/89
--- NOTE | 2019-08-02 14:07 | NUR ---
PATIENT SITITNG UP IN BED WITH EYES CLOSED AND BREATHING EVENLY. PATIENT IS STABLE AND VSS. WILL CONTINUE TO MONITOR. SR U P X 2 BED IN LOW POSITION AND CALL LIGHT IN REACH.
--- NOTE | 2019-08-02 14:42 | NUR ---
PATIENT SON CALLED. ANSWERED QUESTIONS TO PATIENT SATISFACTION.
[2019-08-02 18:53] VITALS: BP 137/83
--- NOTE | 2019-08-02 19:27 | NUR ---
RECEIVED BEDSIDE REPORT. PATIENT IS ALERT AND PLEASANTLY COMFUSED. RESPIRATIONS ARE EVEN AND UNLABORED. NO S/S OF DISTRESS. NO C/O PAIN. CALL LIGHT WITHIN REACH. WILL CPOC.
[2019-08-02 20:00] VITALS: BP 145/84
[2019-08-03] VITALS: BP 133/74
[2019-08-03 04:00] VITALS: BP 139/97
[2019-08-03 04:57] LABS: BASOPHILS 0.5 % (0-2); EOSINOPHILS 2.6 % (0-7); HEMATOCRIT 34.2 % (36.0-48.0); HEMOGLOBIN 10.5 g/dL (12-16); IMMATURE GRANULOCYTES 0.2 % (0-5); LYMPHOCYTES 22.3 % (15-50); MCH 31.3 pg (26.0-34.0); MCHC 30.7 g/dL (31.0-37.0); MEAN PLATELET VOLUME 9.6 fL (7.4-10.4); MONOCYTES 12.9 % (2-11); NEUTROPHILS 61.5 % (40-80); PLATELET COUNT 230 10x3/uL (130-400); RBC 3.36 10x6/uL (4.00-5.40); RDW 16.4 % (11.5-14.5); WBC 6.1 10x3/uL (4.8-10.8)
[2019-08-03 05:02] LABS: MCV 101.8 fL (80.0-100.0)
[2019-08-03 05:11] LABS: ANION GAP 14.3 mmol/L (8-16); CALCIUM 8.3 mg/dL (8.5-10.1); CARBON DIOXIDE 22.8 mmol/L (21.0-32.0); CREATININE - SERUM 1.9 mg/dL (0.6-1.3); MAGNESIUM - SERUM 1.7 mg/dL (1.8-2.4); POTASSIUM - SERUM 4.1 mmol/L (3.5-5.1)
[2019-08-03 09:09] LABS: THYROGLOBULIN ANTIBODY <1.0 IU/mL (0.0-0.9); THYROID PEROXIDASE ABS <9 IU/mL (0-34)
[2019-08-03 09:32] VITALS: BP 110/78
[2019-08-03 13:39] VITALS: BP 111/78
[2019-08-03 16:00] VITALS: BP 145/102
--- NOTE | 2019-08-03 18:10 | MORECARE ---
CASE MANAGEMENT DISCHARGE SUMMARY PATIENT: TRIP WITT UNIT: [id number] ADM DATE: 08/01/19 AGE: 83 : 36 SEX: F ROOM/BED: D.3135 AUTHOR: MOE,DOC PHYSICIAN: REFERRING PHYSICIAN: CONNOR GLEZ DO DATE OF SERVICE: 08/03/19 Discharge Plan Patient Name: TRIP WITT Facility: [facility]:[place] : 1935 Planned Disposition: Home Anticipated Discharge Date: Discharge Date: Expected LOS: 0 Initial Reviewer: [email or web address] Initial Review Date: 08/01/2019 Generated: 08/03/19 7:09 pm Comments DCP- Discharge Planning Updated by [id number]: Socorro Ramos on 08/03/19 5:[address] Patient is slightly confused. PCP: Dr. Banks. Pharmacy: [facility]. Lives independently, home with spouse. DME: cheryl goyal. Denies steps at home. Emergency contact: Ed Able [phone] (out of service). Caleb Witt (son) [phone]. Verbal permission to speak with her son, Caleb Witt. Denies use of community resources. Patient would benefit use of HHS, has been with [facility] in the past. Denies being hospitalized within past 30 days. CM attempted to reach patient's son, but his phone was busy. CM will continue to follow and assist PRN. DCPIA - Discharge Planning Initial Assessment Updated by [id number]: Socorro Ramos on 08/03/19 6:08 pm * Is the patient Alert and Oriented? No * How many steps to enter\exit or inside your home? * PCP Dr. Banks * Pharmacy [facility] * Preadmission Environment Home with Family * ADLs Independent * Equipment Cane Walker * List name and contact numbers for known caregivers / representatives who currently or will assist patient after discharge: Caleb Witt (son) [phone] * Verbal permission to speak to the caregivers and representatives has been obtained from the patient. Yes * Please name any agencies selected above. [facility] in past * Additional services required to return to the preadmission environment? Yes * Can the patient safely return to the preadmission environment? Yes * Has this patient been hospitalized within the prior 30 days at any hospital? No Patient Name: TRIP WITT Page [id number] at 1810 All edits/amendments must be made on the electronic document DICTATION DATE: 08/03/191808 LAWN CARE TECHNICIAN: ALVERTO 08/03/191808 RPT#: [id number] DC DATE: STATUS: ADM IN [facility] [address] [place] [address] END OF REPORT
--- NOTE | 2019-08-03 19:54 | NUR ---
RECEIVED BEDSIDE REPORT. PATIENT IS ALERT AND ORIENTED, RESTING COMFORTABLY IN BED. RESPIRATIONS ARE EVEN AND UNLABORED. NO S/S OF DISTRESS. NO C/O PAIN. CALL LIGHT WITHIN REACH. WILL CPOC.
[2019-08-03 20:00] VITALS: BP 130/106
[2019-08-04 04:00] VITALS: BP 151/95
[2019-08-04 06:46] LABS: BASOPHILS 0.4 % (0-2); EOSINOPHILS 2.7 % (0-7); HEMATOCRIT 34.2 % (36.0-48.0); HEMOGLOBIN 10.7 g/dL (12-16); IMMATURE GRANULOCYTES 0.2 % (0-5); LYMPHOCYTES 25.5 % (15-50); MCH 31.5 pg (26.0-34.0); MCHC 31.3 g/dL (31.0-37.0); MCV 100.6 fL (80.0-100.0); MEAN PLATELET VOLUME 9.4 fL (7.4-10.4); MONOCYTES 12.2 % (2-11); PLATELET COUNT 204 10x3/uL (130-400); RDW 16.1 % (11.5-14.5); WBC 5.5 10x3/uL (4.8-10.8)
[2019-08-04 06:59] LABS: CALCIUM 7.9 mg/dL (8.5-10.1); CARBON DIOXIDE 22.2 mmol/L (21.0-32.0); CREATININE - SERUM 1.8 mg/dL (0.6-1.3); POTASSIUM - SERUM 4.2 mmol/L (3.5-5.1)
[2019-08-04 07:43] VITALS: BP 151/98
[2019-08-04 11:51] VITALS: BP 150/96
[2019-08-04 12:55] VITALS: Ht 170.2 cm; Wt 82.1 kg
--- NOTE | 2019-08-04 19:30 | NUR ---
INITIAL ROUNDS AND ASSESSMENT COMPLETED. PT RESTING WITH NO DISTRESS. CPOC.
[2019-08-04 20:16] VITALS: BP 141/85
--- NOTE | 2019-08-04 23:03 | NUR ---
BEDTIME MEDS GIVEN. PT ROUSES UP EASILY. SWALLOWS PILLS WITHOUT DIFFICULTY. LOVENOX ADMINISTERED. ENCOURAGED PT TO KEEP SELF COVERED, SHE KEEPS THROWING ALL COVERS TO FOOT OF BED AND LAYING WITH SELF EXPOSED.
[2019-08-04 23:37] VITALS: BP 148/88
--- NOTE | 2019-08-05 03:15 | NUR ---
PT HAS BEEN ASSISTED TO THE BATHROOM TO VOID X 5 TIMES SINCE 2099.
[2019-08-05 04:05] VITALS: BP 145/84
[2019-08-05 05:17] LABS: BASOPHILS 0.4 % (0-2); EOSINOPHILS 3.1 % (0-7); HEMATOCRIT 37.1 % (36.0-48.0); HEMOGLOBIN 11.6 g/dL (12-16); IMMATURE GRANULOCYTES 0.4 % (0-5); LYMPHOCYTES 18.5 % (15-50); MCH 31.6 pg (26.0-34.0); MCHC 31.3 g/dL (31.0-37.0); MCV 101.1 fL (80.0-100.0); MEAN PLATELET VOLUME 9.8 fL (7.4-10.4); MONOCYTES 15.6 % (2-11); PLATELET COUNT 220 10x3/uL (130-400); RBC 3.67 10x6/uL (4.00-5.40); RDW 15.7 % (11.5-14.5); WBC 5.5 10x3/uL (4.8-10.8)
[2019-08-05 05:30] LABS: ANION GAP 10.3 mmol/L (8-16); CALCIUM 8.3 mg/dL (8.5-10.1); CARBON DIOXIDE 26.9 mmol/L (21.0-32.0); CREATININE - SERUM 1.6 mg/dL (0.6-1.3); MAGNESIUM - SERUM 1.8 mg/dL (1.8-2.4); PHOSPHOROUS 2.7 mg/dL (2.5-4.9); POTASSIUM - SERUM 4.2 mmol/L (3.5-5.1)
--- NOTE | 2019-08-05 06:43 | NUR ---
PT RESTING. BED ALARM IN PLACE. REPORT TO ONCOMING NURSE.
--- NOTE | 2019-08-05 07:47 | NUR ---
PT RESTING COMFORTABLY IN BED, WITH EYES CLOSED, EASILY AROUSES TO VOICE. PT A/O TO PERSON ONLY. LT WRIST IV SL. MONITOR SHOWING CAF WITH RATE OF 69. PT DENIES ANY NEEDS AT THIS TIME. CALL LIGHT IN REACH, NAD NOTED,W ILL CONTINUE TO MONITOR.
--- NOTE | 2019-08-05 08:00 | NUR ---
HELPED PT TO BATHROOM AND BACK TO BED. TOSIN ALARM ON, BEDSIDE RAILS X2, WILL CONTINUE TO MONITOR.
[2019-08-05 09:40] VITALS: BP 138/96
--- NOTE | 2019-08-05 11:53 | NUR ---
TALKED TO PT'S WHO STATES HE IS HERE TO PICK PT UP. INFORMED PT'S THAT SHE DOES NOT HAVE ANY OTHERS TO D/C OF RIGHT NOW. THAT DOCTOR STILL NEEDS TO ROUND ON HER TODAY. WILL TALK TO DOCTOR AND CALL HIM BACK.
[2019-08-05 13:12] VITALS: BP 158/87
[2019-08-05] MEDS ORDERED: AMIODARONE HCL200 MG PO (14:28)
[2019-08-05] MEDS ORDERED: LANOXIN125 MCG PO (14:31)
--- NOTE | 2019-08-05 15:06 | NUR ---
PAGED DR. SARAVIA, WAITING BROADBAND INSTALLER BACK.
--- NOTE | 2019-08-05 15:13 | MORECARE ---
CASE MANAGEMENT DISCHARGE SUMMARY PATIENT: TRIP WITT UNIT: [id number] ADM DATE: 08/01/19 AGE: 83 : 36 SEX: F ROOM/BED: D.5809 AUTHOR: SAUL ROSA PHYSICIAN: REFERRING PHYSICIAN: CONNOR GLEZ DO DATE OF SERVICE: 08/05/19 Discharge Plan Patient Name: TRIP WITT Facility: [facility]:[place] : 1935 Planned Disposition: Home Anticipated Discharge Date: Discharge Date: Expected LOS: 0 Initial Reviewer: [email or web address] Initial Review Date: 08/01/2019 Generated: 08/05/19 4:12 pm Comments DCP- Discharge Planning Updated by [email or web address]: Heavenly Dean on 08/05/19 2:[address] Patient Name: TRIP WITT Encounter No: [id number] : 1935 Primary Insurance: [facility] MEDICARE SOLUTIONS Anticipated DC Date: Planned Disposition: Home External Planned Provider: : DCP follow-up note: Patient in agreement with discharge plan. No changes to plan. Declines home health. States is going home with her spouse. Case management will follow and assist as needed. Heavenly Dean DCP- Discharge Planning Updated by [email or web address]: Socorro Ramos on 08/03/19 5:[address] Patient is slightly confused. PCP: Dr. Banks. Pharmacy: [facility]. Lives independently, home with spouse. DME: walker cane. Denies steps at home. Emergency contact: Ed Able [phone] (out of service). Caleb Witt (son) [phone]. Verbal permission to speak with her son, Caleb Witt. Denies use of community resources. Patient would benefit use of [facility], has been with [facility] in the past. Denies being hospitalized within past 30 days. CM attempted to reach patient's son, but his phone was busy. CM will continue to follow and assist PRN. DCPIA - Discharge Planning Initial Assessment Updated by [email or web address]: Socorro Ramos on 08/03/19 6:08 pm * Is the patient Alert and Oriented? No * How many steps to enter\exit or inside your home? * PCP Dr. Banks * Pharmacy [facility] * Preadmission Environment Home with Family * ADLs Independent * Equipment Cane Walker * List name and contact numbers for known caregivers / representatives who currently or will assist patient after discharge: Caleb Witt (son) [phone] * Verbal permission to speak to the caregivers and representatives has been obtained from the patient. Yes * Please name any agencies selected above. [facility] in past * Additional services required to return to the preadmission environment? Yes * Can the patient safely return to the preadmission environment? Yes * Has this patient been hospitalized within the prior 30 days at any hospital? 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
--- NOTE | 2019-08-05 15:45 | NUR ---
OK TO DISCHARGE FROM CARDIOLOGY STANDPOINT.
--- NOTE | 2019-08-05 15:54 | NUR ---
CALLED PT'S BUT DID NOT GET AN ANSWER, WILL TRY AGAIN IN 5MIN.
--- NOTE | 2019-08-05 16:11 | NUR ---
PROVIDED VERBAL AND WRITTEN DISCHARGE TEACHING TO PT, WHO VERBALIZED UNDERSTANDING. TRIED CALLING TO PROVIDED HIM WITH DISCHARGE TEACHING. BUT DID NOT GET ANYONE TO ANSWER. PT HAD ALREADY PULLED LT WRIST IV WITH CATHTER TIP INTACT. HEART MONITOR REMOVED AND TAKEN TO PUSHCART PEDDLER. PT LEFT UNIT VIA WHEELCHAIR, WITH ALL BELONGINGS, NAD NOTED.
--- NOTE | 2019-08-06 09:16 | MORECARE ---
CASE MANAGEMENT DISCHARGE SUMMARY PATIENT: TRIP WITT UNIT: [id number] ADM DATE: 08/01/19 AGE: 83 : 36 SEX: F ROOM/BED: D.1316 AUTHOR: SAUL ROSA PHYSICIAN: REFERRING PHYSICIAN: CONNOR GLEZ DO DATE OF SERVICE: 08/06/19 Discharge Plan Patient Name: TRIP WITT Facility: [facility]:[place] : 1935 Planned Disposition: Home Anticipated Discharge Date: Discharge Date: 08/05/2019 Expected LOS: 0 Initial Reviewer: [email or web address] Initial Review Date: 08/01/2019 Generated: 08/06/19 10:16 am Comments DCP- Discharge Planning Updated by [email or web address]: Heavenly Dean on 08/05/19 2:[address] Patient Name: TRIP WITT Encounter No: [id number] : 1935 Primary Insurance: [facility] MEDICARE SOLUTIONS Anticipated DC Date: Planned Disposition: Home External Planned Provider: : DCP follow-up note: Patient in agreement with discharge plan. No changes to plan. Declines home health. States is going home with her spouse. Case management will follow and assist as needed. Heavenly Dean DCP- Discharge Planning Updated by [email or web address]: Socorro Ramos on 08/03/19 5:[address] Patient is slightly confused. PCP: Dr. Banks. Pharmacy: [facility]. Lives independently, home with spouse. DME: walker, cane. Denies steps at home. Emergency contact: Ed Able 4636 (out of service). Caleb Witt (son) [phone]. Verbal permission to speak with her son, Caleb Witt. Denies use of community resources. Patient would benefit use of [facility], has been with [facility] in the past. Denies being hospitalized within past 30 days. CM attempted to reach patient's son, but his phone was busy. CM will continue to follow and assist PRN. DCPIA - Discharge Planning Initial Assessment Updated by [email or web address]: Socorro Ramos on 08/03/19 6:08 pm * Is the patient Alert and Oriented? No * How many steps to enter\exit or inside your home? * PCP Dr. Banks * Pharmacy [facility] * Preadmission Environment Home with Family * ADLs Independent * Equipment Cane Walker * List name and contact numbers for known caregivers / representatives who currently or will assist patient after discharge: Caleb Witt (son) [phone] * Verbal permission to speak to the caregivers and representatives has been obtained from the patient. Yes * Please name any agencies selected above. [facility] in past * Additional services required to return to the preadmission environment? Yes * Can the patient safely return to the preadmission environment? Yes * Has this patient been hospitalized within the prior 30 days at any hospital? 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
== END 2019-08-05 16:13 | disposition home or self-care (01) | DRG 309 ==
LOC: D.ER 17:53 → D.M2 20:13
PROVIDERS: Family Medicine; ADMIT Family Medicine; ATTEND Family Medicine
DX: I48.19 Other persistent atrial fibrillation (principal); N17.9 Acute kidney failure, unspecified; D75.89 Other specified diseases of blood and blood-forming organs; E78.5 Hyperlipidemia, unspecified; E03.9 Hypothyroidism, unspecified; I12.9 Hypertensive chronic kidney disease with stage 1 through stage 4 chronic kidney disease, or unspecified chronic kidney disease; N18.9 Chronic kidney disease, unspecified